=== PATIENT | male | born 1935 | race Caucasian/White ===

== ENCOUNTER → 2017-12-29 09:25 | Outpatient (CLI) | payer MEDICARE, SELFPAY ==
--- NOTE | 2017-12-29 09:29 | CDU_ITS ---
Reason For Study: Carotid artery stenosis Rt. Velocities/BP Lt. Velocities/BP Prox CCA 112/14.1 cm/sec. Prox CCA 80.3/10.6 cm/sec. Mid CCA 88/11.8 cm/sec. Mid CCA 69.8/8.21 cm/sec. Dist CCA 69.1/7.07 cm/sec. Dist CCA 57.5/7.04 cm/sec. Prox ICA 50.7/11.8 cm/sec. Prox ICA 52.2/11.1 cm/sec. Mid ICA 81.5/15.2 cm/sec. Mid ICA 125/25.6 cm/sec. Dist ICA 90.9/14.1 cm/sec. Dist ICA 115/17.2 cm/sec. Rt. ICA/CCA = 1.03. Lt. ICA/CCA = 1.56. Prox ECA 101 cm/sec. Prox ECA 97.4 cm/sec. Rt. Vert. 56.3/10.6 cm/sec. Lt. Vert. 63.3/13.5 cm/sec. Right Extracranial There is heterogeneous, irregular atherosclerotic plaque noted in the right common carotid artery. There is heterogeneous, irregular atherosclerotic plaque noted in the right internal carotid artery. There is heterogeneous, irregular atherosclerotic plaque noted in the right external carotid artery. Antegrade flow is noted in the right vertebral artery. Left Extracranial There is heterogeneous, smooth atherosclerotic plaque noted in the left common carotid artery. There is intimal thickening but no significant atherosclerotic plaque noted in the left internal carotid artery. There is intimal thickening but no significant atherosclerotic plaque noted in the left external carotid artery. Antegrade flow is noted in the left vertebral artery. Procedure Carotid Duplex 27640. Exam performed in department. Interpretation Summary Mild (<50%) stenosis right extracranial internal carotid. Mild (<50%) stenosis left extracranial internal carotid. Flow within the vertebral arteries is antegrade bilaterally. Ordering Physician: Eric Moyer Referring Physician: Carson Burton M.D. Performed By: Gila ADELA, Ashli BURR and Student
== END ==
PROVIDERS: Family Provider Family Medicine; PCP Family Medicine; Referring Provider Surgery Vascular Surgery; Visit Provider Surgery Vascular Surgery
DX: I65.23 Occlusion and stenosis of bilateral carotid arteries (principal); E11.9 Type 2 diabetes mellitus without complications; I10 Essential (primary) hypertension; E78.00 Pure hypercholesterolemia, unspecified
CPT/HCPCS: 93880

== ENCOUNTER → 2018-02-04 07:59 | Outpatient (CLI) | payer MEDICARE, SELFPAY ==
[2018-02-04 10:36] LABS: Anion Gap 10 (5-15); BUN 20 mg/dL (7-18); BUN/Creat Ratio 18.3 RATIO (10-20); Chloride 104 mmol/L (98-107); Cholesterol 164 mg/dL (200); Creatinine, Serum 1.09 mg/dL (0.70-1.30); EST Glomerular Filtration Rate 69 mL/min (>60); Est Glom Filt Rate - Afr Amer 83 mL/min (>60); Glucose 150 mg/dL (74-106); High Density Lipoprotein 37 mg/dL; Potassium 4.5 mmol/L (3.5-5.1); Sodium Level 142 mmol/L (136-145); Triglycerides 207 mg/dL; Very Low Density Lipoprotein 41 mg/dL (5-40)
[2018-02-04 10:37] LABS: Hemoglobin A1c 7.3 % (4.2-6.3)
--- OUTSIDE RECORDS SUMMARY | 2018-03-22 19:34 | XMS RPT_ITS ---
:1935 Author Organization OHIP Care Team Providers Name Role Phone Carson Burton Attending Unavailable Carson Burton Primary Care Unavailable Eric Moyer Attending Unavailable Eric Moyer Referring Unavailable Carson Burton Primary Care Unavailable PROBLEMS PROBLEMS No Problem Records FoundPROCEDURES PROCEDURES No Procedure Records FoundRESULTS RESULTS BASIC METABOLIC Collected: 02/04/2018 Status: F Source: TITO PROFILE (BMP) 8:00 AM [facility] REPOSITORY Order Comment: Order Date: 08/17/17 Order Info: [id number] - BMP Order Info: [id number] - LIPID TYPE CODE TESTS RESULT OUT OF RANGE REFERENCE UNITS LAB L501.0100 74-106 mg/dL High GLU 150 Result Comment: Fasting Glucose result greater than or equal to 126 mg/dL suggests DIABETES MELLITUS per A.D.A. criteria. Please note revised GLUCOSE reference range effective 2017. LAB L501.1000 7-18 mg/dL High BUN 20 LAB L501.1100 0.70-1.30 mg/dL Normal CREAT,SERUM 1.09 Result Comment: The validity of the calculated GFR AND GFRAA in patients over 70 years has not been determined. Clinical correlation is essential. LAB L501.1110 >60 mL/min Normal EST GFR 69 Result Comment: Non- GFR Calc LAB L501.1115 >60 mL/min Normal EST GFR - AA 83 Result Comment: GFR Calc LAB L501.1300 10-20 RATIO Normal BUN/CRE 18.3 LAB L501.2200 8.5-10.1 mg/dL CA Normal 9.0 LAB L501.5300 136-145 mmol/L NA Normal 142 LAB L501.5600 3.5-5.1 mmol/L K Normal 4.5 LAB L501.5900 98-107 mmol/L CL Normal 104 LAB L501.6100 21.0-32.0 mmol/L Normal CO2 28.0 LAB L501.6200 5-15 Normal GAP 10 Performed By: #### L500.2500, L500.4100, L501.9985 #### [facility] [address] [facility]. [place], [place], [id number] LIPID PROFILE Collected: 02/04/2018 Status: F Source: VERGENNES 8:00 AM [facility] REPOSITORY Order Comment: Order Date: 08/17/17 Order Info: [id number] - [facility] Order Info: [id number] - LIPID TYPE CODE TESTS RESULT OUT OF RANGE REFERENCE UNITS LAB L501.4900 200 mg/dL Normal CHOL 164 Result Comment: <200 mg/dL Desirable 200-240 mg/dL Borderline >240 mg/dL High Risk LAB L501.5000 mg/dL High TRIG 207 Result Comment: The drugs N-Acetylcysteine and Metamizole may falsely depress this assay. Serum Triglycerides Reference Interval Normal <150 mg/dL Borderline high 150 - 199 mg/dL High 200 - 499 mg/dL Very High > or = 500 mg/dL LAB L501.6400 mg/dL Low HDL 37 Result Comment: The drugs N-Acetylcysteine and Metamizole may falsely depress this assay. Reference Range HDL <40 mg/dL Low HDL Cholesterol HDL >or= 60 mg/dL High HDL Cholesterol LAB L501.6500 0-130 mg/dL Normal LDL 86 LAB L501.6600 5-40 mg/dL High VLDL 41 Performed By: #### L500.2500, L500.4100, L501.9985 #### [facility] [address] [place], [place], [id number] HEMOGLOBIN A1C Collected: 02/04/2018 Status: F Source: VERGENNES 8:00 AM [facility] REPOSITORY Order Comment: Order Date: 08/17/17 Order Info: [id number] - A1C TYPE CODE TESTS RESULT OUT OF RANGE REFERENCE UNITS LAB L501.9985 4.2-6.3 % High HGB A1C 7.3 Performed By: #### L500.2500, L500.4100, L501.9985 #### [facility] [address] [place], [address] CAROTID DUPLEX Observed: 12/29/2017 Status: F Source: VERGENNES ULTRASOUND 10:49 AM [facility] REPOSITORY [facility] Cardi[facility] Services [address] [place] [address] Carotid Duplex Ultrasound 12/29/17 0932 MR#: [id number] Acct: [id number] Name: JIM CORADO Rep #: [id number] : 1935 82 From: Eric Moyer MD Attending Dr: Eric Moyer MD Status: REG CLI Ordering Dr: Eric Moyer MD Date: 12/29/17 Location: CVS Sex: M C Admitted: Reason For Study: Carotid artery stenosis Rt. Velocities/BP Lt. Velocities/BP Prox CCA 112/14.1 cm/sec. Prox CCA 80.3/10.6 cm/sec. Mid CCA 88/11.8 cm/sec. Mid CCA 69.8/8.21 cm/sec. Dist CCA 69.1/7.07 cm/sec. Dist CCA 57.5/7.04 cm/sec. Prox ICA 50.7/11.8 cm/sec. Prox ICA 52.2/11.1 cm/sec. Mid ICA 81.5/15.2 cm/sec. Mid ICA 125/25.6 cm/sec. Dist ICA 90.9/14.1 cm/sec. Dist ICA 115/17.2 cm/sec. Rt. ICA/CCA = 1.03. Lt. ICA/CCA = 1.56. Prox ECA 101 cm/sec. Prox ECA 97.4 cm/sec. Rt. Vert. 56.3/10.6 cm/sec. Lt. Vert. 63.3/13.5 cm/sec. Right Extracranial There is heterogeneous, irregular atherosclerotic plaque noted in the right common carotid artery. There is heterogeneous, irregular atherosclerotic plaque noted in the right internal carotid artery. There is heterogeneous, irregular atherosclerotic plaque noted in the right external carotid artery. Antegrade flow is noted in the right vertebral artery. Left Extracranial There is heterogeneous, smooth atherosclerotic plaque noted in the left common carotid artery. There is intimal thickening but no significant atherosclerotic plaque noted in the left internal carotid artery. There is intimal thickening but no significant atherosclerotic plaque noted in the left external carotid artery. Antegrade flow is noted in the left vertebral artery. Procedure Carotid Duplex 30309. Exam performed in department. Interpretation Summary Mild (<50%) stenosis right extracranial internal carotid. Mild (<50%) stenosis left extracranial internal carotid. Flow within the vertebral arteries is antegrade bilaterally. Ordering Physician: Eric Moyer Referring Physician: Carson Burton M.D. Performed By: Gila CHAPMAN RVT, Carrie and Student 12/29/178 Date Eric Moyer MD CC: Eric Moyer MD; Carson Burton MD Date Dictated: 12/29/17 0932 Date Transcribed: 12/29/171047 Poultry Killer: Signed ALLERGIES ALLERGIES No Allergies Records FoundENCOUNTERS ENCOUNTERS ADMIT/DISCHARGE ACCOUNT ADMITTING ENCOUNTER LOCATION SOURCE NUMBER [facility] 02/04/2018 [id number] [facility] 2 [facility] ing:MFPLAB Repository 12/29/2017 [id number] [facility] 0 [facility] ing:[facility] Repository PAYERS PAYERS ENCOUNTER GUARANTOR PAYER SUBSCRIBER SOURCE 02/04/2018 JIM Hagan Primary JIM Monroe [id number] Insurance:SAMSON RAFFERTYDOB: [facility] [id number] Number: [place]ository [place] [address]Chd: [phone] [id number] [phone] () Date:[id number] [address] [place] [id number]: 02/04/2018 Secondary NOT GIVENUNK [place] Insurance:SELF PAY [facility] Number: Effective Repository Date:2018-02-04 12/29/2017 JIM Hagan Primary JIM Monroe [id number] Insurance:SAMSON RAFFERTYDOB: [facility] [id number] Number: Repository [place] [address]Oow: [phone] [id number] [phone] () Date:[id number] [address] [phone]: 12/29/2017 Secondary NOT GIVENUNK [place] Insurance:SELF PAY [facility] Number: Effective Repository Date:2017-12-16
== END ==
PROVIDERS: Family Provider Family Medicine; PCP Family Medicine; Visit Provider Family Medicine
DX: I10 Essential (primary) hypertension (principal); E11.9 Type 2 diabetes mellitus without complications; E78.5 Hyperlipidemia, unspecified
CPT/HCPCS: 36415; 80048; 80061; 83036

== ENCOUNTER 2019-01-11 10:23 | Observation (INO) | payer MEDICARE, SELFPAY ==
[2019-01-11] VITALS (12 sets, daily range): BP systolic 149–190; BP diastolic 70–90; PULSE 77–98; RESP 12–19; TEMP 36.7–36.8; O2SAT 95–98; BMI 35.2; BMI 34.7
--- NOTE | 2019-01-11 10:42 | EKG12_ITS ---
Test Reason : REPEAT Blood Pressure : / mmHG Vent. Rate : 077 BPM Atrial Rate : 077 BPM P-R Int : 160 ms QRS Dur : 086 ms QT Int : 424 ms P-R-T Axes : 045 037 135 degrees QTc Int : 479 ms Normal sinus rhythm ST & T wave abnormality, consider anterolateral ischemia Prolonged QT Abnormal ECG Confirmed by NATALEE MILIAN, JULISSA ([id number]), editor house organ JIMMY LOAIZA ([id number]) on 01/13/2019 12:31:24 PM Referred By: Darya Dobbins Confirmed By:LASHANDA ALBRIGHT MD
--- NOTE | 2019-01-11 10:42 | RAD_ITS ---
STUDY: X-RAY CHEST REASON FOR EXAM: Male, 83 years old. Chest pain. TECHNIQUE: Single AP portable view of the chest. COMPARISON: None. FINDINGS: There is elevation of the right hemidiaphragm. Blunting of the right cosmetic angle. There is moderate cardiac enlargement. Normal mediastinum and fabi. Normal visualized pulmonary arteries. There is atherosclerotic calcification of the aortic arch with tortuosity. There are diffuse degenerative changes of the visualized thoracic spine. Normal visualized ribs, clavicles, and shoulders. There is no demonstrated abnormality of the visualized soft tissue structures of the upper abdomen. RAD/Chest 1 View (Portable) IMPRESSION: Moderate cardiomegaly. No acute abnormality is seen. Electronically Signed: Jese Pitt, at 11:03 EST , Service support ,
--- NOTE | 2019-01-11 10:46 | ED.VIS.GEN ---
History of Present Illness Chief Complaint: Chest Pain Informant: Patient, Significant Other Onset: Days - Set January 09 Context: Onset with activity Timing: Intermittent Quality: Soreness Location: Anterior chest Current Severity: Mild Maximum Severity: Moderate Worsened by: Activity Relieved by: Nothing Associated Symptoms: Dyspnea Narrative: Patient is an elderly male who is a poor informant. He needs to be redirected multiple times since he did not answer question. interjected with him she disagreed with his responses. Patient had intermittent anterior chest discomfort that is precipitated by activity. He has had several episodes since Wednesday. He does report dyspnea. He denies radiation, diaphoresis or nausea. He has multiple risk factors. He denies leg swelling. His states he has had swelling for sometimes with imprint of the sock noted at night. He denies orthopnea or PND. concurs. He denies fever or chills. He denies hematemesis, melena hematochezia. He denies food intolerance. There is no history of PE or DVT. Patient takes a low-dose aspirin daily. He has no known coronary artery disease. Prior similar symptoms: No Recent Illness/Hospitalization: No - Past Medical History (1) History of hypertension Status: Acute (2) History of hypercholesterolemia Status: Acute (3) History of diabetes mellitus, type II Status: Acute Past Medical History - Allergies and Home Meds Allergies/Adverse Reactions: Allergies No Known Allergies Allergy (Verified 01/11/19 10:23) Primary Care Physician: Carson Stone MD [Primary Care Provider] - Prior records reviewed: Yes Surgical History: noncontributory Lives: Spouse/ Significant Other Smoking Status: Former smoker Alcohol: None Drugs: None Review of Systems General: Denies: Chills, Fever, Malaise, Subjective, Sweats Eyes: Denies: Visual changes - bilaterally, Blurred Vision - bilaterally, Diplopia ENT: Denies: Rhinorrhea, Sore throat Cardiovascular: Reports: Chest pain. Denies: Palpitations, Heart racing, -, - Respiratory: Reports: Dyspnea, Dyspnea on exertion. Denies: Cough, Sputum, Orthopnea, Paroxysmal nocturnal dyspnea, -, - Gastrointestinal: Denies: Abdominal pain, Nausea, Vomiting, Diarrhea, Melena, Hematochezia Genitourinary: Denies: Dysuria, Hematuria, Frequency Musculoskeletal: Reports: Swelling. Denies: Myalgias, Arthralgias, Neck pain, Back pain, Extremity Pain Skin: Denies: Rash, Wounds Neurological: Denies: Headache, Weakness, Numbness Hematologic: Denies: Easy bruising, Easy bleeding Physical Exam Vital Signs/Narrative: Vital Signs Temp Pulse Resp BP Pulse Ox 01/11/19 10:24 98.1 F 90 17 162/74 H 96 Inital Vital Signs reviewed: Yes General: Well nourished, Well developed, No Acute Distress Head: Normocephalic, Atraumatic Eyes: Perrl, EOMI. Negative for: Pale conjunctiva, Scleral icterus ENT: Moist mucous membranes, No rhinorrhea Neck: Supple, Nontender, No lymphadenopathy, No JVD Cardiovascular: Regular rate, Regular rhythm, No murmurs, Normal S1, Normal S2 Respiratory: No distress, CTA bilaterally, Chest nontender Abdomen: Soft, Nontender, Nondistended, Normal bowel sounds Back: Nontender, Normal Inspection Extremities: Nontender, Edema - Pitting edema bilaterally. There is no discoloration of lower extremities or asymmetry. There is no palpable cords, leg vein distention or tenderness along the distribution of deep venous system. Skin: Normal color, No rash, No Trauma. Negative for: Cyanosis, Diaphoresis, Jaundice Neurological: Alert, Oriented x3, Cranial nerves II-XII grossly intact, Normal Strength, Normal Sensation Psychological: Normal affect, Normal Mood Diagnostic/Tx/Re-eval Chest X-Ray - ED: 1 View, Read by ED Physician, Normal, Mediastinum, Bony Structures, No Acute Disease, Chronic Changes, Cardiomegaly - There is mild to moderate cardiomegaly. The cardiac silhouette is normal. Impressions Chest X-Ray 01/11/19 10:42 IMPRESSION: Moderate cardiomegaly. No acute abnormality is seen. Electronically Signed: Jese Sweetie, at 11:03 EST , Service support , 01/11/19 10:42 Chest 1 View (Portable) [RAD] Stat Laboratory Results 01/11/19 01/11/19 11:28 11:28 WBC 7.7 RBC 4.56 L Hgb 14.6 Hct 43.3 MCV 95.0 H MCH 32.0 MCHC 33.7 RDW Std Deviation 43.7 RDW Coeff of Genesis 12.5 Plt Count 215 MPV 10.8 Immature Gran % (Auto) 0.300 Neut % (Auto) 55.1 Lymph % (Auto) 32.2 [place] % (Auto) 10.0 Eos % (Auto) 1.6 Baso % (Auto) 0.8 Absolute Neuts (auto) 4.3 Absolute Lymphs (auto) 2.48 Nucleated RBC % 0 Sodium 139 Potassium 4.2 Chloride 103 Carbon Dioxide 28.0 Anion Gap 8 BUN 16 Creatinine 1.12 Estim Creat Clear Calc 55.49 Est GFR (MDRD) Af Amer 80 Est GFR (MDRD) Non-Af 66 BUN/Creatinine Ratio 14.3 Glucose 176 H Calcium 9.1 Troponin I < 0.015 Tone is normal which would indicate patient has not had an PR. Since he has EKG changes which are concerning with a good story cardiology was paged as well as hospitalist for admission. - EKG Initial EKG Interpretation: Sinus Rhythm - Sinus rhythm with a ventricular rate 89. CT interval is 162 ms. QRS duration 90 ms. QT duration 402 ms. [place] is normal. There is evidence of anterolateral ischemic changes. Patient is presently having pain. This is different compared to EKG from 25 years ago which is the only old EKG for comparison Prior: Changed - Medical Decision Making Resents with classic exertional angina. Patient's EKG compared to 25 years ago reveals a ischemic changes anterior lateral leads. Patient was treated with aspirin, Lovenox and appropriate work-up was initiated. Will speak with wafer machine operator and hospitalist once laboratory results are available for review. He also received nitroglycerin sublingual. ED Disposition - Plan for ED Patient: Disposition: Acute Care [facility] Diagnosis: Exertional chest pain, History of diabetes mellitus, type II, History of hypercholesterolemia, History of hypertension Referrals: Carson Stone MD [Primary Care Provider] -
--- NOTE | 2019-01-11 10:49 | NURSING ---
NO OLD EKGS
[2019-01-11] MEDS: Aspirin 81 MG TAB.CHEW 324 MG PO (11:28)
[2019-01-11] MEDS: Enoxaparin 100 MG/ML Syringe 120 MG SC (11:29)
[2019-01-11 11:51] LABS: Absolute Lymphocyte Count 2.48 X10^3/uL (0.83-4.51); Absolute Neutrophil Count 4.3 X10^3/uL (2.0-7.7); Basophil# 0.06 X10^3/uL; Basophil% 0.8 % (0-1); Eosinophil# 0.12 X10^3/uL; Eosinophils% 1.6 % (0-5); Hematocrit 43.3 % (40-54); Hemoglobin 14.6 g/dL (13.0-16.5); Lymphocyte # 2.48 X10^3/ul (4.0); Lymphocyte % 32.2 % (19-41); Mean Corp Hgb Conc 33.7 g/dL (32-36); Mean Platelet Vol. 10.8 fl (6.2-12.0); Monocyte# 0.77 X10^3/uL; NRBC Flagged by Analyzer 0 % (0-5); Neutrophil # 4.26 X10^3/uL (2.7-7.7); Neutrophil % 55.1 % (47-70); Platelet Count 215 K/mm3 (150-450); RBC Distribution Width CV 12.5 % (11.6-14.6); RBC Distribution Width SD 43.7 fl (35.1-43.9); Red Blood Count 4.56 M/mm3 (4.6-6.2); White Blood Count 7.7 K/mm3 (4.4-11.0)
[2019-01-11 12:07] LABS: Anion Gap 8 (5-15); BUN 16 mg/dL (7-18); BUN/Creat Ratio 14.3 RATIO (10-20); Calcium,Total 9.1 mg/dL (8.5-10.1); Chloride 103 mmol/L (98-107); Creatinine, Serum 1.12 mg/dL (0.70-1.30); EST Glomerular Filtration Rate 66 mL/min (>60); Est Glom Filt Rate - Afr Amer 80 mL/min (>60); Estimated Creatinine Clearance 55.49 ml/min; Glucose 176 mg/dL (74-106); Potassium 4.2 mmol/L (3.5-5.1); Sodium Level 139 mmol/L (136-145)
--- NOTE | 2019-01-11 12:17 | HP.PCM_ITS ---
History of Present Illness Date of Admission: 01/11/19 Chief Complaint: chest pain The patient is a 83 year old M with a PMH as outlined chrissy. He was admitted through the ED on 01/11/19 with a complaint of chest pain which started a day prior to admission. Chest pain was retrosternal, pressure like, exacerbated by activity and relieved by rest. He had associated shortness of breath which was also exacerbated by activity and relieved by rest. He denied any headache, palpitations, blurred vision, lightheadedness or dizziness. Review of systems was otherwise negative. Initial troponin was negative and CBC was unremarkable. BMP was also unremarkable. Initial EKG did showed T wave inversions in the an terior lateral leads. He has been admitted to manage for chest pain to rule out ACS. [] Past Medical History Allergies No Known Allergies Allergy (Verified 01/11/19 10:23) Home Medications: Ambulatory Orders Medication Instructions Recorded Aspirin 81 mg PO QHS 01/11/19 Atorvastatin Calcium 20 mg PO QHS 01/11/19 Metformin HCl 500 mg PO BID 01/11/19 [place]-3 Fatty Acids/Fish Oil [Fish 1 ea PO DAILY 01/11/19 Oil 1,000 mg Capsule] Quinapril HCl 10 mg PO DAILY 01/11/19 Surgical History: noncontributory Lives: Spouse/ Significant Other Smoking Status: Former smoker Alcohol: None Drugs: None - *Family History Sibling History Items: Heart Disease - says they had valves replaced. Maternal History Items: No pertinent history Review of Systems Constitutional: Denies: Chills, Fever, Malaise, Weakness, Weight Change, Fatigue Eyes: Denies: Blurred vision HEENT: Denies: Head Aches, Sinus Congestion, Sinus Drainage Cardiovascular: Reports: Chest Pain. Denies: Chest Pressure, Chest Tightness, Edema, Heaviness, Orthopnea, Palpitations, Paroxysmal Noc. Dyspnea, Syncope Respiratory: Denies: Cough, Shortness of Breath, Shortness of breath at rest, Shortness of breath upon exertion, Sputum production Gastrointestinal: Denies: Abdominal Pain, Nausea, Vomiting Genitourinary: Denies: Dysuria Musculoskeletal: Denies: Joint Pain, Joint Tenderness Skin: Denies: Rash, Wounds Neurological: Denies: Numbness, Tingling, Focal weakness Psychiatric: Denies: Anxiety, Depression, Homicidal Ideations, Suicidal Ideations Hematologic/ Lymphatic: Denies: Easy Bruising, Easy Bleeding VTE Information - Inpt Only VTE Present on Admission: No VTE Pharm Prophylaxis ordered?: Yes Patient Problems: Active and Suspected Problems History of hypertension (Acute) History of hypercholesterolemia (Acute) History of diabetes mellitus, type II (Acute) Exertional chest pain (Acute) - Physical Exam Vitals/I&O's: Vital Signs Temp Pulse Resp BP Pulse Ox 98.1 F 81 19 H 161/85 H 97 01/11/19 10:24 01/11/19 11:22 01/11/19 11:22 01/11/19 11:22 01/11/19 11:22 Oxygen Flow Rate (L/min) 2 Oxygen Delivery Method Room Air Weight: 267 lb 3.204 oz Body Mass Index (BMI) 35.2 General: Alert, Oriented x3, Cooperative, No apparent distress HEENT: Atraumatic, PERRLA, EOMI, Normocephalic Oral: Moist Mucosa Neck: Supple, No JVD, Negative Carotid Bruits Lungs: Clear to auscultation, Normal air movement, No rhonchi, No wheeze, No rales Cardiovascular: Regular rate, Regular Rhythm, Normal S1, Normal S2, No murmurs Abdomen: Bowel Sounds Present, Soft, Non Tender, Non-Distended, No Hepato- splenomegaly Extremities: No clubbing, No cyanosis, No edema, Capillary Refill Less than 3 Seconds Skin: No rashes, No breakdown Musculoskeletal: No Tenderness to Palpation of Joints or Extremities Lymphatic: No Cervical, Supraclavicular, or Inguinal Adenopathy Neurological: Cranial nerves II-XII grossly intact, Neuro grossly intact, Motor Exam 5/5 strength throughout Psych/Mental Status: Normal Affect, Appropriate, Alert and oriented to time, place, person, mood and affect Laboratory Results 01/11/19 11:28: WBC 7.7, RBC 4.56 L, Hgb 14.6, Hct 43.3, MCV 95.0 H, MCH 32.0, MCHC 33.7, RDW Std Deviation 43.7, RDW Coeff of Genesis 12.5, Plt Count 215, MPV 10.8, Immature Gran % (Auto) 0.300, Neut % (Auto) 55.1, Lymph % (Auto) 32.2, [place] % (Auto) 10.0, Eos % (Auto) 1.6, Baso % (Auto) 0.8, Absolute Neuts (auto) 4.3, Absolute Lymphs (auto) 2.48, Nucleated RBC % 0 01/11/19 11:28: Sodium 139, Potassium 4.2, Chloride 103, Carbon Dioxide 28.0, Anion Gap 8, BUN 16, Creatinine 1.12, Estim Creat Clear Calc 55.49, Est GFR (MDRD) Af Amer 80, Est GFR (MDRD) Non-Af 66, BUN/Creatinine Ratio 14.3, Glucose 176 H, Calcium 9.1, Troponin I < 0.015 Diagnostic Data Chest X-Ray 01/11/19 10:42 IMPRESSION: Moderate cardiomegaly. No acute abnormality is seen. Electronically Signed: Jese Pitt, at 11:03 EST , Service support , Current Medications Nitroglycerin (Nitrostat) 0.4 mg SUBLINGUAL Q5M PRN PRN Reason: Chest pain Assessment/Plan All Active Problems History of hypertension (Acute) History of hypercholesterolemia (Acute) History of diabetes mellitus, type II (Acute) Exertional chest pain (Acute) 83-year-old admitted with complaint of chest pain 1. Chest pain to r/o ACS * admit to pCU with telemetry * initial troponin was negative, and EKG showed t wave inversions in triny lateral leads * will cycle troponins * check lipid panel and A1C * SL nitroglycerin prn; PO aspirin 81mg daily * consult cardiology * 2. Hyperlipidemia * Lipid panel showed triglycerides of 223 and total cholesterol of 188 with LDL of 104 and HDL of 39. On statin. Will continue. 3. Hypertension * Blood pressure was 163/70 at time of review. On lisinopril. Will resume. 4. Type 2 diabetes mellitus: A1c 7.6. Hold metformin. Insulin sliding scale. Accu-Cheks before meals at bedtime. DVT Prophylaxis: Lovenox Code Status: Full code * Patient counseled extensively about different types of CODE STATUS including full code, DNR CCA and DNR CCA. Patient elects to be full code. Total oyxd-gb-qboy time 16 minutes. * Code Visit OBSV E&M: 61350 Initial observation care L2 Procedures: 87833 Advncd Care Plan 30 Min
--- NOTE | 2019-01-11 12:21 | EKG12_ITS ---
Test Reason : CP Blood Pressure : / mmHG Vent. Rate : 089 BPM Atrial Rate : 089 BPM P-R Int : 162 ms QRS Dur : 090 ms QT Int : 402 ms P-R-T Axes : 062 048 131 degrees QTc Int : 489 ms Normal sinus rhythm ST & T wave abnormality, consider anterolateral ischemia Prolonged QT Abnormal ECG Confirmed by NATALEE MILIAN, JULISSA ([id number]), movie editor JIMMY LOAIZA ([id number]) on 01/13/2019 12:31:40 PM Referred By: Darya Dobbins Confirmed By:LASHANDA ALBRIGHT MD
[2019-01-11] MEDS: TICAGRELOR 90 MG TABLET 180 MG PO (12:42)
[2019-01-11 13:40] LABS: Cholesterol 188 mg/dL (200); High Density Lipoprotein 39 mg/dL; Triglycerides 223 mg/dL; Very Low Density Lipoprotein 45 mg/dL (5-40)
[2019-01-11 13:47] LABS: Hemoglobin A1c 7.6 % (4.2-6.3)
--- NOTE | 2019-01-11 14:24 | ECHOCS_ITS ---
Reason For Study: CHEST PAIN Procedure This was a 2D Doppler, Color Flow transthoracic echocardiogram. The study was technically difficult. Due to body habitus. Contrast injection was performed. Exam performed portable in ICU/CCU. Left Ventricle Moderate concentric left ventricular hypertrophy. The estimated ejection fraction is 75 %. Stage 1 diastolic dysfunction. No regional wall motion abnormalities noted. Right Ventricle Normal size and thickness. Normal systolic function. Atria The left atrium is severely enlarged. Normal right atrium. Normal atrial septum. Mitral Valve Mild diffuse mitral valve thickening. Severe mitral annular calcification extending into the posterior leaflet. Trivial mitral valve insufficiency. Tricuspid Valve Normal tricuspid valve. Mild (1+) tricuspid valve insufficiency. Right ventricular systolic pressure estimated to be 39 mmHg. Mild pulmonary hypertension. Aortic Valve Normal aortic valve. Trisinus/trileaflet aortic valve. Pulmonic Valve Normal pulmonic valve. Great Vessels Normal aortic root. Normal arch. Normal inferior vena cava. Inferior vena cava collapse with sniff. Pericardium/Pleural No pericardial effusion. Medication Diluted definity 3.0ml given slow IV push to enhance endocardial definition. MMode/2D Measurements & Calculations LVIDd: 5.0 cm IVSd: 1.5 cm Ao root diam: 3.7 cm LVIDs: 3.0 cm LVPWd: 1.3 cm RVDd: 3.6 cm FS: 38.9 % LAV(MOD-bp): 126.9 ml LA A4 area: 31.9 cm2 LA dimension(2D): 4.7 cm LAV(MOD-bp) Indexed: 52.6 ml/m2 LAV(MOD-sp2): 120.3 ml LAV(MOD-sp4): 113.7 ml RA A4 area: 14.8 cm2 Time Measurements MV dec time: 0.19 sec Doppler Measurements & Calculations MV E max lambert: 102.8 cm/sec Lat Peak E' Lambert: 5.3 cm/sec Med Peak E' Lambert: 5.0 cm/sec MV A max lambert: 136.0 cm/sec E/E' lat: 19.4 E/E' med: 20.4 MV E/A: 0.76 Ao V2 max: 137.4 cm/sec LV V1 max: 108.1 cm/sec PA V2 max: 97.8 cm/sec Ao max P.5 mmHg LV V1 max P.7 mmHg TR max lambert: 291.0 cm/sec TR max P.9 mmHg Interpretation Summary Moderate concentric left ventricular hypertrophy. The estimated ejection fraction is 75 %. Stage 1 diastolic dysfunction. The left atrium is severely enlarged. Trivial mitral valve insufficiency. Mild (1+) tricuspid valve insufficiency. Right ventricular systolic pressure estimated to be 39 mmHg. Mild pulmonary hypertension. Compared to echo report dated 04/09/2016, no appreciable changes noted. The study was technically difficult. Contrast injection was performed. Ordering Physician: Alex Fernández Referring Physician: Carson Stone Performed By: Stefani Mir, ADELA, RVT
--- NOTE | 2019-01-11 15:31 | CON.PCM_ITS ---
Problem List (1) Abnormal EKG Status: Acute (2) History of hypertension Status: Acute (3) History of hypercholesterolemia Status: Acute (4) History of diabetes mellitus, type II Status: Acute (5) Exertional chest pain Status: Acute Reason for Consult Date of Consultation: 01/11/19 Reason for Consultation: Unstable angina, chest pain, shortness of breath, dyspnea on exertion, abnormal EKG, hypertension, peripheral vascular disease, hyperlipidemia History of Present Illness: The patient is a 83 year old M, no previous known coronary disease, last catheterization was in 1995 at a facility in [place] and was told his arteries were normal, with hypertension, diabetes, hypercholesterolemia, peripheral vascular disease status post left carotid CEA by Dr. Moyer in 2017. Prior to that I had seen him in consultation and ordered a stress test which was negati ve. He is a former smoker who quit around 45 years ago. He has never been evaluated for COPD. He denies previous CVA or TIA. Patient has been in normal health up until the last several months when he has had progressively worsening fatigue, shortness of breath and dyspnea on exertion. Over the last 2 weeks this has progressed to exertional chest pressure and pain which was described as a heaviness, nonradiating, with associated shortness of breath. When it occurred again today his family urged him to come to the emergency room. In the ER his EKG showed normal sinus rhythm with anterior T wave inversion. The patient was given a single sublingual nitroglycerin and his chest pain completely resolved and has not returned. The patient was loaded with baby aspirin, Brilinta, and admitted to the PCU. He is currently resting comfortably, family at the bedside. He has had no recurrence of his chest pain. Troponin is negative. Second troponin is pending. [] Past Medical History Allergies/Adverse Reactions: Allergies No Known Allergies Allergy (Verified 01/11/19 10:23) Home Medications: Ambulatory Orders Medication Instructions Recorded Aspirin 81 mg PO QHS 01/11/19 Atorvastatin Calcium 20 mg PO QHS 01/11/19 Metformin HCl 500 mg PO BID 01/11/19 [place]-3 Fatty Acids/Fish Oil [Fish 1 ea PO DAILY 01/11/19 Oil 1,000 mg Capsule] Quinapril HCl 10 mg PO DAILY 01/11/19 Surgical History: noncontributory - *Family History Sibling History Items: Heart Disease - says they had valves replaced. Maternal History Items: No pertinent history Lives: Spouse/ Significant Other Smoking Status: Former smoker Alcohol: None Drugs: None Review of Systems - Review of Systems General: Denies: Fever, Night Sweats, Fatigue Cardiovascular: Reports: Chest Discomfort, Chest Discomfort with Exertion, Chest Pressure, Chest Tightness, Shortness of Breath, Shortness of Breath with Exertion. Denies: Orthopnea, PND, Peripheral Edema, Palpitations, Lightheadedness, Dizziness, Near Syncope, Syncope Respiratory: Denies: Cough, Sputum Production, Hemoptysis Gastrointestinal: Denies: Hematemesis, Hematochezia, Melena Genitourinary: Denies: Dysuria, Hematuria Skin: Denies: Rash Subjectve: Patient resting comfortably, no acute distress. Objective: Vital Signs Temp Pulse Resp BP Pulse Ox 98.3 F 77 16 163/70 H 97 01/11/19 13:07 01/11/19 13:33 01/11/19 13:33 01/11/19 13:33 01/11/19 13:33 Oxygen Flow Rate (L/min) 2 Oxygen Delivery Method Room Air Weight: 263 lb 0.183 oz Body Mass Index (BMI) 34.7 General: Awake, Alert, Oriented x 3 HEENT: PERRL, EOMI, Sclera Non Icteric Neck: Supple, Good ROM, No Lymph Node Enlargement Lungs: Clear to auscultation Cardiovascular: Regular Rhythm, Normal S1, Normal S2, No Murmurs, No Rubs, No Gallops Vascular: No Carotid Bruits, Normal Femoral Pulses, Normal Radial Pulses, Normal Dorsalis Pedal Pulse, Normal Posterior Tibial Pulses Abdomen: Bowel Sounds Present, Soft, Non Tender, No HSM, No Organomegaly Extremities: No Cyanosis, No Clubbing, No edema Neurological: No Focal Motor or Sensory Deficit 01/11/19 11:28: WBC 7.7, RBC 4.56 L, Hgb 14.6, Hct 43.3, MCV 95.0 H, MCH 32.0, MCHC 33.7, Plt Count 215, MPV 10.8, Immature Gran % (Auto) 0.300, Neut % (Auto) 55.1, Lymph % (Auto) 32.2, [place] % (Auto) 10.0, Eos % (Auto) 1.6, Baso % (Auto) 0.8, Absolute Neuts (auto) 4.3, Nucleated RBC % 0 01/11/19 11:28: Sodium 139, Potassium 4.2, Chloride 103, Carbon Dioxide 28.0, Anion Gap 8, BUN 16, Creatinine 1.12, Est GFR (MDRD) Af Amer 80, Est GFR (MDRD) Non-Af 66, BUN/Creatinine Ratio 14.3, Glucose 176 H, Calcium 9.1, Troponin I < 0.015 01/11/19 11:28: Triglycerides 223 H, Cholesterol 188, LDL Cholesterol 104, VLDL Cholesterol 45 H, HDL Cholesterol 39 L 01/11/19 11:28: Hemoglobin A1c 7.6 H Rhythm: Telemetry negative. EKG: As above ECHO: Pending Stress Test: Cardiac Cath: Pending PCI: CT Surgery: Holter monitor: EPS: PPM: CXR: Chest CT Scan: Assessment/Plan 1. Unstable angina: Patient presents with new onset anginal symptoms over the last 2 weeks with associated dyspnea on exertion, shortness of breath, and fatigue over the last 6 months. Patient has several risk factors for coronary occlusive disease including his age, peripheral vascular disease, diabetes, former smoker, hypertension hypercholesterolemia. His EKG on presentation showed normal sinus rhythm with anterior T wave inversions. His chest pain was relieved with a single sublingual nitroglycerin. I recommend the patient be placed on Nitropaste 1 inch every 6 hours, he was already loaded with aspirin, as well as Brilinta, as well as Lovenox per protocol. In addition I recommend that he be started on Lopressor 25 mg p.o. twice daily, and change his lisinopril to Zestoretic 20/12.5 mg a day given his lower extremity edema and uncontrolled hypertension. Given the patient's signs and symptoms and abnormal EKG, I recommend that he proceed directly to cardiac catheterization as doing a stress test may be unwise if not dangerous. The risk/benefits of the cardiac catheterization procedure were thoroughly explained to the patient, his , and his daughter, including specific attention to lack of on-site surgical back-up, and the patient is agreed to proceed. We will proceed with cardiac catheterization on 01/12/2019. In addition I recommend he undergo a 2D echo with Doppler to evaluate his LV function, pulmonary pressures, and pericardium. 2. Hyperlipidemia: The patient's LDL is 104 and HDL is 39. Recommend increasing his Lipitor to 40 mg p.o. nightly and repeating lipid profile in 6 weeks time. 3. Peripheral vascular disease: Patient may benefit from long-term dual antibiotic therapy depending upon the outcome of his catheterization. He is status post left CEA in 2017. 4. Thank you very much for the opportunity to participate in the cardiac care of your patient. Consultation time took place between 3:00 and 3:40 PM. Code Visit Inpatient E&M: [id number] Init Hosp L2
[2019-01-11] MEDS: Nitroglycerin Oint 1 INCH PACKET TRANSDERM. ×2 (17:00→23:45)
[2019-01-11] MEDS: Insulin Lispro 100 UNIT/ML INSULN.PEN SC (17:01)
[2019-01-11 17:06] LABS: Bedside Glucose 197 mg/dL (70-110)
[2019-01-11] MEDS: Atorvastatin Calcium 40 MG Tablet PO (22:03)
[2019-01-11] MEDS: Metoprolol Tartrate 25 MG Tablet PO (22:03)
[2019-01-11 22:45] LABS: Bedside Glucose 147 mg/dL (70-110)
[2019-01-12] VITALS (26 sets, daily range): BP systolic 107–191; BP diastolic 51–98; PULSE 55–80; RESP 13–20; TEMP 36.1–36.7; O2SAT 93–99
--- NOTE | 2019-01-12 02:45 | EKG12_ITS ---
Test Reason : CP Blood Pressure : / mmHG Vent. Rate : 067 BPM Atrial Rate : 067 BPM P-R Int : 164 ms QRS Dur : 092 ms QT Int : 472 ms P-R-T Axes : 067 045 122 degrees QTc Int : 498 ms Normal sinus rhythm ST & T wave abnormality, consider anterolateral ischemia Prolonged QT Abnormal ECG When compared with ECG of 11-JAN-2019 13:11, MANUAL COMPARISON REQUIRED, DATA IS UNCONFIRMED Confirmed by MALGORZATA MILIAN, NENO ([id number]), pictures editor JIMMY LOAIZA ([id number]) on 01/16/2019 10:02:13 AM Referred By: Darya Dobbins Confirmed By:NENO MCGARRY MD
[2019-01-12] MEDS: Morphine 2 MG/ML Syringe IV (03:11)
[2019-01-12] MEDS: 0.9% Saline Lock 10 ML Syringe IV ×2 (03:12→06:25)
[2019-01-12 03:30] LABS: Absolute Lymphocyte Count 2.64 X10^3/uL (0.83-4.51); Absolute Neutrophil Count 5.3 X10^3/uL (2.0-7.7); Basophil# 0.07 X10^3/uL; Basophil% 0.8 % (0-1); Eosinophil# 0.16 X10^3/uL; Eosinophils% 1.7 % (0-5); Hematocrit 42.6 % (40-54); Hemoglobin 14.5 g/dL (13.0-16.5); Lymphocyte # 2.64 X10^3/ul (4.0); Lymphocyte % 28.4 % (19-41); Mean Platelet Vol. 10.4 fl (6.2-12.0); Monocyte# 1.06 X10^3/uL; Monocyte% 11.4 % (0-10); NRBC Flagged by Analyzer 0 % (0-5); Neutrophil # 5.32 X10^3/uL (2.7-7.7); Neutrophil % 57.2 % (47-70); Platelet Count 211 K/mm3 (150-450); RBC Distribution Width CV 12.4 % (11.6-14.6); RBC Distribution Width SD 42.6 fl (35.1-43.9); Red Blood Count 4.53 M/mm3 (4.6-6.2); White Blood Count 9.3 K/mm3 (4.4-11.0)
[2019-01-12 03:52] LABS: Anion Gap 8 (5-15); BUN 15 mg/dL (7-18); BUN/Creat Ratio 13.3 RATIO (10-20); Chloride 102 mmol/L (98-107); Creatinine, Serum 1.13 mg/dL (0.70-1.30); EST Glomerular Filtration Rate 66 mL/min (>60); Est Glom Filt Rate - Afr Amer 80 mL/min (>60); Glucose 174 mg/dL (74-106); Potassium 4.4 mmol/L (3.5-5.1); Sodium Level 137 mmol/L (136-145)
[2019-01-12] MEDS: HYDROcodone Bitartrate/Apap 5/325 Tablet PO (04:45)
[2019-01-12] MEDS: DiphenhydrAMINE 25 MG Capsule 50 MG PO (06:18)
[2019-01-12] MEDS: 0.9% Normal Saline 1,000 ML 15 ML IV (06:18)
[2019-01-12] MEDS: Nitroglycerin Oint 1 INCH PACKET TRANSDERM. (06:19)
[2019-01-12] MEDS: Metoprolol Tartrate 25 MG Tablet PO ×2 (06:19→21:00)
[2019-01-12] MEDS: Lisinopril 20 MG Tablet PO (06:20)
[2019-01-12] MEDS: Aspirin 81 MG TAB.CHEW PO (06:24)
[2019-01-12 06:40] LABS: Bedside Glucose 190 mg/dL (70-110)
--- NOTE | 2019-01-12 08:20 | NURSING ---
Called report to Skinny MUÑOZ in ICU
[2019-01-12 08:50] LABS: ACT Activated Clotting Time 180 sec (74-137)
--- NOTE | 2019-01-12 08:57 | CL.I_ITS ---
Patient Name: JIM CORADO Study Date: 01/12/2019 Performing: Alex Fernández MD Ht: 73 inches 185 cm : 1935 Wt: 262.7 lbs 119 kg Age: 83 Gender: male BSA: 2.41 PROCEDURE(S) PERFORMED JV18-EJB/COR/LV UZ18-KBC W OR WO PTCA, SINGLE CORONARY ARTERY CLINICAL PROFILE AND CO-MORBIDITIES Indications: ACS > 24 hrs, New Onset Angina <= 2 months, Suspected CAD Heart Failure: None Stress/Imaging Stress/Image Study Performed: No Angina Classification Anginal Classification w/in 2 Weeks: CCS III CAD Presentations: Unstable angina. Other: Abnormal ECG with dynamic anterior lateral ST depressi on and T wave inversion c/w ischmemia. Stress test felt to be too dangerous prior to cath. Comorbidities/Risk Factors: Hypertension Dyslipidemia CONCLUSIONS Non obstructive coronary arteries Single vessel CAD of the proximal, mid and distal LAD Normal LV size, wall motion,and systolic function Perserved Left Ventricular systolic function with normal EDP Successful PTCA/HUDSON mid/distal LAD with a 2.25 x 38 Promus Synergy, post dilated in the proximal 1/3 with a 2.5 x 12 NC balloon, 85%-->0%, no dissection. Successful PTCA/HUDSON proximal/mid LAD using a 2.5 x 38 Promus Synergy, post dilated with a 2.5, 3.0 an d 3.5 x 8 NC balloon at various locations due to ectactic nature of vessel to insure proper stent harjinder osition, 85%-->0%, no dissection. RECOMMENDATIONS Referred for immediate PCI Highly recommend quitting all tobacco products Follow up with primary ship's master Risk factor modification ASA Indefinitley Brilinta or Plavix for at least 12 months Routine post interventional care Refer for Outpatient Cardiac Rehab Manual sheath removal per protocol Follow up with Dr. Fernández Successful Mynx Control closure of RFA. DESCRIPTION OF PROCEDURE The patient arrived to the procedure lab. The risks and benefits of the procedure as well as a full d escription of our services here and lack of surgical backup were fully explained to the patient and/o r their significant other prior to the catheterization. The Timeout was completed, verifying the shawn ect patient and procedure. The patient's procedural site was prepped and draped in the usual fashion. Local anesthetic was given subcutaneously to right groin region with Lidocaine 2%. Using a modified Seldinger technique, arterial access was obtained via the right femoral artery, a 4Fr sheath was inse rted. Left Coronary Artery selective angiography was performed in multiple views using a 4 Fr. JL5 c atheter. Right Coronary Artery selective angiography was then performed in multiple views using a 4 F r. 3DRC catheter. Left Ventriculography was performed in RSUSELL projection using a 4 Fr. Pigtail cathete rThe images were reviewed and options discussed. A decision was then made to proceed with an Intervention, IVUS or other adjunct procedure. Arterial sheath was exchanged for a 6 Fr x 55cm Sheath. EBU 3.75 Guide catheter was inserted and engaged into the LCA. BMW Guide wire was advanced to the LAD. 2 x 12 EMERGE Balloon catheter was adva nced across lesion in the LAD, distal. Angiogram performed pre balloon dilatation. PTCA balloon infla yaniv at 8 atms for 10 secs. PTCA balloon inflated at 10 atms for 10 secs. Balloon catheter was advance d across lesion in the LAD, mid. PTCA balloon inflated at 10 atms for 10 secs. Balloon catheter was a dvanced across lesion in the LAD, proximal. PTCA balloon inflated at 10 atms for 12 secs. PTCA balloo n inflated at 12 atms for 14 secs. 2.25 X 38 SYNERGY Drug Eluting stent was advanced across the lesio n in the LAD, distal and LAD mid. Drug Eluting stent was advanced across the lesion in the LAD, proxi mal. Angiogram performed post stent deployment. 3 x 12 NC EMERGE Balloon catheter was inserted post s tent. Angiogram performed post balloon dilatation. 3.5 x 8 NC Emerge Balloon catheter was inserted post stent. Angiogram performed post balloon dilatation. Contrast was injected through the s debra and the Right Iliac and Femoral artery were assessed for possible closure device. The arterial sheath was pulled and a Mynx closure device was deployed for hemostasis CORONARY ANGIOGRAPHY DOMINANCE: Right Dominant LEFT HEART ASSESSMENT Left Ventricular Ejection Fraction: by LV Gram 75 % Normal Left Ventricular systolic function Normal Left Ventricular End Diastolic Pressure LVEDP: 8 mmHg Normal LV wall motion LEFT MAIN: Non-obstructive LEFT ANTERIOR DESCENDING ARTERY: PROX LAD: 85 % Stenosis, Mild calcification MID LAD: 75 % Stenosis DISTAL LAD: 85 % Stenosis CIRCUMFLEX ARTERY: MID CIRC: Moderate luminal irregularities up to 50% RIGHT CORONARY ARTERY: MID RCA: 50 % Stenosis INTERVENTION INFORMATION LESION SITE: LAD (Distal) Lesion Complexity: High/C, lesion at bifurcation: No, thrombus present: No, lesion length: 38 mm, cul prit lesion: No Pre Stenosis: 85 % Pre intervention KENDELL flow: 3 PROCEDURE: Drug Eluting Stent with pre and post dilatation Post Stenosis: 0 % Post intervention KENDELL flow: 3 Lesion Devices: [place] .014 BMW [place] Straight 190cm Tho Sci EMERGE MR 2.00x12 BALLOON Medtronic 6 Fr EBU3.75 100cm Guide Catheter Tho Sci Synergy MR HUDSON 2.25x38 Tho Sci NC EMERGE MR 3.00x12 BALLOON LESION SITE: LAD (Proximal) Lesion Complexity: High/C, lesion at bifurcation: No, thrombus present: No, lesion length: 38 mm, cul prit lesion: Yes Pre Stenosis: 85 % Pre intervention KENDELL flow: 3 PROCEDURE: Drug Eluting Stent with pre and post dilatation Post Stenosis: 0 % Post intervention KENDELL flow: 3 Lesion Devices: [place] .014 BMW [place] Straight 190cm Medtronic 6 Fr EBU3.75 100cm Guide Catheter Tho Sci Synergy MR HUDSON 2.25x38 Tho Sci NC EMERGE MR 3.00x12 BALLOON Lesion Devices: Pharmacy 500ml Heparin Flush Medtronic 6 Fr EBU3.75 100cm Guide Catheter Tho Sci Synergy MR HUDSON 2.50x38 Tho Sci NC EMERGE MR 3.00x12 BALLOON Tho Sci NC EMERGE MR 3.50x08 BALLOON COMPLICATIONS No Complications PROCEDURE MEDICATIONS Oxygen: 2 L/min via nasal cannula Brilinta 90 mg PO @ 01/12/2019 08:31:19 Heparin 6000 unit(s) IV 01/12/2019 07:53:51 Nitro 200 mcg IC 01/12/2019 07:55:56 Nitro 200 mcg IC 01/12/2019 07:55:56 IV Bolus: .9 NaCl 700 ml total 01/12/2019 08:44:00 IV Fluids: .9 NaCl increased to WO ml/hr 01/12/2019 07:51:33 SUMMARY OF HEMODYNAMIC DATA Time AIR REST ECG 07:19:59 AO 146/59 (88) SA 07:42:35 LV 165/-8, 30 07:49:41 LV 162/-5, 32 07:49:46 LVp 162/-8, 30 07:49:52 AOp 159/58 (97) 07:49:57 Signed By Alex Fernández MD On 01/12/2019 8:56:14 AM Alex Fernández MD
--- NOTE | 2019-01-12 08:58 | EKG12_ITS ---
Test Reason : CP ADMISSION Blood Pressure : / mmHG Vent. Rate : 074 BPM Atrial Rate : 074 BPM P-R Int : 170 ms QRS Dur : 092 ms QT Int : 430 ms P-R-T Axes : 064 047 135 degrees QTc Int : 477 ms Normal sinus rhythm ST & T wave abnormality, consider anterolateral ischemia Prolonged QT Abnormal ECG No previous ECGs available Confirmed by MALGORZATA MILIAN, NENO ([id number]), art editor JIMMY LOAIZA ([id number]) on 01/16/2019 10:03:16 AM Referred By: Darya Dobbins Confirmed By:NENO MCGARRY MD
[2019-01-12] MEDS: 0.9% Normal Saline 1,000 ML 150 ML IV (09:10)
--- NOTE | 2019-01-12 10:00 | EKG12_ITS ---
Test Reason : AM EKG Blood Pressure : / mmHG Vent. Rate : 068 BPM Atrial Rate : 068 BPM P-R Int : 174 ms QRS Dur : 096 ms QT Int : 468 ms P-R-T Axes : 066 052 126 degrees QTc Int : 497 ms Sinus rhythm with Premature atrial complexes ST & T wave abnormality, consider anterolateral ischemia Prolonged QT Abnormal ECG Confirmed by MALGORZATA MILIAN, NENO ([id number]), school photograph editor SANDRA AMOS ([id number]) on 01/23/2019 12:04:12 PM Referred By: Darya Dobbins Confirmed By:NENO MCGARRY MD
--- NOTE | 2019-01-12 10:43 | PN_ITS ---
Patient Problems: Active and Suspected Problems History of hypertension (Acute) History of hypercholesterolemia (Acute) History of diabetes mellitus, type II (Acute) Exertional chest pain (Acute) Abnormal EKG (Acute) Subjective: Patient seen and examined. He has no complaints and feels well. Review of systems otherwise negative. He status post cardiac cath with successful stenting of the proximal, mid and distal LAD. Labs and vitals reviewed. Vitals/I&O's: Vital Signs Temp Pulse Resp BP Pulse Ox 97.0 F L 56 L 16 134/60 H 97 01/12/19 09:00 01/12/19 10:30 01/12/19 10:30 01/12/19 10:30 01/12/19 10:30 Oxygen Flow Rate (L/min) 2 Oxygen Delivery Method Room Air Weight: 263 lb 0.183 oz Body Mass Index (BMI) 34.7 Intake and Output for Last 24 Hours 01/10/19 01/11/19 01/12/19 23:59 23:59 23:59 Intake Total 240 / 240 0 / 0 Balance 240 / 240 0 / 0 General: Alert, Oriented x3, Cooperative, No apparent distress HEENT: Atraumatic, PERRLA, EOMI, Normocephalic Oral: Moist Mucosa Neck: Supple, No JVD, Negative Carotid Bruits Lungs: Clear to auscultation, Normal air movement, No rhonchi, No wheeze, No ral es Cardiovascular: mild bradycardia, Regular Rhythm, Normal S1, Normal S2, No murmurs Abdomen: Bowel Sounds Present, Soft, Non Tender, Non-Distended, No Hepato- splenomegaly Extremities: No clubbing, No cyanosis, No edema, Capillary Refill Less than 3 Seconds Skin: No rashes, No breakdown Musculoskeletal: No Tenderness to Palpation of Joints or Extremities Lymphatic: No Cervical, Supraclavicular, or Inguinal Adenopathy Neurological: Cranial nerves II-XII grossly intact, Neuro grossly intact, Motor Exam 5/5 strength throughout Psych/Mental Status: Normal Affect, Appropriate, Alert and oriented to time, place, person, mood and affect Laboratory Results 01/11/19 11:28: WBC 7.7, RBC 4.56 L, Hgb 14.6, Hct 43.3, MCV 95.0 H, MCH 32.0, MCHC 33.7, RDW Std Deviation 43.7, RDW Coeff of Genesis 12.5, Plt Count 215, MPV 10.8, Immature Gran % (Auto) 0.300, Neut % (Auto) 55.1, Lymph % (Auto) 32.2, Jackson % (Auto) 10.0, Eos % (Auto) 1.6, Baso % (Auto) 0.8, Absolute Neuts (auto) 4.3, Absolute Lymphs (auto) 2.48, Nucleated RBC % 0 01/11/19 11:28: Sodium 139, Potassium 4.2, Chloride 103, Carbon Dioxide 28.0, Anion Gap 8, BUN 16, Creatinine 1.12, Estim Creat Clear Calc 55.49, Est GFR (MDRD) Af Amer 80, Est GFR (MDRD) Non-Af 66, BUN/Creatinine Ratio 14.3, Glucose 176 H, Calcium 9.1, Troponin I < 0.015 01/11/19 11:28: Triglycerides 223 H, Cholesterol 188, LDL Cholesterol 104, VLDL Cholesterol 45 H, HDL Cholesterol 39 L 01/11/19 11:28: Hemoglobin A1c 7.6 H 01/11/19 15:16: Troponin I < 0.015 01/11/19 16:53: POC Glucose 197 H 01/11/19 17:08: Troponin I < 0.015 01/11/19 22:01: POC Glucose 147 H 01/12/19 03:22: WBC 9.3, RBC 4.53 L, Hgb 14.5, Hct 42.6, MCV 94.0, MCH 32.0, MCHC 34.0, RDW Std Deviation 42.6, RDW Coeff of Genesis 12.4, Plt Count 211, MPV 10.4, Immature Gran % (Auto) 0.500, Neut % (Auto) 57.2, Lymph % (Auto) 28.4, Jackson % (Auto) 11.4 H, Eos % (Auto) 1.7, Baso % (Auto) 0.8, Absolute Neuts (auto) 5.3, Absolute Lymphs (auto) 2.64, Nucleated RBC % 0 01/12/19 03:22: Sodium 137, Potassium 4.4, Chloride 102, Carbon Dioxide 27.0, Anion Gap 8, BUN 15, Creatinine 1.13, Estim Creat Clear Calc 55.00, Est GFR (MDRD) Af Amer 80, Est GFR (MDRD) Non-Af 66, BUN/Creatinine Ratio 13.3, Glucose 174 H, Calcium 9.0 01/12/19 03:22: Troponin I < 0.015 01/12/19 06:16: POC Glucose 190 H 01/12/19 08:25: Activated Clotting Time 180 H Diagnostic Data Chest X-Ray 01/11/19 10:42 IMPRESSION: Moderate cardiomegaly. No acute abnormality is seen. Electronically Signed: Jese Sweetie, at 11:03 EST , Service support , Current Medications Acetaminophen (Tylenol) 650 mg PO Q6H PRN PRN PRN Reason: Pain Score 1-3/10 Hydrocodone Bitart/Acetaminophen ([place] 5mg-325mg) 1 - 2 tablet PO Q4H PRN PRN PRN Reason: Pain Score 4-10/10 Last Admin: 01/12/19 04:45 Dose: 1 tablet Documented by: Albuterol Sulfate (Ventolin Aerosols) 2.5 mg INHALATION Q2H PRN PRN PRN Reason: dyspnea, wheezing Aspirin (Ecotrin) 81 mg PO DAILY@0800 DONYA Atorvastatin Calcium (Lipitor) 40 mg PO QHS [facility] Last Admin: 01/11/19 22:03 Dose: 40 mg Documented by: Atropine Sulfate () 0.5 mg IV UD PRN PRN Reason: HR <50 bpm Dextrose (D50w Syringe) 0 gm IV X1 PRN; Protocol PRN Reason: Hypoglycemia Glucagon () 1 mg IM .X1 PRN PRN Reason: Hypoglycemia Heparin Sodium (Beef Lung) (Heparin 500 Unit/5 Ml (100/Ml)) 500 unit IV UD PRN PRN Reason: HEPARIN FLUSH Hydralazine HCl (Apresoline Iv) 10 mg IV Q4H PRN PRN PRN Reason: SBP > 160 Hydrochlorothiazide () 12.5 mg PO DAILY DONYA Sodium Chloride () 1,000 mls @ 0 mls/hr IV .Q0M [facility] Last Infusion: 01/12/19 06:18 Dose: 0 mls/hr Documented by: Sodium Chloride () 1,000 mls @ 150 mls/hr IV .Q6H40M [facility] Stop: 01/12/19 15:37 Insulin Human Lispro (Humalog Kwikpen (Bkc)) 0 unit SC ACHS [facility]; Protocol Last Admin: 01/11/19 22:02 Dose: Not Given Documented by: Labetalol HCl (Trandate) 5 mg IV X1 PRN PRN Reason: SBP > 160 when pulling sheath Lisinopril (Zestril) 20 mg PO DAILY [facility] Last Admin: 01/12/19 06:20 Dose: 20 mg Documented by: Lorazepam (Ativan) 1 mg PO Q6H PRN PRN PRN Reason: BACK SPASMS/ANXIETY Metoprolol Tartrate (Lopressor (Beta Candi)) 25 mg PO BID [facility] Last Admin: 01/12/19 06:19 Dose: 25 mg Documented by: Morphine Sulfate () 1 - 2 mg IV Q4H PRN PRN PRN Reason: Pain Score 1-10/10 Last Admin: 01/12/19 03:11 Dose: 2 mg Documented by: Sodium Chloride () 10 - 40 ml IV UD PRN PRN Reason: SALINE FLUSH Last Admin: 01/12/19 06:25 Dose: 10 ml Documented by: Sodium Chloride () 500 ml IV BOLUS PRN PRN Reason: VASO-VAGAL PROTOCOL Ticagrelor (Brilinta) 90 mg PO BID [facility] STROKE Vital Signs/Narrative: Vital Signs Temp Pulse Resp BP Pulse Ox 01/12/19 10:30 56 L 16 134/60 H 97 01/12/19 10:00 60 18 144/69 H 99 01/12/19 09:45 60 18 139/75 H 97 01/12/19 09:29 57 L 16 126/61 H 95 01/12/19 09:15 57 L 15 146/61 H 96 01/12/19 09:00 97.0 F L 60 14 132/75 H 96 01/12/19 07:02 67 Medical Necessity - Tobacco Use Smoking Status: Former smoker Assessment/Plan All Active Problems History of hypertension (Acute) History of hypercholesterolemia (Acute) History of diabetes mellitus, type II (Acute) Exertional chest pain (Acute) Abnormal EKG (Acute) 83-year-old admitted with complaint of chest pain 1. Unstable angina * s/p cardiac cath with placement of HUDSON in proximal, mid and distal LAD * on aspirin, statin and brilinta * cardiology on board * will benefit from outpatient cardiac rehab * 2. Hyperlipidemia * Lipid panel showed triglycerides of 223 and total cholesterol of 188 with LDL of 104 and HDL of 39. on high intensity statin 3. Hypertension * fairly controlled. On lisinopril. 4. Type 2 diabetes mellitus: * A1c 7.6. metformin on hold. * To resume in 48 hours time due to administration contrast dye. * Insulin sliding scale. * Accu-Cheks before meals at bedtime. DVT Prophylaxis: Lovenox Code Status: Full code Disposition: for dc home tomorrow Code Visit OBSV E&M: 32092 Subsequent observation care L2
[2019-01-12 12:05] LABS: Bedside Glucose 143 mg/dL (70-110)
--- NOTE | 2019-01-12 13:22 | CASEMGMT ---
TONI SANTILLAN Note: Intro role of CM to patient and [facility]CH[employer] form explained re: Observation status for treatment of chest pain/PCI. Explained hospitalization will be paid per? [facility] insurance policy for Outpatient billing?and condition will continue to be evaluated for Inpt necessity. Also let pt know that [facility] sends paper in the billing packet with their phone number if questions arise. Discussed Pharmacy section of [facility]CH[employer] form and self administered medication guideline.? Pt verbalizes understanding and does not have further questions. Form signed and placed in chart, copy to pt. IVANIA MUÑOZ BSN CM
[2019-01-12] MEDS: hydroCHLOROthiazide 12.5mg 12.5 MG PO (15:41)
[2019-01-12 18:05] LABS: Bedside Glucose 145 mg/dL (70-110)
[2019-01-12] MEDS: Insulin Lispro 100 UNIT/ML INSULN.PEN SC (21:00)
[2019-01-12] MEDS: TICAGRELOR 90 MG TABLET PO (21:00)
[2019-01-12] MEDS: Atorvastatin Calcium 40 MG Tablet PO (21:01)
[2019-01-12 21:11] LABS: Bedside Glucose 195 mg/dL (70-110)
[2019-01-13] VITALS (14 sets, daily range): BP systolic 101–156; BP diastolic 51–67; PULSE 55–85; RESP 14–20; TEMP 36.2–36.9; O2SAT 90–97; BMI 34.8
[2019-01-13 04:14] LABS: Hematocrit 44.7 % (40-54); Hemoglobin 15.2 g/dL (13.0-16.5); Mean Corpuscular Hgb 32.1 pg (27.0-32.0); Mean Corpuscular Volume 94.3 fL (80-94); Mean Platelet Vol. 10.6 fl (6.2-12.0); Platelet Count 221 K/mm3 (150-450); RBC Distribution Width CV 12.5 % (11.6-14.6); RBC Distribution Width SD 43.4 fl (35.1-43.9); Red Blood Count 4.74 M/mm3 (4.6-6.2); White Blood Count 11.4 K/mm3 (4.4-11.0)
[2019-01-13 04:35] LABS: AST(SGOT) 25 U/L (15-37); Alanine Aminotransfer ALT/SGPT 29 U/L (16-61); Albumin, Serum 3.8 g/dL (3.2-5.0); Alkaline Phosphatase 67 U/L (45-117); Anion Gap 9 (5-15); BUN 17 mg/dL (7-18); BUN/Creat Ratio 13.8 RATIO (10-20); Chloride 101 mmol/L (98-107); Creatinine, Serum 1.23 mg/dL (0.70-1.30); EST Glomerular Filtration Rate 60 mL/min (>60); Est Glom Filt Rate - Afr Amer 72 mL/min (>60); Estimated Creatinine Clearance 50.52 ml/min; Globulin 3.7 g/dL (2.2-4.2); Glucose 171 mg/dL (74-106); Potassium 3.7 mmol/L (3.5-5.1); Protein, Total 7.5 g/dL (6.4-8.2); Sodium Level 137 mmol/L (136-145)
[2019-01-13] MEDS: Insulin Lispro 100 UNIT/ML INSULN.PEN SC (08:02)
[2019-01-13] MEDS: Aspirin E.C. 81 MG Tablet PO (08:03)
[2019-01-13 08:11] LABS: Bedside Glucose 171 mg/dL (70-110)
--- NOTE | 2019-01-13 08:12 | PN.CARD_ITS ---
Subjectve: Patient feels much better this morning, no 24-hour events. Telemetry negative. EKG shows normal sinus rhythm with resolving anterior T wave inversion. Right groin is clean/dry/intact. Hemoglobin and creatinine within nominal limits. Objective: Vital Signs Temp Pulse Resp BP Pulse Ox 97.2 F L 71 15 142/56 H 96 01/13/19 08:00 01/13/19 08:00 01/13/19 08:00 01/13/19 08:00 01/13/19 08:00 Oxygen Flow Rate (L/min) 2 Oxygen Delivery Method Room Air Weight: 263 lb 0.183 oz Body Mass Index (BMI) 34.7 Intake and Output for Last 24 Hours 01/11/19 01/12/19 01/13/19 23:59 23:59 23:59 Intake Total 240 / 240 1400 / 1500 100 / 100 Output Total 900 / 1450 550 / 550 Balance 240 / 240 500 / 50 -450 / -450 General: Awake, Alert, Oriented x 3 HEENT: PERRL, EOMI, Sclera Non Icteric Neck: Supple, Good ROM, No Lymph Node Enlargement Lungs: Clear to auscultation Cardiovascular: Regular Rhythm, Normal S1, Normal S2, No Murmurs, No Rubs, No Gallops Vascular: No Carotid Bruits, Normal Femoral Pulses, Normal Radial Pulses, Normal Dorsalis Pedal Pulse, Normal Posterior Tibial Pulses Abdomen: Bowel Sounds Present, Soft, Non Tender, No HSM, No Organomegaly Extremities: No Cyanosis, No Clubbing, No edema Neurological: No Focal Motor or Sensory Deficit 01/13/19 03:50: WBC 11.4 H, RBC 4.74, Hgb 15.2, Hct 44.7, MCV 94.3 H, MCH 32.1 H , MCHC 34.0, Plt Count 221, MPV 10.6 01/13/19 03:50: Sodium 137, Potassium 3.7, Chloride 101, Carbon Dioxide 27.0, Anion Gap 9, BUN 17, Creatinine 1.23, Est GFR (MDRD) Af Amer 72, Est GFR (MDRD) Non-Af 60, BUN/Creatinine Ratio 13.8, Glucose 171 H, Calcium 9.0, Total Bilirubin 1.10 H Rhythm: EKG: ECHO: Pending Stress Test: Cardiac Cath: Significant LAD stenosis, status post angioplasty and drug-eluting stenting x2 to the LAD, nonobstructive disease of his left circumflex, and a possibly significant mid right coronary artery stenosis. PCI: CT Surgery: Holter monitor: EPS: PPM: CXR: Chest CT Scan: Medical Necessity - Tobacco Use Smoking Status: Former smoker Assessment/Plan 1. Unstable angina: Patient presents with new onset anginal symptoms over the last 2 weeks with associated dyspnea on exertion, shortness of breath, and fat igue over the last 6 months. Patient has several risk factors for coronary occlusive disease including his age, peripheral vascular disease, diabetes, former smoker, hypertension hypercholesterolemia. His EKG on presentation showed normal sinus rhythm with anterior T wave inversions. His chest pain was relieved with a single sublingual nitroglycerin. Patient underwent cardiac catheterization on 01/12/2019 which showed significant diffuse disease throughout the entirety of his LAD, nonobstructive disease of his left circumflex, and a possibly significant mid right coronary artery stenosis. The patient had drug-eluting stenting x2 to the LAD, and medical management of his remaining coronaries. I recommended that he undergo a treadmill echocardiogram in 2 weeks time to evaluate for inferior ischemia and if this is abnormal, he may require intervention of his mid right coronary artery stenosis. The meantime he will continue baby aspirin, Brilinta, hydrochlorothiazide, lisinopril and metoprolol. 2D echo Doppler demonstrates moderate LVH, hyperdynamic LV function with an EF of 75%, severe left atrial enlargement, and mild pulmonary hypertension with an RVSP of 39 mmHg. 2. Hyperlipidemia: The patient's LDL is 104 and HDL is 39. Recommend increasing his Lipitor to 40 mg p.o. nightly and repeating lipid profile in 6 weeks time. 3. Peripheral vascular disease: Patient may benefit from long-term dual anti platelet therapy given his history of carotid disease. He is status post left CEA in 2017. 4. Thank you very much for the opportunity to participate in the cardiac care of your patient. He may be discharged home today and follow-up with Dr. Fernández going forward. Code Visit Inpatient E&M: 51948 Subs Hosp L2
--- NOTE | 2019-01-13 08:43 | CRPHASE1_ITS ---
Patient Communication PHII Cardiac Rehab Discussed with Patient:: Yes Guide to Cardiac Rehab Given to Patient:: Yes Cardiac Rehab Facility Choice List Given to Patient:: Yes - [facility] Choice Program [facility] CR PHII:: Communication Given to CR Invertebrate Paleontologist:: Alex Fernández PCP:: Carson Stone Sessions:: 36 sessions - 3 days/wk, 12 weeks Risk Factors/Lifestyle Smoking Status: Former smoker Hx Hypertension: Yes Hx Diabetes Mellitus Type 2: Yes - ON METFORMIN Hx Metabolic Disorders: Yes Hx Dyslipidemia: Yes Hx Obesity: Yes Height: 1.85 m Weight:: 119.3 kg BMI: 34.8 ETOH: No Caffeine: Yes Substance Abuse: No Risk Factor for Sedentary Lifestyle: Lowest Risk Past Cardiac Illness: Previous PCI w/Stent Laboratory Values: Cardiac Rehab Phase I Labs Hemoglobin A1c 7.6 % (4.2-6.3) H 01/11/19 11:28 Triglycerides 223 mg/dL (-199) H 01/11/19 11:28 Cholesterol 188 mg/dL (200) 01/11/19 11:28 LDL Cholesterol 104 mg/dL (0-130) 01/11/19 11:28 HDL Cholesterol 39 mg/dL (40-) L 01/11/19 11:28 Phase I Education Given On:: [place], Nutrition, Antiplatelet medication, CHF, Smoking cessation, Diabetes - Type II Issues Affecting Care:: None Knowledge of Condition:: Yes Learning Preferences: Verbal Hospital Course Pain Description: Crushing Cardiac Cath Date:: 01/12/19 Medical/Surgical History [place]:: No Angina:: Yes Pulmonary:: Yes Diabetes Type II:: Yes Hypertension:: Yes Dyslipidemia:: Yes PTCA:: Yes Discharge/Home/Social Eval Discharge Disposition: Home Cardiac Rehabilitation Info Cardiac Rehabilitation Program Information: Cardiac Rehabilitation is important for patients like you who are recovering from a heart problem. Cardiac rehabilitation programs are recognized as integral to the continued care of the patient with coronary heart disease. The cardiac rehabilitation program is designed to optimize a patient's physical, psychological, and social functioning. Health client care specialist work in cardiac rehabilitation programs and assist you with getting the treatments you need to get stronger and healthier - like exercise, healthy eating habits, and medications. Cardiac rehabilitation has been show to help people with heart problems live longer and have better life enjoyment than people who do not go to cardiac rehabilitation. Please contact the Cardiac Rehabilitation Program at [facility] at in two weeks if you have not heard from them.
--- NOTE | 2019-01-13 08:47 | CRPH1.INSTRU ---
General Education CAD and cardiac anatomy and function:: Patient communicates acknowledgment Explanation of diagnoses and procedures:: Patient communicates acknowledgment Sign/Symptoms of AL:: Not instructed Antiplatelet therapy: Not instructed Proper use of NTG-SL: Not instructed Emergency procedures and activation of EMS: Not instructed Compliance of all prescribed medications: Not instructed Smoking Patient Nicotine/Smoking Risk Factors Are:: Non-smoker Nicotine/Smoking Response Code:: Patient communicates acknowledgment Dyslipidemia Patient Dyslipidemia Risk Factors Are:: Total Cholesterol - 188, Triglycerides - 233, HDL - 39, LDL - 104 Dyslipidemia Response Code:: Patient communicates acknowledgment Overweight/Obesity Patient Overweight/Obesity Risk Factors Are:: Obesity - > or = 30 Overweight/Obesity:: Patient communicates acknowledgment Hypertension Recommendations Include:: Maintain BP <130/85, BP <130/80 if diabetic, DASH dietary guidelines, Decrease/maintain normal body weight Heart Disease Patient Heart Disease Risk Factors Are:: Previous cardiac event Heart Disease Response Code:: Patient communicates acknowledgment Diabetes Recommendations Include:: Maintain fasting blood sugars 70-110 md/dL, Maintain HgbA1c of 6% or less, Monitor blood sugar as prescribed, Diabetic dietary guidelines, Decrease/maintain body weight Diabetes:: Patient communicates acknowledgment Metabolic Syndrome Patient Metabolic Syndrome Risk Factors Are [3 of 5]:: Fasting blood sugar > 100 mg/dL, Waist circumference > 35 [female] or 40 [male], High triglyceride >150, Hypertension, Low HDL <40 [male] or < 50 [female] Metabolic Syndrome Response Code:: Patient communicates acknowledgment Sedentary Sedentary Response Code:: Patient communicates acknowledgment Stress Stress Response Code:: Patient communicates acknowledgment
--- NOTE | 2019-01-13 08:58 | EKG12_ITS ---
Test Reason : POST PCI Blood Pressure : / mmHG Vent. Rate : 063 BPM Atrial Rate : 063 BPM P-R Int : 172 ms QRS Dur : 094 ms QT Int : 482 ms P-R-T Axes : 071 060 114 degrees QTc Int : 493 ms Normal sinus rhythm ST & T wave abnormality, consider anterolateral ischemia Prolonged QT Confirmed by MALGORZATA MILIAN, NENO ([id number]), industrial editor SANDRA AMOS ([id number]) on 01/23/2019 12:58:33 PM Referred By: Darya Dobbins Confirmed By:NENO MCGARRY MD
--- NOTE | 2019-01-13 09:17 | PCM.DC ---
- Discharge Diagnoses Current Active Problems: Current Active and Chronic Problems (Last Updated 01/12/19 @ 14:14 by Yuni Womack) Atherosclerosis of coronary artery of [place] heart without angina pectoris (Chronic) Successful PTCA/HUDSON mid/distal LAD with a 2.25 x 38 Promus Synergy, post dilated in the proximal 1/3 with a 2.5 x 12 NC balloon, 85%-->0%, no dissection. Successful PTCA/HUDSON proximal/mid LAD using a 2.5 x 38 Promus Synergy, post dilated with a 2.5, 3.0 and 3.5 x 8 NC balloon at various locations due to ectactic nature of vessel to insure proper stent apposition, 85%-->0%, no dissection. Stented coronary artery (Chronic 01/12/19) Successful PTCA/HUDSON mid/distal LAD with a 2.25 x 38 Promus Synergy, post dilated in the proximal 1/3 with a 2.5 x 12 NC balloon, 85%-->0%, no dissection. Successful PTCA/HUDSON proximal/mid LAD using a 2.5 x 38 Promus Synergy, post dilated with a 2.5, 3.0 and 3.5 x 8 NC balloon at various locations due to ectactic nature of vessel to insure proper stent apposition, 85%-->0%, no dissection. 01/12/2019 History of hypertension (Acute) History of hypercholesterolemia (Acute) History of diabetes mellitus, type II (Acute) Exertional chest pain (Acute) Abnormal EKG (Acute) You will use the following diet at home:: Cardiac Your food should be the consistency of: Regular Discharge Activity: Return to Normal Activity Weight Bearing Status: Weight bearing as tolerated Call your doctor if you observe: Shortness of breath, Dizziness, Chest pain Instructions: Angina, Recognizing a Heart Attack or Angina Allergies/Adverse Reactions: Allergies No Known Allergies Allergy (Verified 01/11/19 10:23) Medications to take at Discharge Aspirin 81 mg PO QHS 01/11/19 Metformin HCl 500 mg PO BID 01/11/19 [place]-3 Fatty Acids/Fish Oil [Fish Oil 1,000 mg Capsule] 1 ea PO DAILY 01/11/19 Quinapril HCl 10 mg PO DAILY 01/11/19 Atorvastatin Calcium [Lipitor] 40 mg PO QHS #30 tab 01/13/19 Metoprolol Tartrate [Lopressor (beta santos)] 25 mg PO BID #60 tab 01/13/19 Ticagrelor [Brilinta] 90 mg PO BID #60 tab 01/13/19 hydroCHLOROthiazide [Hydrochlorothiazide] 12.5 mg PO DAILY #30 cap 01/13/19 The following prescriptions were given: Ticagrelor [Brilinta] 90 mg PO BID #60 tab Transmission Status: Pending to [facility] hydroCHLOROthiazide [Hydrochlorothiazide] 12.5 mg PO DAILY #30 cap Transmission Status: [facility] Atorvastatin Calcium [Lipitor] 40 mg PO QHS #30 tab Transmission Status: [facility] Metoprolol Tartrate [Lopressor (beta santos)] 25 mg PO BID #60 tab Transmission Status: Pending to [facility] Orders to be completed after discharge: Phase II, Outpatient Cardiac Rehab Location: None Selected Primary Care Physician: Carson Stone MD [Primary Care Provider] - Please follow up with your Primary Care Physician in: one week Test Results: Test results from this visit will be discussed in further detail at your follow-up appointment, if applicable. Please Follow Up With: Alex Fernández MD When: 2-3 weeks; please call office for appointment Proposed Discharge Date: 01/13/19
--- NOTE | 2019-01-13 09:19 | PCM.DC.SUM ---
Discharge Date and Diagnosis Date of Admission: 01/11/19 Date of Discharge: 01/13/19 - Primary Discharge Diagnosis Active and Suspected Problems (Last Updated 01/12/19 @ 14:14 by Yuni Womack) History of hypertension (Acute) History of hypercholesterolemia (Acute) History of diabetes mellitus, type II (Acute) Exertional chest pain (Acute) Abnormal EKG (Acute) unstable angina - Secondary Discharge Diagnosis Chronic Problems (Last Updated 01/12/19 @ 14:13 by Yuni Womack) Atherosclerosis of coronary artery of [place] heart without angina pectoris (Chronic) Successful PTCA/HUDSON mid/distal LAD with a 2.25 x 38 Promus Synergy, post dilated in the proximal 1/3 with a 2.5 x 12 NC balloon, 85%-->0%, no dissection. Successful PTCA/HUDSON proximal/mid LAD using a 2.5 x 38 Promus Synergy, post dilated with a 2.5, 3.0 and 3.5 x 8 NC balloon at various locations due to ectactic nature of vessel to insure proper stent apposition, 85%-->0%, no dissection. Stented coronary artery (Chronic 01/12/19) Successful PTCA/HUDSON mid/distal LAD with a 2.25 x 38 Promus Synergy, post dilated in the proximal 1/3 with a 2.5 x 12 NC balloon, 85%-->0%, no dissection. Successful PTCA/HUDSON proximal/mid LAD using a 2.5 x 38 Promus Synergy, post dilated with a 2.5, 3.0 and 3.5 x 8 NC balloon at various locations due to ectactic nature of vessel to insure proper stent apposition, 85%-->0%, no dissection. 01/12/2019 Hospital Course and Treatment Imaging Results: Diagnostic Data Chest X-Ray 01/11/19 10:42 IMPRESSION: Moderate cardiomegaly. No acute abnormality is seen. Electronically Signed: Jese Pitt, at 11:03 EST , Service support , Interpretation Summary Moderate concentric left ventricular hypertrophy. The estimated ejection fraction is 75 %. Stage 1 diastolic dysfunction. The left atrium is severely enlarged. Trivial mitral valve insufficiency. Mild (1+) tricuspid valve insufficiency. Right ventricular systolic pressure estimated to be 39 mmHg. Mild pulmonary hypertension. Compared to echo report dated 04/09/2016, no appreciable changes noted. The study was technically difficult. Contrast injection was performed. cardiology- Dr Fernández Operations: None Procedures: Cardiac catheterization Summary of Care Provided: The patient is a 83 year old M with a PMH as outlined chrissy. He was admitted through the ED on 01/11/19 with a complaint of chest pain which started a day prior to admission. Chest pain was retrosternal, pressure like, exacerbated by activity and relieved by rest. He had associated shortness of breath which was also exacerbated by activity and relieved by rest. He denied any headache, palpitations, blurred vision, lightheadedness or dizziness. Review of systems was otherwise negative. Initial troponin was negative and CBC was unremarkable. BMP was also unremarkable. Initial EKG did showed T wave inversions in the anterior lateral leads. He was admitted to be managed for chest pain to rule out ACS. Troponins x3 were negative. However EKG showed T wave inversions in anterolateral leads and cardiology was consulted. 2D echo done showed EF of 75% with stage I diastolic dysfunction and severely enlarged left atrium. RVSP was estimated to be 39 mmHg. Patient had a cardiac cath on 01/12/2019 which showed single-vessel coronary artery disease of the proximal, mid and distal LAD with blockage of about 85%. He had successful PTCA and drug-eluting stent placements in the proximal, mid and distal LAD. He was transferred to the ICU after procedure for closer monitoring. Patient remained stable. He was started on high intensity statin, as well as aspirin, and Brilinta. Patient remained stable and was discharged home on 01/13/2019. 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 He was also discharged with a prescription for p.o. metoprolol plus hydrochlorothiazide to keep his blood pressure well controlled. Patient seen and examined. He felt well and was eager to go home. He had no complaints. Review of systems otherwise negative. Labs and vitals reviewed. Home medication reviewed and reconciled. o/e: Vital Signs Height 6 ft 0.83 in Weight: 263 lb 0.183 oz Weight in Pounds 263.0 lbs BMI 34.8 Pulse Ox 97 Temperature 97.5 F Pulse Rate 85 Respiratory Rate 18 Blood Pressure [2nd BP] 104/63 Blood Pressure 122/54 Blood Pressure Position [2nd Semi-Fowlers BP] Blood Pressure Position Semi-Fowlers General: Alert, Oriented x3, Cooperative, No apparent distress HEENT: Atraumatic, PERRLA, EOMI, Normocephalic Oral: Moist Mucosa Neck: Supple, No JVD, Negative Carotid Bruits Lungs: Clear to auscultation, Normal air movement, No rhonchi, No wheeze, No rales Cardiovascular: mild bradycardia, Regular Rhythm, Normal S1, Normal S2, No murmurs Abdomen: Bowel Sounds Present, Soft, Non Tender, Non-Distended, No Hepato-splenomegaly Extremities: No clubbing, No cyanosis, No edema, Capillary Refill Less than 3 Seconds Skin: No rashes, No breakdown Musculoskeletal: No Tenderness to Palpation of Joints or Extremities Lymphatic: No Cervical, Supraclavicular, or Inguinal Adenopathy Neurological: Cranial nerves II-XII grossly intact, Neuro grossly intact, Motor Exam 5/5 strength throughout Psych/Mental Status: Normal Affect, Appropriate, Alert and oriented to time, place, person, mood and affect Plan as above. - Physical Exam Vitals/I&O's: Vital Signs Temp Pulse Resp BP Pulse Ox 97.2 F L 78 18 104/63 97 01/13/19 08:00 01/13/19 09:00 01/13/19 09:00 01/13/19 09:00 01/13/19 09:00 Oxygen Flow Rate (L/min) 2 Oxygen Delivery Method Room Air Weight: 263 lb 0.183 oz Body Mass Index (BMI) 34.7 Intake and Output for Last 24 Hours 01/11/19 01/12/19 01/13/19 23:59 23:59 23:59 Intake Total 240 / 240 1400 / 1500 100 / 100 Output Total 900 / 1450 550 / 550 Balance 240 / 240 500 / 50 -450 / -450 Laboratory Results 01/12/19 12:03: POC Glucose 143 H 01/12/19 18:03: POC Glucose 145 H 01/12/19 20:58: POC Glucose 195 H 01/13/19 03:50: WBC 11.4 H, RBC 4.74, Hgb 15.2, Hct 44.7, MCV 94.3 H, MCH 32.1 H, MCHC 34.0, RDW Std Deviation 43.4, RDW Coeff of Genesis 12.5, Plt Count 221, MPV 10.6 01/13/19 03:50: Sodium 137, Potassium 3.7, Chloride 101, Carbon Dioxide 27.0, Anion Gap 9, BUN 17, Creatinine 1.23, Estim Creat Clear Calc 50.52, Est GFR (MDRD) Af Amer 72, Est GFR (MDRD) Non-Af 60, BUN/Creatinine Ratio 13.8, Glucose 171 H, Calcium 9.0, Total Bilirubin 1.10 H, AST 25, ALT 29, Alkaline Phosphatase 67, Total Protein 7.5, Albumin 3.8, Globulin 3.7, Albumin/Globulin Ratio 1.0 01/13/19 08:01: POC Glucose 171 H Current Medications Acetaminophen (Tylenol) 650 mg PO Q6H PRN PRN PRN Reason: Pain Score 1-3/10 Hydrocodone Bitart/Acetaminophen ([place] 5mg-325mg) 1 - 2 tablet PO Q4H PRN PRN PRN Reason: Pain Score 4-10/10 Last Admin: 01/12/19 04:45 Dose: 1 tablet Documented by: Albuterol Sulfate (Ventolin Aerosols) 2.5 mg INHALATION Q2H PRN PRN PRN Reason: dyspnea, wheezing Aspirin (Ecotrin) 81 mg PO DAILY@0800 [facility] Last Admin: 01/13/19 08:03 Dose: 81 mg Documented by: Atorvastatin Calcium (Lipitor) 40 mg PO QHS [facility] Last Admin: 01/12/19 21:01 Dose: 40 mg Documented by: Atropine Sulfate () 0.5 mg IV UD PRN PRN Reason: HR <50 bpm Dextrose (D50w Syringe) 0 gm IV X1 PRN; Protocol PRN Reason: Hypoglycemia Glucagon () 1 mg IM .X1 PRN PRN Reason: Hypoglycemia Heparin Sodium (Beef Lung) (Heparin 500 Unit/5 Ml (100/Ml)) 500 unit IV UD PRN PRN Reason: HEPARIN FLUSH Hydralazine HCl (Apresoline Iv) 10 mg IV Q4H PRN PRN PRN Reason: SBP > 160 Hydrochlorothiazide () 12.5 mg PO DAILY [facility] Last Admin: 01/12/19 15:41 Dose: 12.5 mg Documented by: Sodium Chloride () 1,000 mls @ 0 mls/hr IV .Q0M [facility] Last Infusion: 01/12/19 16:02 Dose: Infused Documented by: Insulin Human Lispro (Humalog Maritzapen (Bkc)) 0 unit SC ACHS [facility]; Protocol Last Admin: 01/13/19 08:02 Dose: 1 u Documented by: Labetalol HCl (Trandate) 5 mg IV X1 PRN PRN Reason: SBP > 160 when pulling sheath Lisinopril (Zestril) 20 mg PO DAILY [facility] Last Admin: 01/12/19 06:20 Dose: 20 mg Documented by: Lorazepam (Ativan) 1 mg PO Q6H PRN PRN PRN Reason: BACK SPASMS/ANXIETY Metoprolol Tartrate (Lopressor (Beta Candi)) 25 mg PO BID [facility] Last Admin: 01/12/19 21:00 Dose: 25 mg Documented by: Morphine Sulfate () 1 - 2 mg IV Q4H PRN PRN PRN Reason: Pain Score 1-10/10 Last Admin: 01/12/19 03:11 Dose: 2 mg Documented by: Sodium Chloride () 10 - 40 ml IV UD PRN PRN Reason: SALINE FLUSH Last Admin: 01/12/19 06:25 Dose: 10 ml Documented by: Sodium Chloride () 500 ml IV BOLUS PRN PRN Reason: VASO-VAGAL PROTOCOL Ticagrelor (Brilinta) 90 mg PO BID [facility] Last Admin: 01/12/19 21:00 Dose: 90 mg Documented by: Discharge Diet: Low fat/ Low Cholesterol Discharge Activity: Return to Normal Activity Weight Bearing Status: Weight bearing as tolerated Call your doctor if you observe: Shortness of breath, Dizziness, Chest pain Home Medications: Medications to take at Discharge Aspirin 81 mg PO QHS 01/11/19 Metformin HCl 500 mg PO BID 01/11/19 [place]-3 Fatty Acids/Fish Oil [Fish Oil 1,000 mg Capsule] 1 ea PO DAILY 01/11/19 Quinapril HCl 10 mg PO DAILY 01/11/19 Atorvastatin Calcium [Lipitor] 40 mg PO QHS #30 tab 01/13/19 Metoprolol Tartrate [Lopressor (beta candi)] 25 mg PO BID #60 tab 01/13/19 Ticagrelor [Brilinta] 90 mg PO BID #60 tab 11/22/19 hydroCHLOROthiazide [Hydrochlorothiazide] 12.5 mg PO DAILY #30 cap 01/13/19 Following Prescrptions Were Given to Patient: Ticagrelor [Brilinta] 90 mg PO BID #60 tab [facility]: [facility] hydroCHLOROthiazide [Hydrochlorothiazide] 12.5 mg PO DAILY #30 cap [facility] Atorvastatin Calcium [Lipitor] 40 mg PO QHS #30 tab [facility]: [facility] Metoprolol Tartrate [Lopressor (beta candi)] 25 mg PO BID #60 tab Transmission [facility]: [id number] Other Amb Orders: Phase II, Outpatient Cardiac Rehab Location: None Selected Primary Care Physician: Carson Stone MD [Primary Care Provider] - Please follow up with your Primary Care Physician in: one week Please Follow Up With: lAex Fernández MD When: 2-3 weeks; please call office for appointment Patient Instructions: Recognizing a Heart Attack or Angina, Angina Disposition: Home Minutes spent on discharge:: 40 Patient Condition:: Stable Medical Necessity - Tobacco Use Smoking Status: Former smoker Meaningful Use Info Meaningful Use Diagnoses (Choose all that apply): AMI - AMI Aspirin given w/in 24hrs of arrival?: Yes ASA at discharge?: Yes Statins at discharge?: Yes Bahman/ARB at discharge?: Yes Beta Candi at discharge?: Yes Done w/ Acute AL measure.: Yes Documented LVEF (%): 75 Code Visit OBSV E&M: 53753 Observation care discharge
[2019-01-13] MEDS: Metoprolol Tartrate 25 MG Tablet PO (09:38)
== END 2019-01-13 10:40 | disposition home or self-care (01) ==
LOC: ED 12:16 → PCU 01-12 02:54 → ICU 01-12 09:10
PROVIDERS: Family Medicine; Internal Medicine Cardiovascular Disease; Admitting Provider Student in an Organized Health Care Education/Training Program; Emergency Provider Emergency Medicine; Family Provider Family Medicine; PCP Family Medicine; Referring Provider Student in an Organized Health Care Education/Training Program; Visit Provider Student in an Organized Health Care Education/Training Program
DX: I25.110 Atherosclerotic heart disease of native coronary artery with unstable angina pectoris (principal); E11.51 Type 2 diabetes mellitus with diabetic peripheral angiopathy without gangrene; I10 Essential (primary) hypertension; I08.1 Rheumatic disorders of both mitral and tricuspid valves; Z87.891 Personal history of nicotine dependence; Z79.899 Other long term (current) drug therapy; Z79.82 Long term (current) use of aspirin; Z79.84 Long term (current) use of oral hypoglycemic drugs; E78.5 Hyperlipidemia, unspecified
CPT/HCPCS: 36415; 71045; 80048; 80053; 80061; 82962; 83036; 84484; 85025; 85027; 85347; 92928; 93005; 93306; 93458; 96361; 96372; 96374; 99218; 99285; C1760; J7030; Q9957; Q9967; A4216; C1725; C1769; C1874; C1887; C1894; C8929; C9600; G0378

== ENCOUNTER → 2019-02-06 12:34 | Outpatient (CLI) | payer MEDICARE, SELFPAY ==
[2019-01-11 13:15] VITALS: BMI 34.7
--- NOTE | 2019-02-06 12:36 | CDU_ITS ---
Reason For Study: Stenosis Rt. Velocities/BP Lt. Velocities/BP Prox CCA 87/6 cm/sec. Prox CCA 86/8 cm/sec. Mid CCA 73/8 cm/sec. Mid CCA 69/5 cm/sec. Dist CCA 50/4 cm/sec. Dist CCA 51/5 cm/sec. Prox ICA 50/6 cm/sec. Prox ICA 29/5 cm/sec. Mid ICA 94/20 cm/sec. Mid ICA 169/32 cm/sec. Dist ICA 97/17 cm/sec. Dist ICA 76/11 cm/sec. Rt. ICA/CCA = 1.3. Lt. ICA/CCA = 2.5. Prox ECA 89 cm/sec. Prox ECA 131 cm/sec. Rt. Vert. 63/11 cm/sec. Lt. Vert. 63/9 cm/sec. Right Extracranial There is heterogeneous, irregular atherosclerotic plaque noted in the right common carotid artery. There is heterogeneous, irregular atherosclerotic plaque noted in the right internal carotid artery. There is heterogeneous, smooth atherosclerotic plaque noted in the right external carotid artery. Antegrade flow is noted in the right vertebral artery. Left Extracranial There is heterogeneous, smooth atherosclerotic plaque noted in the left common carotid artery. There is intimal thickening but no significant atherosclerotic plaque noted in the left internal carotid artery. Lt ICA dives. There is intimal thickening but no significant atherosclerotic plaque noted in the left external carotid artery. Antegrade flow is noted in the left vertebral artery. Procedure Carotid Duplex 62415. Exam performed in department. Interpretation Summary Mild (<50%) stenosis right extracranial internal carotid. Moderate (50-69%) stenosis left extracranial internal carotid. Flow within the vertebral arteries is antegrade bilaterally. Ordering Physician: Eric Moyer Referring Physician: Carson Stone Performed By: Sharla Cardona, ADELA, RVT
== END ==
PROVIDERS: Family Provider Family Medicine; PCP Family Medicine; Referring Provider Surgery Vascular Surgery; Visit Provider Surgery Vascular Surgery
DX: I65.23 Occlusion and stenosis of bilateral carotid arteries (principal); E11.9 Type 2 diabetes mellitus without complications; E78.00 Pure hypercholesterolemia, unspecified; I10 Essential (primary) hypertension
CPT/HCPCS: 93880

== ENCOUNTER → 2019-02-09 06:40 | Outpatient (CLI) | payer MEDICARE, SELFPAY ==
[2019-01-11 13:15] VITALS: BMI 34.7
--- NOTE | 2019-02-10 13:05 | STRESSREP ---
Stress Test Report Date: 02/09/2019 Procedure: Exercise tolerance test/imaging study Indications: Abnormal stress test Consent: Per the patient Procedure: The patient exercised on a Yony protocol for 11 minutes and 15 seconds achieving a peak heart rate of 166 bpm (103 % predicted maximal heart rate) with a peak blood pressure 164/90 mmHg and a peak MET capacity of 13.4 METs. The baseline ECG demonstrated normal sinus rhythm. The peak exercise ECG demonstrated sinus tachycardia with about half to [address] depressions in the inferior and lateral leads. No evidence of significant ischemia. EKG during recovery revealed no evidence of significant ischemia [There were no significant cardiac dysrhythmias pretest, during exercise, or recovery]. The functional capacity was considered excellent for age []. There was [no complaint of chest discomfort during exercise or recovery]. The examination was discontinued secondary to leg fatigue. Impression: 1. Technically adequate (percent predicted maximal heart rate greater than 85%) exercise tolerance test 2. Stress test is negative for exercise-induced EKG changes of ischemia 3. The test test is negative for exercise-induced chest pain 4. Functional capacity is excellent for age 5. Nuclear images pending Myocardial perfusion imaging study: Technique: Date: 02/09/2019 Procedure: Pharmacologic stress nuclear imaging study Indications: CAD evaluation post stent Consent: Per the patient Procedure: The patient underwent pharmacologic (Regadenoson) evaluation with a peak heart rate of 131 beats per minute (96 %predicted maximal heart rate) and a peak blood pressure of 154/78 mmHg. The baseline ECG demonstrated normal sinus rhythm. EKG during lexiscan infusion revealed about half a millimeter horizontal ST depressions in the inferior and lateral leads. EKG post infusion revealed return of ST segments to baseline [There were no cardiac dysrhythmias pretest, during pharmacologic infusion, or recovery]. [There was no complaint of chest discomfort during pharmacologic infusion or recovery]. The examination was discontinued secondary to completion of protocol. Impression: 1. Lexiscan stress test test is negative for Lexiscan infusion induced EKG changes of ischemia. 2. Lexiscan stress test test is negative for Lexiscan infusion induced chest pain. 3. Results of the nuclear portion of the test is as below Myocardial perfusion imaging study: Technique: The patient was injected with 10 millicuries of technetium 99m Cardiolite and subsequently rest SPECT Cardiolite nuclear imaging was obtained in the horizontal long, vertical long, and short axis views. The patient underwent pharmacologic (Regadenoson) evaluation. Please see above for details. The patient was injected with 30 millicuries of technetium 99m Cardiolite and subsequently stress SPECT Cardiolite nuclear imaging was obtained in the horizontal long, vertical long, and short axis views. A gated Cardiolite study at peak stress was obtained. Interpretation: Rest and stress SPECT Cardiolite nuclear imaging status post realignment, normalization, and attenuation correction demonstrate mild fixed inferior defect. No significant reversibility suggestive of significant ischemia. Gated images reveal moderate global hypokinesis. The reported LVEF is 40 %. These findings are suggestive of prior inferior infarction. Impression: 1. There is no evidence of significant ischemia. Possible prior inferior myocardial infarction. 2. Estimated ejection fraction is 40%. This note was generated with [employer]ala[employer] software. It may contain incorrect words, spelling, and punctuation that were not noted in checking the note before signing.
== END ==
PROVIDERS: Family Provider Family Medicine; PCP Family Medicine; Referring Provider Internal Medicine Cardiovascular Disease; Visit Provider Internal Medicine Cardiovascular Disease
DX: I25.10 Atherosclerotic heart disease of native coronary artery without angina pectoris (principal); I42.2 Other hypertrophic cardiomyopathy; Z95.5 Presence of coronary angioplasty implant and graft
CPT/HCPCS: 78452; 93017; A9500; A4216; J2785

== ENCOUNTER → 2019-02-23 10:13 | Outpatient (CLI) | payer MEDICARE, SELFPAY ==
[2019-01-11 13:15] VITALS: BMI 34.7
[2019-01-13 08:46] VITALS: BMI 34.8
[2019-02-10 13:02] VITALS: BMI 34.2
--- NOTE | 2019-02-23 10:33 | CR.HP_ITS ---
CR - History & Physical - General Arrival date:: 02/23/19 Arrival time:: 10:30 Date of Referral:: 01/12/19 Date of CR Evaluation:: 01/12/19 Referring Physician: Dr. Alex Fernández Primary Diagnosis: PCI w/stenting - History of Present Cardiac Event Onset Date: Enter Onset Date of cardiac illnesses in Comment field below Current stable Angina Pectoris:: No Acute Myocardial Infarction within 12 months:: No PTCA or coronary stenting:: Yes - 01/12/2019 Type of Symptoms:: Soreness across the upper chest, had an EKG in the office. Interventions with present event:: admitted to hospital and had neuclear stress test and heart cath. - Medications Home Medications: Ambulatory Orders Medication Instructions Recorded Aspirin 81 mg PO QHS 01/11/19 Metformin HCl 500 mg PO BID 01/11/19 [place]-3 Fatty Acids/Fish Oil [Fish 1 ea PO DAILY 01/11/19 Oil 1,000 mg Capsule] atorvastatin 40 mg tablet 40 mg PO QHS #90 tab 02/10/19 clopidogrel 75 mg tablet 75 mg PO .COMPLEX #34 tab 02/10/19 hydrochlorothiazide 12.5 mg capsule 12.5 mg PO DAILY #90 cap 02/10/19 metoprolol tartrate 25 mg tablet 25 mg PO BID #180 tab 02/10/19 quinapril 10 mg tablet 10 mg PO DAILY #90 tab 02/10/19 - Allergies Allergies/Adverse Reactions: Allergies No Known Allergies Allergy (Verified 02/08/19 11:01) - Sleep Disorder Evaluation Hx of Sleep Apnea: No Do you snore loudly (louder than talking or can be heard through closed doors)?: Yes - not as much but still does occasionally. Do you often feel tired/ fatigued/ sleepy during daytime?: Yes Has anyone observed you stop breathing during sleep?: Yes History of Hypertension (for STOP score): Yes STOP Results: Positive Advanced Directives - Advanced Directives Power of Signalling And Communications Engineer: Yes - son David Culp is POA healthcare Living Will: No Advance Directives Information Provided: Yes Advance Directives on File: No DNR Order?:: No - MOLST See MOLST form: No Past Medical History - Past Medical Illness Medical History: Past Medical History (Last Updated 02/08/19 @ 11:13 by Yuni Womack) Carotid artery disease (Chronic) I73.9 Mild (<50%) stenosis right extracranial internal carotid. Moderate (50-69%) stenosis left extracranial internal carotid per Carotid Duplex done 02/06/19 @ @[facility]/Eric Moyer MD. Atherosclerosis of coronary artery of [place] heart without angina pectoris (Chronic) I25.10 Successful PTCA/HUDSON mid/distal LAD with a 2.25 x 38 Promus Synergy, post dilated in the proximal 1/3 with a 2.5 x 12 NC balloon, 85%-->0%, no disse ction. Successful PTCA/HUDSON proximal/mid LAD using a 2.5 x 38 Promus Synergy, post dilated with a 2.5, 3.0 and 3.5 x 8 NC balloon at various locations due to ectactic nature of vessel to insure proper stent apposition, 85%-->0%, no dissection. Hypertrophic cardiomyopathy (Chronic) I42.2 Essential hypertension (Chronic) I10 Hyperlipidemia (Chronic) E78.5 Diabetes mellitus, type II (Chronic) E11.9 Exertional chest pain (Resolved) R07.9 - Past Surgical History Surgical History: Past Surgical History (Last Reviewed 02/08/19 @ 11:01 by Yuni Womack) Stented coronary artery (Chronic) Onset Date: 01/12/19 Z95.5 Successful PTCA/HUDSON mid/distal LAD with a 2.25 x 38 Promus Synergy, post dilated in the proximal 1/3 with a 2.5 x 12 NC balloon, 85%-->0%, no dissection. Successful PTCA/HUDSON proximal/mid LAD using a 2.5 x 38 Promus Synergy, post dilated with a 2.5, 3.0 and 3.5 x 8 NC balloon at various locations due to ectactic nature of vessel to insure proper stent apposition, 85%-->0%, no dissection. 01/12/2019 Surgical History: noncontributory Social History - Smoking History Smoking Status: Former smoker - quit 47 years ago. Hx Tobacco Use: No Hx Smoking Exposure: No - Alcohol Use Alcohol Usage: No - Substance Abuse Hx Substance Use: No - Occupation Occupation (List type of work in comments):: Retired - Hobbies, Recreation, Social Activities Hobbies: Sports, Watch TV - watching sports on TV, Other - play baseball, [employer] in [place] and [place]. Recreational Activities: I am able to engage in a few activities Social Environment - Status Marital Status: - Current Living Arrangements Living Environment:: Spouse - Children How many children do you have?: 3 Do any of your children live nearby?: Yes - [facility] and [place] - Safety Do you feel safe in your surroundings?: Yes - Assistance Do you need any assistance at home?: None Review of Systems - Review of Systems Hints: Right click = Denies ([place]). Left click = Reports ([place]) Review of Present Symptoms: Reports: Shortness of Breath with Exertion, Fatigue, Appetite - Normal - too much so!, Appetite - Special Diet - low fat / low cholesterol, Sleep - Normal. Denies: Shortness of Breath at Rest, Dizziness/Lightheadedness, Heart Arrhythmia/Irregularities - Pain Is Patient Pain Free?: Yes Pain Location: none Pain Level: 0/10 Risk Factor Assessment - Chief Complaint Chief Complaint: PCI w/coronary stenting - Vital Signs Temperature: 97.5 F Respiratory Rate: 14 Pulse Ox: 96 Blood Pressure: 104/62 Nailbeds:: pink - Pulse Pulse Rate: 68 Pulse Rhythm: Regular - Hypertension How long have you been treated?: several years under Dr. Burton On medication(s)?: Yes Blood Pressure Sitting - Left Arm: 104/62 - Blood Cholesterol/Lipids Total Cholesterol (mg/dL) Goal = less than 200 mg/dL: 188 - 01/11/2019 HDL Cholesterol (mg/dL) Goal = less than 40 mg/dL: 39 LDL Cholesterol (mg/dL) Goal = less than 70 mg/dL: 104 Triglycerides (mg/dL) Goal = less than 150 mg/dL: 223 - Diabetes Diabetic History: Type II Nutrition Referral for Diabetes: Yes - Obesity Height: 6 ft 1 in Weight:: 262 lb 11.2 oz Weight in Pounds: 262.7 lbs Weight Source: Estimated by Patient Body Mass Index (BMI): 34.6 Nutritional Referral for Obesity: Yes - Physical Inactivity Physical Inactivity: None - Risk Stratification Risk Guidelines: Lowest Risk: Risk Factor for Smoking, Risk Factor for Dyslipidemia, Risk Factor for Hypertension, Risk Factor for Depression, Moderate Risk: Risk Factor for Diabetes - a1c 7.6%, Glucose 171, Risk Factor for Sedentary Lifestyle - For Smoking Smoking Risk Guidelines: Smoking Low Risk: None or quit greater than 6 months ago. Smoking Moderate Risk: Smoker or quit 6 months or less ago. Smoking High Risk: Smoker - For Dyslipidemia Dyslipidemia Risk Guidelines: Low Risk: Moderate Risk: High Risk: 15-25% fat 25.1-29% fat >/= 30% fat. <7% sat fat 7-9% sat fat >9% sat fat. <150 mg chol 150-299 mg chol >/= 300 mg chol. LDL <100 LDL 100-129 LDL >/= 130. Chol/HDL ratio <5.0 Chol/HDL ratio 5.0-6.0 Chol/HDL ratio >6.0. Triglycerides <100 Triglycerides 100-149 Triglycerides >/= 150 - For Diabetes Mellitus Diabetes Risk Guidelines: Diabetes Low Risk: HgA1c <6.5% and/or FBG <120. Diabetes Moderate Risk: HgA1c 6.6-7.9% and/or FBG 120-180. Diabetes High Risk: HgA1c >/= 8% and/or FBG >180 - For Obesity/Overweight Obesity/Overweight Risk Guidelines: Obesity Low Risk: BMI <25.0. Obesity Moderate Risk: BMI 25-29.9. Obesity High Risk: BMI >/= 30.0 - For Hypertension Hypertension Risk Guidelines: Hypertension Low Risk: Systolic <120 and Diastolic <80. Hypertension Moderate Risk: Systolic 120-139 and Diastolic 80-89. Hypertension High Risk: Systolic >/= 140 and Diastolic >/= 90 - For Sedentary Lifestyle Sedentary Lifestyle Risk Guidelines: Sedentary Lifestyle Low Risk: >/= 1,500 kcal/week. Sedentary Lifestyle Moderate Risk: 700-1,499 kcal/week. Sedentary Lifestyle High Risk: < 700 kcal/week - For Depression Depression Risk Guidelines: Depression Low Risk: Not clinically depressed. Depression Moderate Risk: Mildly depressed. Depression High Risk: Clinically depressed Motivation - Motivation to Participate On a scale of 1 to 10, how prepared are you to commit to attending program?: 4 What do you see as barriers to successfully being able to complete the program?: just take things as they come anymore, I'm 83 years old just not excited What do you see as the benefits of succesfully completing the program? In other words, what do you hope to get out of participating in the program?: getting more energy. Are there issues you are dealing with that will interfere with completing the program?: shortness of breath during activities and climbing stairs. Do you have a spouse or signficant other, family or friends who will help support you to complete the program?: Yes
--- NOTE | 2019-02-23 10:34 | PCM.CR.ITP ---
General Information - General Information Admitting Diagnosis: PCI w/coronary stenting - Education/Goals Barriers to Learning: Vision Impairment Individual Counseling: Initial Assessment: Abnormal Cholesterol Levels, High Blood Pressure - 104/62, Overweight/Obesity - 34.6, Diabetes, Metabolic Syndrome (as evidenced by 3 of 5 A-E below), A. Fasting Blood Sugar >100 - 171; a1c 7.6%, B. Waist Circumference >35/Females >40/Males, C. High Triglycerides >150 - 223, Hypertension - 104/62, Low HDL <40/Males or <50/Females, Sedentary Lifestyle Cardiac Rehabilitation Goals: 1. Maintain the individual as the primary focus of care. 2. To improve the patient's quality of life. 3. Identification of cardiac risk factors and provide cardiac risk factor management. 4. Enhance the psychosocial status of the patient. 5. Reconditioning enough to allow the patient to resume customary activities. 6. Control symptoms of cardiac disease Scale for measuring improvement of personal goals: Enter appropriate number in Comments. 2 = Unchanged. 3 = Slightly Better. 4 = Moderate Improvement. 5 = Met my Goal Personal Goals: Initial Assessment: Improve energy level, Participate in home exercise program, Improve knowledge of cardiac disease, Improve muscle strength and endurance, Improve diet and eating habits (eat healthier), Control risk factors (learn risk factor modification) Exercise - Initial Assessment - Visit Date of Eval: 02/23/19 - Stages of Change Stages of Change:: Action - Physician Prescribed Exercise Modalities: Treadmill, Airdyne, NuStep Frequency (days/week): 3x/week for 12 weeks [36 sessions] Duration (Minutes):: 30-45 Intensity: 60-80% age predicted maximum heart rate reserve METs - Progression: 0.5-1.0 MET, RPE 11-14 WEEK: 3.5 Target Heart Rate:: 88-116 - Hypertension Do any of the following apply?: Yes, Medication, Diet Resting Blood Pressure:: 104/62 - Intervention Home Exercise/Activity Goal:: Sitting Time <3 hrs/day - Education Goals:: Warm-up, RPE EDIE Scale, S/S, Safe Exercise, Self-Monitoring - Exercise Program Goals Exercise Program Goals: Aerobic Activity >30 min Nutrition - Initial Assessment - Program Goals Nutrition Program Goals: LDL <70. Total Cholesterol <200. HDL >45. Triglycerides <150. HgbA1C <7%. BMI <25 - Visit Date of Assessment:: 02/23/19 - Stages of Change Stages of Change:: Action - Lipids Total Cholesterol (mg/dL) Goal = less than 200 mg/dL: 188 - 01/11/2019 HDL Cholesterol (mg/dL) Goal = less than 45 mg/dL: 39 LDL Cholesterol (mg/dL) Goal = less than 70 mg/dL: 104 Triglycerides (mg/dL) Goal = less than 150 mg/dL: 223 - Diabetes Diabetes:: Yes Fasting blood glucose:: 171 Hgb A1C: 7.6 Insulin: Yes Do you monitor your blood sugar at home?: Yes - Weight Management Height: 6 ft 1 in Weight:: 263 lb Body Fat %:: 34.6 - Intervention Referral to dietitian:: Yes Referral to Diabetic Clinic:: Yes Will attend diet classes:: Yes - Education Gave educational materials for:: Signs & symptoms of hypoglycemia, Signs & symptoms of hyperglycemia, Relate diabetes to coronary artery disease, Healthy eating Tobacco - Initial Assessment - Program Goals Tobacco Program Goals: Complete smoking cessation. Attend education classes. Improve Knowledge Test score - Stage of Change Stages of Change:: Action - Learning Barriers Learning Barriers: Vision, Ready to Learn - Family Support Do you have family support?: Yes - Tobacco Use Tobacco Use: Non-smoker Do you use smokeless tobacco?: No - Intervention Smoking Cessation Referral:: No Individual Education/Counseling:: No Education Schedule Given:: Yes - Education Attended class for:: Treating Heart Disease, How The Heart Works, What it means to have Heart Disease, How Coronary Artery Disease is Diagnosed, Heart Procedures, What Heart Medications Do, Risk Factors & Modifications, Living an Active Life, Nutrition, Emotions & Heart Disease, Stress Management & Relaxation, Sleep Disorders & Heart Disease Psychosocial - Initial Assess - Target Goals Target Goals: Assess presence or absence of depression. Using a valid screening tool, maximizes coping skills. Positive support system - Stages of Change Stages of Change:: Action - Psychosocial Test Tool Used:: HANDS Depression Questionnaire - Intervention PS - Interventions: Yes Attend Stress Management Classes, No Referral to Mental Health, No Referral to [facility] Case Management, No Referral to Physician, No Uses Stress Management Skills - Education Gave educational materials for:: Coping techniques, Signs & symptoms of depression, Stress management, Relaxation techniques - Patient/Program Goal Preventative Medication(s):: Aspirin, MARS inhibitor, Clopidogrel, Beta santos, Statin/lipid - Assistive Devices Assistive Devices:: None Fall Risk Assessed:: Yes Patient Health Questionnaire Initial Assessment 1. Little interest or pleasure in doing things: Not at all 2. Feeling down, depressed, or hopeless: Not at all 3. Trouble falling or staying asleep, or sleeping too much: Not at all 4. Feeling tired or having little energy: Nearly every day 5. Poor appetite or overeating: Not at all 6. Feeling bad about yourself -- or that you are a failure or have let yourself or your family down: Not at all 7. Trouble concentrating on things, such as reading the newspaper or watching television: Not at all 8. Moving or speaking so slowly that other people could have noticed. Or the opposite - being so fidgety or restless that you have been moving around a lot more than usual: Not at all 9. Thoughts that you would be better off , or of hurting yourself in some way: Not at all How difficult have these problems made it for you to do your work, take care of things at home, or get along with other people?: Not difficult at all Total Score: 3 LAURIE-Q SV Test - Statements CAD is a disease of the arteries in the heart: I Don't Know Examples of risk factors for heart disease: True Angina is chest pain or discomfort: I Don't Know The benefits of resistance training include: True Eating more meat and dairy products: False Anti-platelet medications such as aspirin are important: True The only effective way to manage stress: I Don't Know An exercise warm-up slowly increases heart rate: True Prepared, processed foods usually have high sodium: True Depression is common after a heart attack: I Don't Know The statin medications lower cholesterol: True To control blood pressure, lower the amount of sodium: True If someone gets chest discomfort during walking: False Transfats are partially hydrogenated vegetable oils: I Don't Know Sleep apnea that is not treated increases the risk: I Don't Know To control cholesterol, one should become a vegetarian: I Don't Know Someone knows if he/she is exercising at the right level: I Don't Know Diabetes cannot be prevented with exercise & health eating: True Stress is a large risk for heart attack: I Don't Know A diet that can help lower blood pressure is rich in: True - Total Score Total Correct Responses: 10 Self-Efficacy Initial Assessment We would like to know how confident you are in doing certain activities. Please select your confidence level for:: Select your confidence level for the following using the scale 1-10 where 1 is not at all confident and 10 is totally confident. Your score is the average of all 6 responses. Fatigue: How confident are you that you can keep the fatigue caused by your disease from interfering with the things you want to do? Select Number: 7 Physical Discomfort or Pain: How confident are you that you can keep the physical discomfort or pain of your disease from interfering with the things you want to do? Select Number: 7 Emotional Distress: How confident are you that you can keep the emotional distress caused by your disease from interfering with the things you want to do? Select Number: 10 Other Symptoms or Health Problems: How confident are you that you can keep other symptoms or health problems from interfering with the things you want to do? Select Number: 8 Different Tasks and Activities: How confident are you that you can do the different tasks and activities needed to manage your health condition so as to reduce your need to see a doctor? Select Number: 10 Medication: How confident are you that you can do things other than just taking medication to reduce how much your illness affects your everyday life? Select Number: 10 Total Score:: 8 Nutrition Survey - Nutrition Survey Instructions Scoring Instructions: Scoring is as follows: Yes = 1 points. No = 0 point. Patient score that is >/=12 is considered to be at potential nutritional risk and could benefit from a referral to a registered dietitian. - Nutrition Survey Initial Have you lost >10 lbs over the past 2 months without trying?: No Are you following a special diet at home for diabetes, low fat, or low salt?: Yes Are you interested in meeting with a dietitian for help understanding your diet?: No Do you eat less than 3 meals a day?: No Do you eat fatty meats (desir, sausage, ribs, etc), fried foods, desserts, large amounts of salad dressings, margarine, butter, or cheese most days?: No Do you have food allergies? [Enter types in comment field]: No Do you eat in restaurants more than 3 times a week?: No Do you season food with salt, seasoning salt, or garlic salt?: Yes Do you used canned, boxed, frozen meals, or soups, seasoning packets?: No Total Score:: 2
[2019-02-23 11:10] VITALS: BP 104/62; PULSE 68; RESP 14; TEMP 36.4; O2SAT 96; BMI 34.6
[2019-02-23 11:49] VITALS: BP 104/62
== END ==
PROVIDERS: Family Provider Family Medicine; PCP Family Medicine; Referring Provider Internal Medicine Cardiovascular Disease; Visit Provider Internal Medicine Cardiovascular Disease
DX: I25.10 Atherosclerotic heart disease of native coronary artery without angina pectoris (principal); Z95.5 Presence of coronary angioplasty implant and graft; I42.2 Other hypertrophic cardiomyopathy; I10 Essential (primary) hypertension; E11.9 Type 2 diabetes mellitus without complications; E78.5 Hyperlipidemia, unspecified; E66.9 Obesity, unspecified

== ENCOUNTER 2019-03-24 13:00 | Outpatient (RCR) | payer MEDICARE, SELFPAY ==
[2019-02-23 11:10] VITALS: BMI 34.6
== END 2019-03-24 23:59 ==
LOC: CR 13:00
PROVIDERS: Family Provider Family Medicine; PCP Family Medicine; Referring Provider Internal Medicine Cardiovascular Disease; Visit Provider Internal Medicine Cardiovascular Disease
DX: I25.10 Atherosclerotic heart disease of native coronary artery without angina pectoris (principal); Z95.5 Presence of coronary angioplasty implant and graft
CPT/HCPCS: 93798

== ENCOUNTER 2019-04-21 13:00 | Outpatient (RCR) | payer MEDICARE, SELFPAY ==
[2019-01-13 08:46] VITALS: BMI 34.8
[2019-02-23 11:10] VITALS: BMI 34.6
--- NOTE | 2019-03-28 07:03 | CR.ITP_ITS ---
Diagnosis - General Information Admitting Diagnosis: PCI w/coronary stenting Personal Learning Style:: Audio/Visual, Group, Written Barriers to Learning: Hearing Impairment, Vision Impairment Stage of change r/t lifestyle modifications:: Action Gave educational material for:: Treating Heart Disease, Emotions & Heart Disease, Stress Management & Relaxation, Sleep Disorders & Heart Disease, How The Heart Works, What it means to have Heart Disease, How Coronary Artery Disease is Diagnosed, Heart Procedures, What Heart Medications Do, Risk Factors & Modifications, Living an Active Life, Nutrition - Education/Goals Individual Counseling: Initial Assessment: Abnormal Cholesterol Levels, High Blood Pressure, Overweight/Obesity Cardiac Rehabilitation Goals: 1. Maintain the individual as the primary focus of care. 2. To improve the patient's quality of life. 3. Identification of cardiac risk factors and provide cardiac risk factor management. 4. Enhance the psychosocial status of the patient. 5. Reconditioning enough to allow the patient to resume customary activities. 6. Control symptoms of cardiac disease Personal Goals: Initial Assessment: Improve energy level, Participate in home exercise program, Improve knowledge of cardiac disease, Improve muscle strength and endurance, Improve diet and eating habits (eat healthier), Control risk factors (learn risk factor modification) Scale for measuring improvement of personal goals: Enter appropriate number in Comments. 2 = Unchanged. 3 = Slightly Better. 4 = Moderate Improvement. 5 = Met my Goal - Diagnosis & Disease Process Outcomes/Goals: Pt IDs own risk factors & lifestyle modifications by Session 10, Verbalizes symptoms of angina & response by session 3., Pt independently manages Plan/Interventions: Assist Pt to ID & engage in lifestyle modification to reduce CVD risk, Instruct on individual risk factors, Review symptoms of angina & emergency actions, Review secondary diagnosis & identify educational needs. 30 day Reassessments:: Progressing - Safety Referral to Physical Therapy: No Referral to [facility] Case Management: No Fall Risk Assessed:: Yes Assistive Devices:: None Exercise - 30-day Assessment - Visit Date of Eval: 03/28/19 Session #:: 12 - Physician Prescribed Exercise Modalities: Treadmill, Airdyne, NuStep Frequency: 3x/week for 12 weeks [36 sessions] Intensity: 60-80% of age predicted maximum heart rate reserve Current METSs:: 3.1 Target Heart Rate:: 88-116 Current RPE:: 13-14 Maximum Excercise HR:: 92 Resting Blood Pressure: 118/40 Maximum Exercise Blood Pressure: 142/52 EKG Type: NSR without ectopy Current Physical Activity or Exercising minutes: 15-20 minutes twice daily (walking) - Outcomes & Goals Goals:: Verbalizes understanding of THR, RPE & goal METS by session 6, Documents in home exercise log/reports 30 min aerobic 5 day/wk by DC, Demonstrates accurate pulse taking by DC - Intervention & Plan Exercise Program Goals: Instruct on personal THR & RPE, Instruct on MET level & personal MET goal, Show patient to take own pulse /validate performance until accurate, Instruct on home exercise - 30-day Reassessments 30 day Reassessments:: Progressing - Physical Activity Home Exercise Physical Activity - Home Exercise: Safe Exercise, Warm-up, Self-monitoring, Cool-Down, Home Exercise > 30 min Daily, Sitting Time <3 hours/daily - Outcomes & Goals Outcomes/Goals: Demonstrates correct Warm-up/exercise Cool-Down (S3) if = 2.5 METs, Verbalizes symptoms of exercise intolerance by Session 3 (S3), Demonstrate safe equipment use (S3) & follows exercise prescrition (6) - Intervention & Plan Plan/Intervention: Instruct warm-up & cool-down if exercising at > 2 METs, Instruct on symptoms of exercise intolerance & actions to take, Instruct & monitor on saf, Assess intial functional capacity & safety risk - 30-day Reassessments 30 day Reassessments:: Progressing Nutrition - 30-Day Assessment - Program Goals Nutrition Program Goals: LDL <100 optimal. 100 - 129 Near optimal. 130 - 159 Borderline High. 160 - 189 High. Total Cholesterol <200 desirable. 200 - 239 Borderline High. >/= 240 High. HDL < 40 Low >/=60 High. Triglycerides <150 desirable. <199 optimal. VlDL 5 - 40. HgbA1C <7%. BMI <25 Patient has diagnosis of Hyperlipidemia (ICD E78)?: Yes - Visit Date of Assessment:: 03/28/19 Session #:: 12 - Cholesterol/Lipids Triglycerides (mg/dL): 223 - 01/11/2019 Total Cholesterol (mg/dL): 188 LDL Cholesterol (mg/dL): 104 HDL Cholesterol (mg/dL): 39 Determine presence & major risk factors that modify LDL goal: Hypertension or hy pertensive medication, Age men > 45 years; women >/= 55 years Outcomes/Goals: Pt IDs own risk factors & lifestyle modifications by Session 10, Verbalizes symptoms of angina & response by session 3., Pt independently manages Intervention/Plan: Instruct on personal lipid levels & lipid goals/NCEP guidelines, Instruct on cholesterol 30-day Reassessments:: Progressing - Diabetes (Other Core Measures) Diabetes Type: Not Applicable Fasting blood glucose:: 171 Hgb A1C (4.2 -6.3): 7.6 Insulin dependent injection/pump?: No Non-Insulin Dependent?: No Do you monitor your blood sugar at home?: No Referral to Diabetic Clinic:: No - Weight Mgt (Other Care) Not Applicable: Yes Height: 6 ft Weight:: 250 lb - down from 263! BMI: 33.9 Diagnosis Overweight/Obesity BMI> 30% ICD-10 E66: Yes Outcomes/Goals: Pt sets, maintains & shows weight loss goal & trend during rehab Intervention/Plan: Instruct on ideal BMI & set weight loss goal w/patient, Assist pt to ID & incorporate diet changes for weight loss by S9, Refer to Structured Weight Loss program as appropriate, Encourage goal of using 250- 300dcal per session for weight loss 30 day Reassessments:: Progressing - Healthy Eating Habits Will attend diet classes:: Yes Outcomes/Goals:: Consume diet rich in vegs,fruits,whole grain/high fiber,fish,lean meat, Limit sat/trans fats,cholesterol & added salts & sugars Intervention/Plan:: Assess current eating habits 30-day Reassessments:: Progressing - Education Gave educational materials for:: Healthy eating Medical- 30-Day Assessment - Visit Date of Eval: 03/28/19 Session #:: 12 - Medication Compliance Preventative Medication(s):: Aspirin, Ticagrelor/P2Y12 inhibitor, Statin/lipid, Beta santos H/O mental health issues: depression, anxiety, or addiction?: No Doesn?t believe in the benefits of treatment?: No Believes medications are unnecessary or harmful?: No Has a concern about medication side effects?: No Expresses concern over the cost of medications?: No Outcomes/Goals: Verbalizes medications,desired effect & common side effects @ DC, Pt self-reports following medication regimen, Keeps card in wallet w/medications listed by DC Interventions/plans: Instruct on medication effects & side effects, Review medication list w/patient every two weeks, Instruct importance of taking meds as ordered & assist problem solving 30-day Reassessments:: Progressing - Tobacco Use Tobacco Use: Non-smoker - Hypertension Hypertension Diagnosis:: Hypertension ICD-10 I10 Resting Blood Pressure:: 118/40 [place] [employer] Hypertension Guidelines: [place] [employer] Hypertension Guidelines. Normal BP Less than 120/80. Elevated BP 120/80. Hypertension Stage 1: BP 130-139/80-89. Hypertesnion Stage 2: BP 140 or higher/90 or higher. Hypertension Crisis: BP higher than 180/120 Peak Exercise Blood Pressure:: 142/52 Outcomes/Goals: Able to verbalize/achieve optimal blood pressure <130/80, Incorporates diet changes & exercise for blood pressure control by DC Interventions/plan: Instruct on optimal blood pressure, hypertension & medications, Instruct on effects of sodium, alcohol, stress, exercise &hypertension 30 day Reassessments:: Progressing - Tobacco Cessation Referral Smoking Cessation Referral:: No Individual Education/Counseling:: No Education Schedule Given:: Yes Psychosocial - 30-Day Assess - VIsit Date of Eval: 03/28/19 Session #:: 12 Not Applicable: Yes History of previous Mental disease:: No - Target Goals Target Goals: Assess presence or absence of depression. Using a valid screening tool, maximizes coping skills. Positive support system - Psychosocial Test Tool Used:: [email or web address] QOL Cardiac, PHQ-9 Questionnaire phq-9 Severity: Severity. 1-4 Minimal Depression. 5-9 Mild Depression. 10-14 Moderate Depression. 15-19 Moderately Sever Depression. 20-27 Severe Depression. Rule: Total Score:: 2 - Referral to Behavioral Health PS - Interventions: Yes Attend Stress Management Classes, No Referral to Behavioral Health if PHQ-9 score >9:, No Referral to [facility], No Referral to Physician if PHQ-9 if score is 5-9: - Outcomes/Goals: See list Psychosocial Outcomes/Goals:: ID's personal stressors & 2 strategies to manage stress by discharge - Intervention/Plan: See List Interventions/Plan:: Assess stressors,coping strategies & signs of derpression on admission, Instruct/assist pt to develop coping & personal stress Mgt strategies, Instruct patient to recognize signs & symptoms of depression, Instruct patient to recog - 30-day Reassessments: 30 day Reassessments:: Progressing Patient Health Questionnaire 30-Day Re-eval Assessment 1. Little interest or pleasure in doing things: Not at all 2. Feeling down, depressed, or hopeless: Not at all 3. Trouble falling or staying asleep, or sleeping too much: Not at all 4. Feeling tired or having little energy: More than half the days 5. Poor appetite or overeating: Not at all 6. Feeling bad about yourself -- or that you are a failure or have let yourself or your family down: Not at all 7. Trouble concentrating on things, such as reading the newspaper or watching television: Not at all 8. Moving or speaking so slowly that other people could have noticed. Or the opposite - being so fidgety or restless that you have been moving around a lot more than usual: Not at all 9. Thoughts that you would be better off , or of hurting yourself in some way: Not at all How difficult have these problems made it for you to do your work, take care of things at home, or get along with other people?: Not difficult at all Total Score: 2 Self-Efficacy 30-Day Re-eval Assessment We would like to know how confident you are in doing certain activities. Please select your confidence level for:: Select your confidence level for the following using the scale 1-10 where 1 is not at all confident and 10 is totally confident. Your score is the average of all 6 responses. Fatigue: How confident are you that you can keep the fatigue caused by your disease from interfering with the things you want to do? Select Number: 7 Physical Discomfort or Pain: How confident are you that you can keep the physical discomfort or pain of your disease from interfering with the things you want to do? Select Number: 7 Emotional Distress: How confident are you that you can keep the emotional distress caused by your disease from interfering with the things you want to do? Select Number: 10 Other Symptoms or Health Problems: How confident are you that you can keep other symptoms or health problems from interfering with the things you want to do? Select Number: 8 Different Tasks and Activities: How confident are you that you can do the different tasks and activities needed to manage your health condition so as to reduce your need to see a doctor? Select Number: 10 Medication: How confident are you that you can do things other than just taking medication to reduce how much your illness affects your everyday life? Select Number: 10 Total Score:: 8
[2019-03-28 07:13] VITALS: BP 118/40; BP 142/52; BMI 33.9
== END 2019-04-22 23:59 ==
LOC: CR 13:00
PROVIDERS: Family Provider Family Medicine; PCP Family Medicine; Referring Provider Internal Medicine Cardiovascular Disease; Visit Provider Internal Medicine Cardiovascular Disease
DX: I25.10 Atherosclerotic heart disease of native coronary artery without angina pectoris (principal); Z95.5 Presence of coronary angioplasty implant and graft
CPT/HCPCS: 93798

== ENCOUNTER → 2019-04-25 09:29 | Outpatient (CLI) | payer MEDICARE, SELFPAY ==
[2019-02-23 11:10] VITALS: BMI 34.6
[2019-04-24 11:50] VITALS: BMI 34.5
[2019-04-25 10:50] LABS: Microalbumin,Random Urine 20.2 mg/L (NO RANGE EST.); Microalbumin:Creatinine Ratio 16.7 mg/g CRE (<30 mg/g CRE)
[2019-04-25 10:58] LABS: AST(SGOT) 32 U/L (15-37); Alanine Aminotransfer ALT/SGPT 35 U/L (16-61); Albumin, Serum 3.7 g/dL (3.2-5.0); Alkaline Phosphatase 95 U/L (45-117); Anion Gap 3 (5-15); BUN 25 mg/dL (7-18); BUN/Creat Ratio 20.8 RATIO (10-20); Calcium,Total 9.3 mg/dL (8.5-10.1); Chloride 103 mmol/L (98-107); EST Glomerular Filtration Rate 61 mL/min (>60); Est Glom Filt Rate - Afr Amer 74 mL/min (>60); Globulin 3.7 g/dL (2.2-4.2); Glucose 163 mg/dL (74-106); Protein, Total 7.4 g/dL (6.4-8.2); Sodium Level 140 mmol/L (136-145)
[2019-04-25 11:33] LABS: Hemoglobin A1c 7.3 % (4.2-6.3)
== END ==
PROVIDERS: PCP Family Medicine; Referring Provider Family Medicine; Visit Provider Family Medicine
DX: E11.9 Type 2 diabetes mellitus without complications (principal)
CPT/HCPCS: 36415; 80053; 82043; 82570; 83036

== ENCOUNTER 2019-05-22 13:00 | Outpatient (RCR) | payer MEDICARE, SELFPAY ==
[2019-02-23 11:10] VITALS: BMI 34.6
[2019-03-28 07:13] VITALS: BMI 33.9
[2019-04-23 00:45] VITALS: BP 118/40; BP 142/52
--- NOTE | 2019-04-24 11:41 | CR.ITP_ITS ---
Diagnosis - General Information Admitting Diagnosis: PCI W/CORONARY STENTING Personal Learning Style:: Audio/Visual, Written Barriers to Learning: Hearing Impairment, Vision Impairment Stage of change r/t lifestyle modifications:: Action Gave educational material for:: Treating Heart Disease, Emotions & Heart Disease, Stress Management & Relaxation, Sleep Disorders & Heart Disease, How The Heart Works, What it means to have Heart Disease, How Coronary Artery Disease is Diagnosed, Heart Procedures, What Heart Medications Do, Risk Factors & Modifications, Living an Active Life, Nutrition - Education/Goals Individual Counseling: Initial Assessment: Abnormal Cholesterol Levels, High Blood Pressure, Overweight/Obesity Cardiac Rehabilitation Goals: 1. Maintain the individual as the primary focus of care. 2. To improve the patient's quality of life. 3. Identification of cardiac risk factors and provide cardiac risk factor management. 4. Enhance the psychosocial status of the patient. 5. Reconditioning enough to allow the patient to resume customary activities. 6. Control symptoms of cardiac disease Personal Goals: Initial Assessment: Improve energy level, Participate in home exercise program, Improve knowledge of cardiac disease, Improve muscle strength and endurance, Improve diet and eating habits (eat healthier), Control risk factors (learn risk factor modification) Scale for measuring improvement of personal goals: Enter appropriate number in Comments. 2 = Unchanged. 3 = Slightly Better. 4 = Moderate Improvement. 5 = Met my Goal - Diagnosis & Disease Process Outcomes/Goals: Pt IDs own risk factors & lifestyle modifications by Session 10, Verbalizes symptoms of angina & response by session 3., Pt independently manages Plan/Interventions: Assist Pt to ID & engage in lifestyle modification to reduce CVD risk, Instruct on individual risk factors, Review symptoms of angina & emergency actions, Review secondary diagnosis & identify educational needs. 30 day Reassessments:: Progressing 30 day Reassessments:: Progressing - Safety Referral to Physical Therapy: No Referral to [facility] Case Management: No Fall Risk Assessed:: Yes Assistive Devices:: Cane Exercise - 60-day Assessment - Physician Prescribed Exercise Modalities: Treadmill, Airdyne, NuStep, SciFit Frequency: 3x/week for 12 weeks [36 sessions] Intensity: 60-80% of age predicted maximum heart rate reserve Current METSs:: 3.1 SAFETY OF PATIENT Target Heart Rate:: 88-116 Current RPE:: 13-14 Maximum Excercise HR:: 92 Resting Blood Pressure: 122/48 Maximum Exercise Blood Pressure: 144/50 EKG Type: NSR WITH RARE PACs - Outcomes & Goals Goals:: Verbalizes understanding of THR, RPE & goal METS by session 6, Documents in home exercise log/reports 30 min aerobic 5 day/wk by DC, Demonstrates accurate pulse taking by DC - Intervention & Plan Exercise Program Goals: Instruct on personal THR & RPE, Instruct on MET level & personal MET goal, Show patient to take own pulse /validate performance until accurate, Instruct on home exercise - 30-day Reassessments 30 day Reassessments:: Progressing - Physical Activity Home Exercise Physical Activity - Home Exercise: Safe Exercise, Warm-up, Self-monitoring, Cool-Down, Home Exercise > 30 min Daily, Sitting Time <3 hours/daily - Outcomes & Goals Outcomes/Goals: Demonstrates correct Warm-up/exercise Cool-Down (S3) if = 2.5 METs, Verbalizes symptoms of exercise intolerance by Session 3 (S3), Demonstrate safe equipment use (S3) & follows exercise prescrition (6) - Intervention & Plan Plan/Intervention: Instruct warm-up & cool-down if exercising at > 2 METs, Instruct on symptoms of exercise intolerance & actions to take, Instruct & monitor on saf, Assess intial functional capacity & safety risk - 30-day Reassessments 30 day Reassessments:: Progressing - EVEN STATES HE IS MORE ACTIVE AT HOME. Nutrition - 60-Day Assessment - Program Goals Nutrition Program Goals: LDL <100 optimal. 100 - 129 Near optimal. 130 - 159 Borderline High. 160 - 189 High. Total Cholesterol <200 desirable. 200 - 239 Borderline High. >/= 240 High. HDL < 40 Low >/=60 High. Triglycerides <150 desirable. <199 optimal. VlDL 5 - 40. HgbA1C <7%. BMI <25 Patient has diagnosis of Hyperlipidemia (ICD E78)?: Yes - Visit Date of Assessment:: 04/24/19 Session #:: 23 - Cholesterol/Lipids Triglycerides (mg/dL): 0 - NO NEW LABS HDL Cholesterol (mg/dL): 39 Determine presence & major risk factors that modify LDL goal: Hypertension or hypertensive medication, Low HDL cholesterol <40 mg/dL*, Family history of premature CHD in Male < 55 years: female <65 yearsFa, Age men > 45 years; women >/= 55 years Outcomes/Goals: Pt IDs own risk factors & lifestyle modifications by Session 10, Verbalizes symptoms of angina & response by session 3., Pt independently manages Intervention/Plan: Instruct on personal lipid levels & lipid goals/NCEP guidelines, Instruct on cholesterol Referral to dietitian:: Yes - MEDICAL NUTRITION THERAPY 30-day Reassessments:: Progressing - Diabetes (Other Core Measures) Diabetes Type: Not Applicable - Weight Mgt (Other Care) Not Applicable: No Height: 6 ft Weight:: 255 lb BMI: 34.5 Diagnosis Overweight/Obesity BMI> 30% ICD-10 E66: Yes Diagnosis High BMI/Morbid Obesity BMI> 35% ICD-10 Z68: No Outcomes/Goals: Pt sets, maintains & shows weight loss goal & trend during rehab Intervention/Plan: Instruct on ideal BMI & set weight loss goal w/patient, Assist pt to ID & incorporate diet changes for weight loss by S9, Refer to Structured Weight Loss program as appropriate, Encourage goal of using 250- 300dcal per session for weight loss 30 day Reassessments:: Not Met Reassessment Notes & Comments:: PATIENT HAS GAINED WEIGHT - Healthy Eating Habits Will attend diet classes:: Yes Outcomes/Goals:: Consume diet rich in vegs,fruits,whole grain/high fiber,fish,lean meat, Limit sat/trans fats,cholesterol & added salts & sugars Intervention/Plan:: Assess current eating habits 30-day Reassessments:: Progressing - Education Gave educational materials for:: Healthy eating Medical- 60-Day Assessment - Visit Date of Eval: 04/24/19 Session #:: 23 - Medication Compliance Preventative Medication(s):: Aspirin, Ticagrelor/P2Y12 inhibitor, Statin/lipid, Beta santos H/O mental health issues: depression, anxiety, or addiction?: No Doesn?t believe in the benefits of treatment?: No Believes medications are unnecessary or harmful?: No Has a concern about medication side effects?: No Expresses concern over the cost of medications?: No Outcomes/Goals: Verbalizes medications,desired effect & common side effects @ DC, Pt self-reports following medication regimen, Keeps card in wallet w /medications listed by DC Interventions/plans: Instruct on medication effects & side effects, Review medication list w/patient every two weeks, Instruct importance of taking meds as ordered & assist problem solving 30-day Reassessments:: Progressing - Tobacco Use Tobacco Use: Non-smoker - Hypertension Hypertension Diagnosis:: Hypertension ICD-10 I10 Resting Blood Pressure:: 122/48 - CONTROLLED [place] [employer] Hypertension Guidelines: [place] [employer] Hypertension Guidelines. Normal BP Less than 120/80. Elevated BP 120/80. Hypertension Stage 1: BP 130-139/80-89. Hypertesnion Stage 2: BP 140 or higher/90 or higher. Hypertension Crisis: BP higher than 180/120 Peak Exercise Blood Pressure:: 144/50 Outcomes/Goals: Able to verbalize/achieve optimal blood pressure <130/80, Incorporates diet changes & exercise for blood pressure control by DC Interventions/plan: Instruct on optimal blood pressure, hypertension & med ications, Instruct on effects of sodium, alcohol, stress, exercise &hypertension 30 day Reassessments:: Progressing - Tobacco Cessation Referral Smoking Cessation Referral:: No Individual Education/Counseling:: No Education Schedule Given:: Yes Psychosocial - 60-Day Assess - VIsit Date of Eval: 04/24/19 Session #:: 23 Not Applicable: Yes - Target Goals Target Goals: Assess presence or absence of depression. Using a valid screening tool, maximizes coping skills. Positive support system - Psychosocial Test Tool Used:: [employer] QOL Cardiac, PHQ-9 Questionnaire phq-9 Severity: Severity. 1-4 Minimal Depression. 5-9 Mild Depression. 10-14 Moderate Depression. 15-19 Moderately Sever Depression. 20-27 Severe Depression. Rule: See PHQ-9 Score: 2 Total Score:: 2 - Referral to Behavioral Health PS - Interventions: Yes Attend Stress Management Classes, No Referral to Behavioral Health if PHQ-9 score >9:, No Referral to [facility], No Referral to Physician if PHQ-9 if score is 5-9: - Outcomes/Goals: See list Psychosocial Outcomes/Goals:: ID's personal stressors & 2 strategies to manage stress by discharge - Intervention/Plan: See List Interventions/Plan:: Assess stressors,coping strategies & signs of derpression on admission, Instruct/assist pt to develop coping & personal stress Mgt strategies, Instruct patient to recognize signs & symptoms of depression, Instruct patient to recog - 30-day Reassessments: 30 day Reassessments:: Progressing Patient Health Questionnaire 60-Day Re-eval Assessment 1. Little interest or pleasure in doing things: Not at all 2. Feeling down, depressed, or hopeless: Not at all 3. Trouble falling or staying asleep, or sleeping too much: Not at all 4. Feeling tired or having little energy: Several days 5. Poor appetite or overeating: Not at all 6. Feeling bad about yourself -- or that you are a failure or have let yourself or your family down: Not at all 7. Trouble concentrating on things, such as reading the newspaper or watching television: Not at all 8. Moving or speaking so slowly that other people could have noticed. Or the opposite - being so fidgety or restless that you have been moving around a lot more than usual: Not at all 9. Thoughts that you would be better off , or of hurting yourself in some way: Not at all Total Score: 1 Self-Efficacy 60-Day Re-eval Assessment We would like to know how confident you are in doing certain activities. Please select your confidence level for:: Select your confidence level for the following using the scale 1-10 where 1 is not at all confident and 10 is totally confident. Your score is the average of all 6 responses. Fatigue: How confident are you that you can keep the fatigue caused by your disease from interfering with the things you want to do? Select Number: 7 Physical Discomfort or Pain: How confident are you that you can keep the physical discomfort or pain of your disease from interfering with the things you want to do? Select Number: 8 Emotional Distress: How confident are you that you can keep the emotional distress caused by your disease from interfering with the things you want to do? Select Number: 10 Other Symptoms or Health Problems: How confident are you that you can keep other symptoms or health problems from interfering with the things you want to do? Select Number: 8 Different Tasks and Activities: How confident are you that you can do the different tasks and activities needed to manage your health condition so as to reduce your need to see a doctor? Select Number: 9 Medication: How confident are you that you can do things other than just taking medication to reduce how much your illness affects your everyday life? Select Number: 10 Total Score:: 8
[2019-04-24 11:50] VITALS: BP 122/48; BP 144/50; BMI 34.5
--- NOTE | 2019-05-24 07:02 | PCM.CR.ITP ---
Diagnosis - General Information Admitting Diagnosis: PCI w/coronary stenting Personal Learning Style:: Audio/Visual, Written Barriers to Learning: Hearing Impairment, Vision Impairment Stage of change r/t lifestyle modifications:: Action Gave educational material for:: Treating Heart Disease, Emotions & Heart Disease, Stress Management & Relaxation, Sleep Disorders & Heart Disease, How The Heart Works, What it means to have Heart Disease, How Coronary Artery Disease is Diagnosed, Heart Procedures, What Heart Medications Do, Risk Factors & Modifications, Living an Active Life, Nutrition - Education/Goals Individual Counseling: Initial Assessment: Abnormal Cholesterol Levels, High Blood Pressure, Overweight/Obesity Cardiac Rehabilitation Goals: 1. Maintain the individual as the primary focus of care. 2. To improve the patient's quality of life. 3. Identification of cardiac risk factors and provide cardiac risk factor management. 4. Enhance the psychosocial status of the patient. 5. Reconditioning enough to allow the patient to resume customary activities. 6. Control symptoms of cardiac disease Personal Goals: Initial Assessment: Improve energy level - 4, Participate in home exercise program - 4, Improve knowledge of cardiac disease - 4, Improve muscle strength and endurance - 4, Improve diet and eating habits (eat healthier) - 4, Control risk factors (learn risk factor modification) - 4 Scale for measuring improvement of personal goals: Enter appropriate number in Comments. 2 = Unchanged. 3 = Slightly Better. 4 = Moderate Improvement. 5 = Met my Goal - Diagnosis & Disease Process Outcomes/Goals: Pt IDs own risk factors & lifestyle modifications by Session 10, Verbalizes symptoms of angina & response by session 3., Pt independently manages Plan/Interventions: Assist Pt to ID & engage in lifestyle modification to reduce CVD risk, Instruct on individual risk factors, Review symptoms of angina & emergency actions, Review secondary diagnosis & identify educational needs. 30 day Reassessments:: Progressing 30 day Reassessments:: Progressing 30 day Reassessments:: Met - Safety Referral to Physical Therapy: No Referral to [facility] Case Management: No Fall Risk Assessed:: Yes Assistive Devices:: None Exercise - 90-day Assessment - Visit Date of Eval: 05/24/19 Session #:: 34 - Physician Prescribed Exercise Modalities: Treadmill, Airdyne, NuStep Frequency: 3x/week for 12 weeks [36 sessions] Intensity: 60-80% of age predicted maximum heart rate reserve Current METSs:: 3.5 Target Heart Rate:: 88-116 Current RPE:: 13 Maximum Excercise HR:: 84 Resting Blood Pressure: 122/40 Maximum Exercise Blood Pressure: 148/50 EKG Type: sinus bradycardia to sinus rhythm with rare PACs. - Outcomes & Goals Goals:: Verbalizes understanding of THR, RPE & goal METS by session 6, Documents in home exercise log/reports 30 min aerobic 5 day/wk by DC, Demonstrates accurate pulse taking by DC - Intervention & Plan Exercise Program Goals: Instruct on personal THR & RPE, Instruct on MET level & personal MET goal, Show patient to take own pulse /validate performance until accurate, Instruct on home exercise - 30-day Reassessments 30 day Reassessments:: Progressing - Physical Activity Home Exercise Physical Activity - Home Exercise: Safe Exercise, Warm-up, Self-monitoring, Cool-Down, Home Exercise > 30 min Daily, Sitting Time <3 hours/daily - Outcomes & Goals Outcomes/Goals: Demonstrates correct Warm-up/exercise Cool-Down (S3) if = 2.5 METs, Verbalizes symptoms of exercise intolerance by Session 3 (S3), Demonstrate safe equipment use (S3) & follows exercise prescrition (6) - Intervention & Plan Plan/Intervention: Instruct warm-up & cool-down if exercising at > 2 METs, Instruct on symptoms of exercise intolerance & actions to take, Instruct & monitor on saf - 30-day Reassessments 30 day Reassessments:: Met Nutrition - 90-Day Assessment - Program Goals Nutrition Program Goals: LDL <100 optimal. 100 - 129 Near optimal. 130 - 159 Borderline High. 160 - 189 High. Total Cholesterol <200 desirable. 200 - 239 Borderline High. >/= 240 High. HDL < 40 Low >/=60 High. Triglycerides <150 desirable. <199 optimal. VlDL 5 - 40. HgbA1C <7%. BMI <25 Patient has diagnosis of Hyperlipidemia (ICD E78)?: Yes - Visit Date of Assessment:: 05/24/19 Session #:: 34 - Cholesterol/Lipids Determine presence & major risk factors that modify LDL goal: Hypertension or hypertensive medication, Age men > 45 years; women >/= 55 years Outcomes/Goals: Pt IDs own risk factors & lifestyle modifications by Session 10, Verbalizes symptoms of angina & response by session 3., Pt independently manages Intervention/Plan: Instruct on personal lipid levels & lipid goals/NCEP guidelines, Instruct on cholesterol Referral to dietitian:: No 30-day Reassessments:: Progressing - Weight Mgt (Other Care) Not Applicable: No Height: 6 ft Weight:: 255 lb BMI: 34.5 Diagnosis Overweight/Obesity BMI> 30% ICD-10 E66: Yes Diagnosis High BMI/Morbid Obesity BMI> 35% ICD-10 Z68: Yes Outcomes/Goals: Pt sets, maintains & shows weight loss goal & trend during rehab Intervention/Plan: Instruct on ideal BMI & set weight loss goal w/patient, Assist pt to ID & incorporate diet changes for weight loss by S9, Encourage goal of using 250-300dcal per session for weight loss 30 day Reassessments:: Progressing - Healthy Eating Habits Will attend diet classes:: Yes Outcomes/Goals:: Consume diet rich in vegs,fruits,whole grain/high fiber,fish,lean meat, Limit sat/trans fats,cholesterol & added salts & sugars Intervention/Plan:: Assess current eating habits 30-day Reassessments:: Progressing - Education Gave educational materials for:: Healthy eating Medical- 90-Day Assessment - Visit Date of Eval: 05/24/19 Session #:: 34 - Medication Compliance Preventative Medication(s):: Aspirin, Ticagrelor/P2Y12 inhibitor, Statin/lipid, Beta santos H/O mental health issues: depression, anxiety, or addiction?: No Doesn?t believe in the benefits of treatment?: No Believes medications are unnecessary or harmful?: No Has a concern about medication side effects?: No Expresses concern over the cost of medications?: No Outcomes/Goals: Verbalizes medications,desired effect & common side effects @ DC, Pt self-reports following medication regimen, Keeps card in wallet w/medications listed by DC Interventions/plans: Instruct on medication effects & side effects, Review medication list w/patient every two weeks, Instruct importance of taking meds as ordered & assist problem solving 30-day Reassessments:: Progressing - Tobacco Use Tobacco Use: Non-smoker - Hypertension Hypertension Diagnosis:: Hypertension ICD-10 I10 Resting Blood Pressure:: 122/40 - controlled Citizen [place] [employer] Hypertension Guidelines: Citizen [place] [employer] Hypertension Guidelines. Normal BP Less than 120/80. Elevated BP 120/80. Hypertension Stage 1: BP 130-139/80-89. Hypertesnion Stage 2: BP 140 or higher/90 or higher. Hypertension Crisis: BP higher than 180/120 Peak Exercise Blood Pressure:: 148/50 Outcomes/Goals: Able to verbalize/achieve optimal blood pressure <130/80, Incorporates diet changes & exercise for blood pressure control by DC Interventions/plan: Instruct on optimal blood pressure, hypertension & medications, Instruct on effects of sodium, alcohol, stress, exercise &hypertension 30 day Reassessments:: Progressing - Tobacco Cessation Referral Smoking Cessation Referral:: No Individual Education/Counseling:: No Education Schedule Given:: Yes Psychosocial - 90-Day Assess - VIsit Date of Eval: 05/24/19 Session #:: 34 Not Applicable: Yes History of previous Mental disease:: No - Target Goals Target Goals: Assess presence or absence of depression. Using a valid screening tool, maximizes coping skills. Positive support system - Psychosocial Test Tool Used:: Indra Nicholas QOL Cardiac, PHQ-9 Questionnaire phq-9 Severity: Severity. 1-4 Minimal Depression. 5-9 Mild Depression. 10-14 Moderate Depression. 15-19 Moderately Sever Depression. 20-27 Severe Depression. Rule: - Referral to Behavioral Health PS - Interventions: Yes Attend Stress Management Classes, No Referral to Behavioral Health if PHQ-9 score >9:, No Referral to [facility], No Referral to Physician if PHQ-9 if score is 5-9: - Outcomes/Goals: See list Psychosocial Outcomes/Goals:: ID's personal stressors & 2 strategies to manage stress by discharge - Intervention/Plan: See List Interventions/Plan:: Assess stressors,coping strategies & signs of derpression on admission, Instruct/assist pt to develop coping & personal stress Mgt strategies, Instruct patient to recognize signs & symptoms of depression, Instruct patient to recog - 30-day Reassessments: 30 day Reassessments:: Met Patient Health Questionnaire 90-Day Re-eval Assessment 1. Little interest or pleasure in doing things: Not at all 2. Feeling down, depressed, or hopeless: Not at all 3. Trouble falling or staying asleep, or sleeping too much: Not at all 4. Feeling tired or having little energy: Not at all 5. Poor appetite or overeating: Not at all 6. Feeling bad about yourself -- or that you are a failure or have let yourself or your family down: Not at all 7. Trouble concentrating on things, such as reading the newspaper or watching television: Not at all 8. Moving or speaking so slowly that other people could have noticed. Or the opposite - being so fidgety or restless that you have been moving around a lot more than usual: Not at all 9. Thoughts that you would be better off , or of hurting yourself in some way: Not at all How difficult have these problems made it for you to do your work, take care of things at home, or get along with other people?: Not difficult at all Total Score: 0 Self-Efficacy 90-Day Re-eval Assessment We would like to know how confident you are in doing certain activities. Please select your confidence level for:: Select your confidence level for the following using the scale 1-10 where 1 is not at all confident and 10 is totally confident. Your score is the average of all 6 responses. Fatigue: How confident are you that you can keep the fatigue caused by your disease from interfering with the things you want to do? Select Number: 8 Physical Discomfort or Pain: How confident are you that you can keep the physical discomfort or pain of your disease from interfering with the things you want to do? Select Number: 9 Emotional Distress: How confident are you that you can keep the emotional distress caused by your disease from interfering with the things you want to do? Select Number: 10 Other Symptoms or Health Problems: How confident are you that you can keep other symptoms or health problems from interfering with the things you want to do? Select Number: 9 Different Tasks and Activities: How confident are you that you can do the different tasks and activities needed to manage your health condition so as to reduce your need to see a doctor? Select Number: 10 Medication: How confident are you that you can do things other than just taking medication to reduce how much your illness affects your everyday life? Select Number: 10 Total Score:: 9
[2019-05-24 07:09] VITALS: BP 122/40; BP 148/50; BMI 34.5
== END 2019-05-23 23:59 ==
LOC: CR 13:00
PROVIDERS: Family Provider Family Medicine; PCP Family Medicine; Referring Provider Internal Medicine Cardiovascular Disease; Visit Provider Internal Medicine Cardiovascular Disease
DX: I25.10 Atherosclerotic heart disease of native coronary artery without angina pectoris (principal); Z95.5 Presence of coronary angioplasty implant and graft
CPT/HCPCS: 93798

== ENCOUNTER → 2020-02-29 13:26 | Outpatient (CLI) | payer MEDICARE, SELFPAY ==
[2019-05-24 07:09] VITALS: BMI 34.5
[2020-01-05 11:42] VITALS: BMI 35.2
--- NOTE | 2020-02-29 13:28 | CDU_ITS ---
Reason For Study: Carotid stenosis Rt. Velocities/BP Lt. Velocities/BP Prox CCA 81.2/8.2 cm/sec. Prox CCA 83.9/9 cm/sec. Mid CCA 74.7/8.2 cm/sec. Mid CCA 60.8/9.1 cm/sec. Dist CCA 51.3/5.6 cm/sec. Dist CCA 56.4/9.1 cm/sec. Prox ICA 59.7/9.1 cm/sec. Prox ICA 37.2/6.5 cm/sec. Mid ICA 132.1/18.8 cm/sec. Mid ICA 179.5/16.3 cm/sec. Dist ICA 99.2/15.2 cm/sec. Dist ICA 97.6/11.7 cm/sec. Rt. ICA/CCA = 1.8. Lt. ICA/CCA = 3.0. Prox ECA 78.4 cm/sec. Prox ECA 77.7 cm/sec. Rt. Vert. 54.2/10.2 cm/sec. Lt. Vert. 54.2/10.2. cm/sec. Right Extracranial There is heterogeneous, irregular atherosclerotic plaque noted in the right common carotid artery. There is heterogeneous, irregular atherosclerotic plaque noted in the right internal carotid artery. There is heterogeneous, smooth atherosclerotic plaque noted in the right external carotid artery. Antegrade flow is noted in the right vertebral artery. Left Extracranial There is heterogeneous, smooth atherosclerotic plaque noted in the left common carotid artery. There is homogeneous, smooth atherosclerotic plaque noted in the left internal carotid artery. Left ICA dives at mid. There is homogeneous, smooth atherosclerotic plaque noted in the left external carotid artery. Antegrade flow is noted in the left vertebral artery. Procedure Carotid Duplex [id number]. This is a Carotid Duplex examination using B-mode, color flow and specral Doppler. Exam performed in department. Interpretation Summary Moderate (50-69%) stenosis right extracranial internal carotid. Moderate (50-69%) stenosis left extracranial internal carotid. Flow within the vertebral arteries is antegrade bilaterally. Ordering Physician: Eric Moyer Referring Physician: Carson Stone Performed By: Zuly Pizarro RVT
== END ==
PROVIDERS: PCP Family Medicine; Referring Provider Surgery Vascular Surgery; Visit Provider Surgery Vascular Surgery
DX: I65.23 Occlusion and stenosis of bilateral carotid arteries (principal)
CPT/HCPCS: 93880

== ENCOUNTER → 2020-05-03 08:01 | Outpatient (CLI) | payer MEDICARE, SELFPAY ==
[2019-05-24 07:09] VITALS: BMI 34.5
[2020-01-05 11:42] VITALS: BMI 35.2
[2020-05-03 10:27] LABS: Hemoglobin A1c 7.3 % (3.8-5.6)
[2020-05-03 10:28] LABS: Vitamin B12 584 pg/mL (211-911); Vitamin D,25 Hydroxy 30.7 ng/mL
[2020-05-03 10:53] LABS: AST(SGOT) 24 U/L (15-37); Alanine Aminotransfer ALT/SGPT 29 U/L (16-61); Albumin, Serum 3.6 g/dL (3.2-5.0); Alkaline Phosphatase 87 U/L (45-117); Anion Gap 9 (5-15); BUN 24 mg/dL (7-18); BUN/Creat Ratio 19.2 RATIO (10-20); Calcium,Total 9.3 mg/dL (8.5-10.1); Chloride 103 mmol/L (98-107); Cholesterol 144 mg/dL (200); Creatinine, Serum 1.25 mg/dL (0.70-1.30); EST Glomerular Filtration Rate 58 mL/min (>60); Est Glom Filt Rate - Afr Amer 71 mL/min (>60); Globulin 3.7 g/dL (2.2-4.2); Glucose 166 mg/dL (74-106); High Density Lipoprotein 38 mg/dL; Potassium 3.9 mmol/L (3.5-5.1); Protein, Total 7.3 g/dL (6.4-8.2); Sodium Level 140 mmol/L (136-145); Thyroid Stim Hormone (TSH) 1.73 uIU/mL (0.358-3.74); Triglycerides 189 mg/dL; Very Low Density Lipoprotein 38 mg/dL (5-40)
[2020-05-03 11:18] LABS: Microalbumin,Random Urine 28.6 mg/L (NO RANGE EST.)
== END ==
PROVIDERS: PCP Family Medicine; Referring Provider Family Medicine; Visit Provider Family Medicine
DX: E11.9 Type 2 diabetes mellitus without complications (principal); G57.93 Unspecified mononeuropathy of bilateral lower limbs
CPT/HCPCS: 36415; 80053; 80061; 82043; 82306; 82570; 82607; 83036; 84443

== ENCOUNTER → 2020-06-25 14:01 | Outpatient (CLI) | payer MEDICARE, SELFPAY ==
[2019-05-24 07:09] VITALS: BMI 34.5
[2020-06-25 13:14] VITALS: BMI 34.9
[2020-06-25 15:49] LABS: Absolute Lymphocyte Count 3.23 X10^3/uL (0.83-4.51); Absolute Neutrophil Count 4.2 X10^3/uL (2.0-7.7); Basophil# 0.08 X10^3/uL; Basophil% 0.9 % (0-1); Eosinophil# 0.23 X10^3/uL; Eosinophils% 2.6 % (0-5); Hematocrit 44.2 % (40-54); Hemoglobin 14.6 g/dL (13.0-16.5); Lymphocyte # 3.23 X10^3/ul (0.83-4.51); Mean Corpuscular Hgb 31.8 pg (27.0-32.0); Mean Corpuscular Volume 96.3 fL (80-94); Mean Platelet Vol. 11.4 fl (6.2-12.0); Monocyte# 0.97 X10^3/uL; Monocyte% 11.1 % (0-10); NRBC Flagged by Analyzer 0 % (0-5); Neutrophil # 4.18 X10^3/uL (2.7-7.7); Neutrophil % 47.9 % (47-70); Platelet Count 240 K/mm3 (150-450); RBC Distribution Width CV 12.7 % (11.6-14.6); RBC Distribution Width SD 45.2 fl (35.1-43.9); Red Blood Count 4.59 M/mm3 (4.6-6.2); White Blood Count 8.7 K/mm3 (4.4-11.0)
[2020-06-25 16:34] LABS: Anion Gap 5 (5-15); BNP,B-Type NATRIURETIC PEPTIDE 189.1 pg/mL (0-100); BUN 29 mg/dL (7-18); BUN/Creat Ratio 21.8 RATIO (10-20); Calcium,Total 9.8 mg/dL (8.5-10.1); Chloride 102 mmol/L (98-107); Creatinine, Serum 1.33 mg/dL (0.70-1.30); EST Glomerular Filtration Rate 54 mL/min (>60); Est Glom Filt Rate - Afr Amer 66 mL/min (>60); Glucose 137 mg/dL (74-106); Potassium 4.2 mmol/L (3.5-5.1); Sodium Level 136 mmol/L (136-145)
== END ==
PROVIDERS: PCP Family Medicine; Referring Provider Nurse Practitioner Family; Visit Provider Nurse Practitioner Family
DX: R06.00 Dyspnea, unspecified (principal); I25.10 Atherosclerotic heart disease of native coronary artery without angina pectoris; I65.22 Occlusion and stenosis of left carotid artery; I10 Essential (primary) hypertension; E78.5 Hyperlipidemia, unspecified; Z95.5 Presence of coronary angioplasty implant and graft
CPT/HCPCS: 36415; 80048; 83880; 85025

== ENCOUNTER → 2020-11-08 13:29 | Outpatient (CLI) | payer MEDICARE, SELFPAY ==
[2019-05-24 07:09] VITALS: BMI 34.5
[2020-11-08 15:19] LABS: Hemoglobin A1c 7.9 % (3.8-5.6)
[2020-11-08 15:38] LABS: ALB/GLOB Ratio 0.9 RATIO (0.9-2.4); AST(SGOT) 25 U/L (15-37); Alanine Aminotransfer ALT/SGPT 33 U/L (16-61); Albumin, Serum 3.5 g/dL (3.2-5.0); Alkaline Phosphatase 83 U/L (45-117); Anion Gap 7 (5-15); BUN 27 mg/dL (7-18); BUN/Creat Ratio 19.9 RATIO (10-20); Calcium,Total 9.5 mg/dL (8.5-10.1); Chloride 103 mmol/L (98-107); Creatinine, Serum 1.36 mg/dL (0.70-1.30); EST Glomerular Filtration Rate 53 mL/min (>60); Est Glom Filt Rate - Afr Amer 64 mL/min (>60); Globulin 3.9 g/dL (2.2-4.2); Glucose 153 mg/dL (74-106); Potassium 4.2 mmol/L (3.5-5.1); Protein, Total 7.4 g/dL (6.4-8.2); Sodium Level 139 mmol/L (136-145)
== END ==
PROVIDERS: PCP Family Medicine; Referring Provider Family Medicine; Visit Provider Family Medicine
DX: E11.9 Type 2 diabetes mellitus without complications (principal)
CPT/HCPCS: 36415; 80053; 83036

== ENCOUNTER 2021-05-19 08:06 | Outpatient (CLI) | payer MEDICARE, SELFPAY ==
[2019-05-24 07:09] VITALS: BMI 34.5
[2021-05-19 10:13] LABS: Anion Gap 8 (5-15); BUN 32 mg/dL (7-18); BUN/Creat Ratio 23.5 RATIO (10-20); Chloride 102 mmol/L (98-107); Cholesterol 143 mg/dL (200); Creatinine, Serum 1.36 mg/dL (0.70-1.30); EST Glomerular Filtration Rate 53 mL/min (>60); Est Glom Filt Rate - Afr Amer 64 mL/min (>60); Glucose 203 mg/dL (74-106); High Density Lipoprotein 36 mg/dL; Sodium Level 139 mmol/L (136-145); Triglycerides 191 mg/dL; Very Low Density Lipoprotein 38 mg/dL (5-40)
== END 2021-05-19 23:59 | disposition home or self-care (01) ==
LOC: MFPLAB 08:07
PROVIDERS: PCP Family Medicine; Visit Provider Family Medicine
DX: E78.5 Hyperlipidemia, unspecified (principal)
CPT/HCPCS: 36415; 80048; 80061

== ENCOUNTER → 2021-11-03 | Outpatient (CLI) | payer MEDICARE, SELFPAY ==
[2019-05-24 07:09] VITALS: BMI 34.5
[2021-11-03 10:40] LABS: Anion Gap 7 (5-15); BUN 28 mg/dL (7-18); BUN/Creat Ratio 19.9 RATIO (10-20); Calcium,Total 9.7 mg/dL (8.5-10.1); Chloride 102 mmol/L (98-107); Cholesterol 141 mg/dL (200); Creatinine, Serum 1.41 mg/dL (0.70-1.30); EST Glomerular Filtration Rate 51 mL/min (>60); Est Glom Filt Rate - Afr Amer 61 mL/min (>60); Glucose 182 mg/dL (74-106); High Density Lipoprotein 38 mg/dL; Potassium 4.1 mmol/L (3.5-5.1); Sodium Level 138 mmol/L (136-145); Triglycerides 185 mg/dL; Very Low Density Lipoprotein 37 mg/dL (5-40)
[2021-11-03 16:10] LABS: Xtra Tube EP Lab EXTRA TUBE
== END | disposition home or self-care (01) ==
LOC: MFPLAB 08:06
PROVIDERS: PCP Family Medicine; Visit Provider Family Medicine
DX: I10 Essential (primary) hypertension (principal)
CPT/HCPCS: 36415; 80048; 80061

== ENCOUNTER → 2021-11-17 | Outpatient (CLI) | payer MEDICARE, SELFPAY ==
[2019-05-24 07:09] VITALS: BMI 34.5
[2021-11-17 17:58] LABS: Anion Gap 10 (5-15); BUN 28 mg/dL (7-18); BUN/Creat Ratio 21.1 RATIO (10-20); Calcium,Total 9.5 mg/dL (8.5-10.1); Chloride 101 mmol/L (98-107); Creatinine, Serum 1.33 mg/dL (0.70-1.30); EST Glomerular Filtration Rate 54 mL/min (>60); Est Glom Filt Rate - Afr Amer 65 mL/min (>60); Glucose 125 mg/dL (74-106); Potassium 4.2 mmol/L (3.5-5.1); Sodium Level 137 mmol/L (136-145)
== END | disposition home or self-care (01) ==
LOC: MFPLAB 14:25
PROVIDERS: PCP Family Medicine; Referring Provider Family Medicine; Visit Provider Family Medicine
DX: E11.9 Type 2 diabetes mellitus without complications (principal)
CPT/HCPCS: 36415; 80048

== ENCOUNTER → 2022-06-03 | Outpatient (CLI) | payer MEDICARE, SELFPAY ==
[2019-05-24 07:09] VITALS: BMI 34.5
--- NOTE | 2022-06-03 13:30 | CDU_ITS ---
Reason For Study: Carotid Stenosis Rt. Velocities/BP Lt. Velocities/BP Prox CCA 64.4/4.0 cm/sec. Prox CCA 106.0/9.0 cm/sec. Mid CCA 84.2/9.5 cm/sec. Mid CCA 76.5/9.0 cm/sec. Dist CCA 62.2/7.3 cm/sec. Dist CCA 63.0/9.0 cm/sec. Prox ICA 111.3/17.9 cm/sec. Prox ICA 69.2/7.2 cm/sec. Mid ICA 95.5/13.3 cm/sec. Mid ICA 169.7/22.6 cm/sec. Dist ICA 108.5/11.4 cm/sec. Dist ICA 104.8/11.8 cm/sec. Rt. ICA/CCA = 1.3. Lt. ICA/CCA = 2.2. Prox ECA 76.8/6.0 cm/sec. Prox ECA 106.3/6.9 cm/sec. Rt. Vert. 33.9/6.8 cm/sec. Lt. Vert. 48.7/6.9 cm/sec. Right Extracranial There is heterogeneous, irregular atherosclerotic plaque noted in the right common carotid artery. There is heterogeneous, irregular atherosclerotic plaque noted in the right internal carotid artery. There is heterogeneous, irregular atherosclerotic plaque noted in the right external carotid artery. Antegrade flow is noted in the right vertebral artery. Left Extracranial There is homogeneous, irregular atherosclerotic plaque noted in the left common carotid artery. There is heterogeneous, irregular atherosclerotic plaque noted in the left internal carotid artery. There is heterogeneous, irregular atherosclerotic plaque noted in the left external carotid artery. Antegrade flow is noted in the left vertebral artery. Procedure Carotid Duplex [id number]. This is a Carotid Duplex examination using B-mode, color flow and specral Doppler. The exam was diagnostic. Exam performed in department. VL/Carotid Duplex Ultrasound Interpretation Summary Mild (<50%) stenosis right extracranial internal carotid. Moderate (50-69%) cristal nosis left extracranial internal carotid. Flow within the vertebral arteries is antegrade bilaterally. Ordering Physician: Eric Moyer Referring Physician: Ariel Keys Performed By: Brandon Chilel RVT
== END | disposition home or self-care (01) ==
LOC: CVS 13:28
PROVIDERS: PCP Family Medicine; Referring Provider Surgery Vascular Surgery; Visit Provider Surgery Vascular Surgery
DX: I65.23 Occlusion and stenosis of bilateral carotid arteries (principal)
CPT/HCPCS: 93880

== ENCOUNTER → 2022-08-17 | Outpatient (CLI) | payer MEDICARE, SELFPAY ==
[2019-05-24 07:09] VITALS: BMI 34.5
[2022-08-17 15:51] LABS: Anion Gap 6 (5-15); BUN 29 mg/dL (7-18); Calcium,Total 9.5 mg/dL (8.5-10.1); Chloride 105 mmol/L (98-107); Cholesterol 131 mg/dL (200); Creatinine, Serum 1.53 mg/dL (0.70-1.30); EST Glomerular Filtration Rate 46 mL/min (>60); Est Glom Filt Rate - Afr Amer 56 mL/min (>60); Glucose 82 mg/dL (74-106); High Density Lipoprotein 33 mg/dL; Potassium 4.2 mmol/L (3.5-5.1); Sodium Level 140 mmol/L (136-145); Triglycerides 231 mg/dL; Very Low Density Lipoprotein 46 mg/dL (5-40)
== END | disposition home or self-care (01) ==
LOC: MFPLAB 14:00
PROVIDERS: PCP Family Medicine; Visit Provider Family Medicine
DX: E11.9 Type 2 diabetes mellitus without complications (principal)
CPT/HCPCS: 36415; 80048; 80061

== ENCOUNTER → 2022-09-07 | Outpatient (REF) | payer MEDICARE, SELFPAY ==
[2019-05-24 07:09] VITALS: BMI 34.5
[2022-09-07 08:49] LABS: Absolute Lymphocyte Count 3.56 X10^3/uL (0.83-4.51); Absolute Neutrophil Count 5.5 X10^3/uL (2.0-7.7); Basophil# 0.09 X10^3/uL; Basophil% 0.8 % (0-1); Eosinophil# 0.26 X10^3/uL; Eosinophils% 2.4 % (0-5); Hematocrit 41.7 % (40-54); Lymphocyte # 3.56 X10^3/ul (0.83-4.51); Lymphocyte % 33.5 % (19-41); Mean Corp Hgb Conc 33.6 g/dL (32-36); Mean Corpuscular Hgb 32.7 pg (27.0-32.0); Mean Corpuscular Volume 97.4 fL (80-94); Mean Platelet Vol. 11.2 fl (6.2-12.0); Monocyte% 11.3 % (0-10); NRBC Flagged by Analyzer 0 % (0-5); Neutrophil # 5.49 X10^3/uL (2.7-7.7); Neutrophil % 51.6 % (47-70); Platelet Count 232 K/mm3 (150-450); RBC Distribution Width CV 13.1 % (11.6-14.6); RBC Distribution Width SD 46.7 fl (35.1-43.9); Red Blood Count 4.28 M/mm3 (4.6-6.2); White Blood Count 10.6 K/mm3 (4.4-11.0)
[2022-09-07 09:10] LABS: Vitamin B12 394 pg/mL (211-911)
[2022-09-07 09:18] LABS: ALB/GLOB Ratio 0.8 RATIO (0.9-2.4); AST(SGOT) 33 U/L (15-37); Alanine Aminotransfer ALT/SGPT 33 U/L (16-61); Albumin, Serum 3.4 g/dL (3.2-5.0); Alkaline Phosphatase 84 U/L (45-117); Anion Gap 6 (5-15); BUN 31 mg/dL (7-18); BUN/Creat Ratio 20.4 RATIO (10-20); Chloride 104 mmol/L (98-107); Creatinine, Serum 1.52 mg/dL (0.70-1.30); EST Glomerular Filtration Rate 46 mL/min (>60); Est Glom Filt Rate - Afr Amer 56 mL/min (>60); Globulin 4.2 g/dL (2.2-4.2); Glucose 101 mg/dL (74-106); Potassium 3.7 mmol/L (3.5-5.1); Protein, Total 7.6 g/dL (6.4-8.2); Sodium Level 138 mmol/L (136-145); Thyroid Stim Hormone (TSH) 1.92 uIU/mL (0.358-3.74)
[2022-09-07 09:28] LABS: Hemoglobin A1c 6.3 % (3.8-5.6)
== END ==
LOC: OLS.WHLTSB 05:00
PROVIDERS: PCP Family Medicine; Visit Provider Internal Medicine
DX: R53.83 Other fatigue (principal); Z79.899 Other long term (current) drug therapy
CPT/HCPCS: 36415; 80053; 82607; 83036; 84443; 85025

== ENCOUNTER → 2022-09-21 | Outpatient (REF) | payer MEDICARE, SELFPAY ==
[2019-05-24 07:09] VITALS: BMI 34.5
[2022-09-21 08:41] LABS: Absolute Lymphocyte Count 3.28 X10^3/uL (0.83-4.51); Absolute Neutrophil Count 4.3 X10^3/uL (2.0-7.7); Basophil# 0.09 X10^3/uL; Eosinophil# 0.32 X10^3/uL; Eosinophils% 3.5 % (0-5); Hematocrit 39.1 % (40-54); Hemoglobin 12.9 g/dL (13.0-16.5); Lymphocyte # 3.28 X10^3/ul (0.83-4.51); Lymphocyte % 35.8 % (19-41); Mean Corpuscular Hgb 32.3 pg (27.0-32.0); Mean Platelet Vol. 11.3 fl (6.2-12.0); Monocyte# 1.13 X10^3/uL; Monocyte% 12.3 % (0-10); NRBC Flagged by Analyzer 0 % (0-5); Neutrophil # 4.32 X10^3/uL (2.7-7.7); Neutrophil % 47.1 % (47-70); Platelet Count 213 K/mm3 (150-450); RBC Distribution Width CV 12.8 % (11.6-14.6); RBC Distribution Width SD 46.2 fl (35.1-43.9); Red Blood Count 3.99 M/mm3 (4.6-6.2); White Blood Count 9.2 K/mm3 (4.4-11.0)
[2022-09-21 08:49] LABS: Anion Gap 3 (5-15); BUN 28 mg/dL (7-18); BUN/Creat Ratio 19.6 RATIO (10-20); Chloride 104 mmol/L (98-107); Creatinine, Serum 1.43 mg/dL (0.70-1.30); EST Glomerular Filtration Rate 50 mL/min (>60); Est Glom Filt Rate - Afr Amer 60 mL/min (>60); Glucose 67 mg/dL (74-106); Potassium 3.6 mmol/L (3.5-5.1); Sodium Level 139 mmol/L (136-145)
== END ==
LOC: OLS.WHLTSB 05:00
PROVIDERS: PCP Family Medicine; Visit Provider Internal Medicine
DX: E11.9 Type 2 diabetes mellitus without complications (principal)
CPT/HCPCS: 36415; 80048; 85025

== ENCOUNTER → 2022-11-02 | Outpatient (REF) | payer MEDICARE, SELFPAY ==
[2019-05-24 07:09] VITALS: BMI 34.5
[2022-11-02 08:02] LABS: Absolute Lymphocyte Count 2.71 X10^3/uL (0.83-4.51); Absolute Neutrophil Count 5.7 X10^3/uL (2.0-7.7); Basophil# 0.07 X10^3/uL; Basophil% 0.7 % (0-1); Eosinophil# 0.27 X10^3/uL; Eosinophils% 2.7 % (0-5); Hematocrit 40.9 % (40-54); Hemoglobin 13.3 g/dL (13.0-16.5); Lymphocyte # 2.71 X10^3/ul (0.83-4.51); Lymphocyte % 27.5 % (19-41); Mean Corp Hgb Conc 32.5 g/dL (32-36); Mean Corpuscular Hgb 31.7 pg (27.0-32.0); Mean Corpuscular Volume 97.6 fL (80-94); Mean Platelet Vol. 11.6 fl (6.2-12.0); Monocyte# 1.06 X10^3/uL; Monocyte% 10.8 % (0-10); NRBC Flagged by Analyzer 0 % (0-5); Neutrophil % 57.9 % (47-70); Platelet Count 197 K/mm3 (150-450); RBC Distribution Width SD 46.1 fl (35.1-43.9); Red Blood Count 4.19 M/mm3 (4.6-6.2); White Blood Count 9.9 K/mm3 (4.4-11.0)
[2022-11-02 08:14] LABS: Anion Gap 6 (5-15); BUN 30 mg/dL (7-18); BUN/Creat Ratio 19.2 RATIO (10-20); Calcium,Total 9.2 mg/dL (8.5-10.1); Chloride 103 mmol/L (98-107); Creatinine, Serum 1.56 mg/dL (0.70-1.30); EST Glomerular Filtration Rate 45 mL/min (>60); Est Glom Filt Rate - Afr Amer 54 mL/min (>60); Glucose 47 mg/dL (74-106); Potassium 3.5 mmol/L (3.5-5.1); Sodium Level 139 mmol/L (136-145)
== END ==
LOC: OLS.WHLTSB 04:00
PROVIDERS: PCP Family Medicine; Referring Provider Internal Medicine; Visit Provider Internal Medicine
DX: E11.9 Type 2 diabetes mellitus without complications (principal)
CPT/HCPCS: 36415; 80048; 85025

== ENCOUNTER → 2022-11-30 | Outpatient (REF) | payer MEDICARE, SELFPAY ==
[2019-05-24 07:09] VITALS: BMI 34.5
[2022-11-30 09:16] LABS: Absolute Lymphocyte Count 2.97 X10^3/uL (0.83-4.51); Absolute Neutrophil Count 3.9 X10^3/uL (2.0-7.7); Basophil# 0.07 X10^3/uL; Basophil% 0.9 % (0-1); Eosinophil# 0.31 X10^3/uL; Eosinophils% 3.8 % (0-5); Hemoglobin 13.1 g/dL (13.0-16.5); Lymphocyte # 2.97 X10^3/ul (0.83-4.51); Lymphocyte % 36.4 % (19-41); Mean Corp Hgb Conc 32.8 g/dL (32-36); Mean Corpuscular Hgb 32.4 pg (27.0-32.0); Mean Platelet Vol. 11.5 fl (6.2-12.0); Monocyte# 0.91 X10^3/uL; Monocyte% 11.1 % (0-10); NRBC Flagged by Analyzer 0 % (0-5); Neutrophil # 3.87 X10^3/uL (2.7-7.7); Neutrophil % 47.3 % (47-70); Platelet Count 210 K/mm3 (150-450); RBC Distribution Width CV 13.1 % (11.6-14.6); RBC Distribution Width SD 47.5 fl (35.1-43.9); Red Blood Count 4.04 M/mm3 (4.6-6.2); White Blood Count 8.2 K/mm3 (4.4-11.0)
[2022-11-30 09:55] LABS: AST(SGOT) 25 U/L (15-37); Alanine Aminotransfer ALT/SGPT 33 U/L (16-61); Albumin, Serum 3.1 g/dL (3.2-5.0); Alkaline Phosphatase 114 U/L (45-117); Anion Gap 4 (5-15); BUN 31 mg/dL (7-18); BUN/Creat Ratio 20.8 RATIO (10-20); Bilirubin, Direct 0.13 mg/dL (0.00-0.30); Calcium,Total 8.8 mg/dL (8.5-10.1); Chloride 103 mmol/L (98-107); Cholesterol 125 mg/dL (200); Creatinine, Serum 1.49 mg/dL (0.70-1.30); EST Glomerular Filtration Rate 47 mL/min (>60); Est Glom Filt Rate - Afr Amer 57 mL/min (>60); Globulin 3.5 g/dL (2.2-4.2); Glucose 74 mg/dL (74-106); High Density Lipoprotein 37 mg/dL; Potassium 3.9 mmol/L (3.5-5.1); Protein, Total 6.6 g/dL (6.4-8.2); Sodium Level 139 mmol/L (136-145); Triglycerides 139 mg/dL; Very Low Density Lipoprotein 28 mg/dL (5-40)
[2022-11-30 11:35] LABS: Hemoglobin A1c 6.1 % (3.8-5.6)
== END ==
LOC: OLS.WHLTSB 04:00
PROVIDERS: PCP Family Medicine; Referring Provider Internal Medicine; Visit Provider Internal Medicine
DX: E11.9 Type 2 diabetes mellitus without complications (principal); R53.83 Other fatigue; E56.9 Vitamin deficiency, unspecified; E78.5 Hyperlipidemia, unspecified; F03.90 Unspecified dementia, unspecified severity, without behavioral disturbance, psychotic disturbance, mood disturbance, and anxiety
CPT/HCPCS: 36415; 80048; 80061; 80076; 83036; 85025

== ENCOUNTER → 2023-01-04 | Outpatient (REF) | payer MEDICARE, SELFPAY ==
[2019-05-24 07:09] VITALS: BMI 34.5
[2023-01-04 08:41] LABS: Absolute Lymphocyte Count 3.64 X10^3/uL (0.83-4.51); Absolute Neutrophil Count 4.8 X10^3/uL (2.0-7.7); Basophil# 0.08 X10^3/uL; Basophil% 0.8 % (0-1); Eosinophil# 0.38 X10^3/uL; Eosinophils% 3.8 % (0-5); Hemoglobin 13.5 g/dL (13.0-16.5); Lymphocyte # 3.64 X10^3/ul (0.83-4.51); Mean Corp Hgb Conc 32.1 g/dL (32-36); Mean Corpuscular Hgb 31.6 pg (27.0-32.0); Mean Corpuscular Volume 98.4 fL (80-94); Mean Platelet Vol. 11.3 fl (6.2-12.0); Monocyte# 1.16 X10^3/uL; Monocyte% 11.5 % (0-10); NRBC Flagged by Analyzer 0 % (0-5); Neutrophil # 4.81 X10^3/uL (2.7-7.7); Neutrophil % 47.4 % (47-70); Platelet Count 231 K/mm3 (150-450); RBC Distribution Width CV 13.7 % (11.6-14.6); RBC Distribution Width SD 50.1 fl (35.1-43.9); Red Blood Count 4.27 M/mm3 (4.6-6.2); White Blood Count 10.1 K/mm3 (4.4-11.0)
[2023-01-04 09:15] LABS: Anion Gap 8 (5-15); BUN 32 mg/dL (7-18); BUN/Creat Ratio 20.6 RATIO (10-20); Calcium,Total 9.3 mg/dL (8.5-10.1); Chloride 102 mmol/L (98-107); Creatinine, Serum 1.55 mg/dL (0.70-1.30); EST Glomerular Filtration Rate 45 mL/min (>60); Est Glom Filt Rate - Afr Amer 55 mL/min (>60); Glucose 95 mg/dL (74-106); Potassium 3.8 mmol/L (3.5-5.1); Sodium Level 139 mmol/L (136-145)
== END ==
LOC: OLS.WHLTSB 04:00
PROVIDERS: PCP Family Medicine; Referring Provider Internal Medicine; Visit Provider Internal Medicine
DX: E11.9 Type 2 diabetes mellitus without complications (principal); R53.83 Other fatigue
CPT/HCPCS: 36415; 80048; 85025

== ENCOUNTER → 2023-02-01 | Outpatient (REF) | payer MEDICARE, SELFPAY ==
[2023-01-27 09:11] VITALS: BMI 34.5
[2023-02-01 09:09] LABS: Absolute Neutrophil Count 5.6 X10^3/uL (2.0-7.7); Basophil# 0.08 X10^3/uL; Basophil% 0.8 % (0-1); Eosinophil# 0.39 X10^3/uL; Eosinophils% 3.9 % (0-5); Hematocrit 39.4 % (40-54); Hemoglobin 12.8 g/dL (13.0-16.5); Lymphocyte % 24.9 % (19-41); Mean Corp Hgb Conc 32.5 g/dL (32-36); Mean Corpuscular Hgb 31.7 pg (27.0-32.0); Mean Corpuscular Volume 97.5 fL (80-94); Mean Platelet Vol. 10.9 fl (6.2-12.0); Monocyte# 1.37 X10^3/uL; Monocyte% 13.6 % (0-10); NRBC Flagged by Analyzer 0 % (0-5); Neutrophil # 5.64 X10^3/uL (2.7-7.7); Neutrophil % 56.2 % (47-70); Platelet Count 249 K/mm3 (150-450); RBC Distribution Width CV 13.5 % (11.6-14.6); RBC Distribution Width SD 48.2 fl (35.1-43.9); Red Blood Count 4.04 M/mm3 (4.6-6.2)
[2023-02-01 09:25] LABS: Anion Gap 5 (5-15); BUN 35 mg/dL (7-18); BUN/Creat Ratio 24.8 RATIO (10-20); Calcium,Total 9.5 mg/dL (8.5-10.1); Chloride 102 mmol/L (98-107); Creatinine, Serum 1.41 mg/dL (0.70-1.30); EST Glomerular Filtration Rate 50 mL/min (>60); Est Glom Filt Rate - Afr Amer 61 mL/min (>60); Glucose 88 mg/dL (74-106); Potassium 4.2 mmol/L (3.5-5.1); Sodium Level 138 mmol/L (136-145)
== END ==
LOC: OLS.WHLTSB 05:00
PROVIDERS: PCP Family Medicine; Visit Provider Internal Medicine
DX: E11.9 Type 2 diabetes mellitus without complications (principal)
CPT/HCPCS: 36415; 80048; 85025

== ENCOUNTER → 2023-03-01 | Outpatient (REF) | payer MEDICARE, SELFPAY ==
[2023-01-27 09:11] VITALS: BMI 34.5
[2023-03-01 08:43] LABS: Absolute Lymphocyte Count 3.19 X10^3/uL (0.83-4.51); Absolute Neutrophil Count 3.2 X10^3/uL (2.0-7.7); Basophil# 0.07 X10^3/uL; Basophil% 0.9 % (0-1); Eosinophils% 3.9 % (0-5); Hematocrit 37.3 % (40-54); Hemoglobin 12.1 g/dL (13.0-16.5); Lymphocyte # 3.19 X10^3/ul (0.83-4.51); Lymphocyte % 41.2 % (19-41); Mean Corp Hgb Conc 32.4 g/dL (32-36); Mean Corpuscular Hgb 31.9 pg (27.0-32.0); Mean Corpuscular Volume 98.4 fL (80-94); Monocyte# 0.98 X10^3/uL; Monocyte% 12.6 % (0-10); NRBC Flagged by Analyzer 0 % (0-5); Neutrophil # 3.18 X10^3/uL (2.7-7.7); Platelet Count 231 K/mm3 (150-450); RBC Distribution Width CV 13.2 % (11.6-14.6); RBC Distribution Width SD 47.9 fl (35.1-43.9); Red Blood Count 3.79 M/mm3 (4.6-6.2); White Blood Count 7.8 K/mm3 (4.4-11.0)
[2023-03-01 08:53] LABS: AST(SGOT) 33 U/L (15-37); Alanine Aminotransfer ALT/SGPT 34 U/L (16-61); Alkaline Phosphatase 92 U/L (45-117); Anion Gap 5 (5-15); BUN 39 mg/dL (7-18); Bilirubin, Direct 0.13 mg/dL (0.00-0.30); Calcium,Total 9.4 mg/dL (8.5-10.1); Chloride 105 mmol/L (98-107); Cholesterol 113 mg/dL (200); Creatinine, Serum 1.56 mg/dL (0.70-1.30); EST Glomerular Filtration Rate 45 mL/min (>60); Est Glom Filt Rate - Afr Amer 54 mL/min (>60); Globulin 3.8 g/dL (2.2-4.2); Glucose 65 mg/dL (74-106); High Density Lipoprotein 30 mg/dL; Protein, Total 6.8 g/dL (6.4-8.2); Sodium Level 140 mmol/L (136-145); Triglycerides 160 mg/dL; Very Low Density Lipoprotein 32 mg/dL (5-40)
[2023-03-01 11:00] LABS: Hemoglobin A1c 5.9 % (3.8-5.6)
== END ==
LOC: OLS.WHLTSB 05:00
PROVIDERS: PCP Family Medicine; Visit Provider Internal Medicine
DX: E11.9 Type 2 diabetes mellitus without complications (principal); E78.5 Hyperlipidemia, unspecified; R53.83 Other fatigue; F03.90 Unspecified dementia, unspecified severity, without behavioral disturbance, psychotic disturbance, mood disturbance, and anxiety
CPT/HCPCS: 36415; 80048; 80061; 80076; 83036; 85025

== ENCOUNTER → 2023-04-05 | Outpatient (REF) | payer MEDICARE, SELFPAY ==
[2023-01-27 09:11] VITALS: BMI 34.5
[2023-04-05 08:25] LABS: Absolute Lymphocyte Count 2.62 X10^3/uL (0.83-4.51); Absolute Neutrophil Count 4.3 X10^3/uL (2.0-7.7); Basophil# 0.07 X10^3/uL; Basophil% 0.8 % (0-1); Eosinophil# 0.27 X10^3/uL; Eosinophils% 3.3 % (0-5); Hemoglobin 12.7 g/dL (13.0-16.5); Lymphocyte # 2.62 X10^3/ul (0.83-4.51); Lymphocyte % 31.8 % (19-41); Mean Corp Hgb Conc 32.6 g/dL (32-36); Mean Corpuscular Hgb 31.8 pg (27.0-32.0); Mean Corpuscular Volume 97.5 fL (80-94); Mean Platelet Vol. 11.1 fl (6.2-12.0); Monocyte# 0.96 X10^3/uL; Monocyte% 11.7 % (0-10); NRBC Flagged by Analyzer 0 % (0-5); Neutrophil # 4.29 X10^3/uL (2.7-7.7); Platelet Count 232 K/mm3 (150-450); RBC Distribution Width CV 12.9 % (11.6-14.6); RBC Distribution Width SD 46.1 fl (35.1-43.9); White Blood Count 8.2 K/mm3 (4.4-11.0)
[2023-04-05 10:41] LABS: Anion Gap 7 (5-15); BUN 32 mg/dL (7-18); BUN/Creat Ratio 21.5 RATIO (10-20); Calcium,Total 9.6 mg/dL (8.5-10.1); Chloride 103 mmol/L (98-107); Creatinine, Serum 1.49 mg/dL (0.70-1.30); EST Glomerular Filtration Rate 47 mL/min (>60); Est Glom Filt Rate - Afr Amer 57 mL/min (>60); Glucose 185 mg/dL (74-106); Potassium 4.2 mmol/L (3.5-5.1); Sodium Level 139 mmol/L (136-145)
== END ==
LOC: OLS.WHLTSB 05:00
PROVIDERS: PCP Family Medicine; Visit Provider Internal Medicine
DX: E11.9 Type 2 diabetes mellitus without complications (principal)
CPT/HCPCS: 36415; 80048; 85025

== ENCOUNTER → 2023-05-03 | Outpatient (REF) | payer MEDICARE, SELFPAY ==
[2023-01-27 09:11] VITALS: BMI 34.5
[2023-05-03 09:06] LABS: Absolute Lymphocyte Count 3.68 X10^3/uL (0.83-4.51); Absolute Neutrophil Count 4.9 X10^3/uL (2.0-7.7); Eosinophil# 0.28 X10^3/uL; Eosinophils% 2.8 % (0-5); Hematocrit 40.1 % (40-54); Hemoglobin 13.1 g/dL (13.0-16.5); Lymphocyte # 3.68 X10^3/ul (0.83-4.51); Lymphocyte % 36.3 % (19-41); Mean Corp Hgb Conc 32.7 g/dL (32-36); Mean Corpuscular Hgb 31.9 pg (27.0-32.0); Mean Corpuscular Volume 97.6 fL (80-94); Mean Platelet Vol. 11.2 fl (6.2-12.0); Monocyte# 1.12 X10^3/uL; Monocyte% 11.1 % (0-10); NRBC Flagged by Analyzer 0 % (0-5); Neutrophil # 4.91 X10^3/uL (2.7-7.7); Neutrophil % 48.4 % (47-70); Platelet Count 215 K/mm3 (150-450); RBC Distribution Width CV 12.7 % (11.6-14.6); RBC Distribution Width SD 45.2 fl (35.1-43.9); Red Blood Count 4.11 M/mm3 (4.6-6.2); White Blood Count 10.1 K/mm3 (4.4-11.0)
[2023-05-03 09:10] LABS: Anion Gap 7 (5-15); BUN 35 mg/dL (7-18); Calcium,Total 9.7 mg/dL (8.5-10.1); Chloride 103 mmol/L (98-107); Creatinine, Serum 1.52 mg/dL (0.70-1.30); EST Glomerular Filtration Rate 46 mL/min (>60); Est Glom Filt Rate - Afr Amer 56 mL/min (>60); Glucose 159 mg/dL (74-106); Potassium 4.2 mmol/L (3.5-5.1); Sodium Level 140 mmol/L (136-145)
== END ==
LOC: OLS.WHLTSB 04:00
PROVIDERS: PCP Family Medicine; Referring Provider Internal Medicine; Visit Provider Internal Medicine
DX: E11.9 Type 2 diabetes mellitus without complications (principal); E78.5 Hyperlipidemia, unspecified
CPT/HCPCS: 36415; 80048; 85025

== ENCOUNTER → 2023-05-31 | Outpatient (REF) | payer MEDICARE, SELFPAY ==
[2023-01-27 09:11] VITALS: BMI 34.5
[2023-05-31 09:17] LABS: Absolute Lymphocyte Count 2.88 X10^3/uL (0.83-4.51); Absolute Neutrophil Count 3.9 X10^3/uL (2.0-7.7); Basophil% 1.2 % (0-1); Eosinophil# 0.27 X10^3/uL; Eosinophils% 3.3 % (0-5); Hematocrit 38.5 % (40-54); Hemoglobin 12.7 g/dL (13.0-16.5); Lymphocyte # 2.88 X10^3/ul (0.83-4.51); Lymphocyte % 34.7 % (19-41); Mean Corpuscular Hgb 32.4 pg (27.0-32.0); Mean Corpuscular Volume 98.2 fL (80-94); Mean Platelet Vol. 11.2 fl (6.2-12.0); Monocyte# 1.09 X10^3/uL; Monocyte% 13.1 % (0-10); NRBC Flagged by Analyzer 0 % (0-5); Neutrophil # 3.92 X10^3/uL (2.7-7.7); Neutrophil % 47.2 % (47-70); Platelet Count 212 K/mm3 (150-450); RBC Distribution Width CV 12.8 % (11.6-14.6); RBC Distribution Width SD 45.9 fl (35.1-43.9); Red Blood Count 3.92 M/mm3 (4.6-6.2); White Blood Count 8.3 K/mm3 (4.4-11.0)
[2023-05-31 10:03] LABS: AST(SGOT) 26 U/L (15-37); Alanine Aminotransfer ALT/SGPT 30 U/L (16-61); Albumin, Serum 3.5 g/dL (3.2-5.0); Alkaline Phosphatase 96 U/L (45-117); Anion Gap 8 (5-15); BUN 37 mg/dL (7-18); BUN/Creat Ratio 25.7 RATIO (10-20); Bilirubin, Direct 0.15 mg/dL (0.00-0.30); Calcium,Total 9.2 mg/dL (8.5-10.1); Chloride 101 mmol/L (98-107); Cholesterol 144 mg/dL (200); Creatinine, Serum 1.44 mg/dL (0.70-1.30); EST Glomerular Filtration Rate 49 mL/min (>60); Est Glom Filt Rate - Afr Amer 60 mL/min (>60); Globulin 3.5 g/dL (2.2-4.2); Glucose 163 mg/dL (74-106); High Density Lipoprotein 41 mg/dL; Potassium 4.4 mmol/L (3.5-5.1); Sodium Level 138 mmol/L (136-145); Triglycerides 205 mg/dL; Very Low Density Lipoprotein 41 mg/dL (5-40)
[2023-05-31 10:59] LABS: Hemoglobin A1c 7.4 % (3.8-5.6)
== END ==
LOC: OLS.WHLTSB 05:00
PROVIDERS: PCP Family Medicine; Visit Provider Internal Medicine
DX: E11.9 Type 2 diabetes mellitus without complications (principal); R53.83 Other fatigue; I25.10 Atherosclerotic heart disease of native coronary artery without angina pectoris
CPT/HCPCS: 36415; 80048; 80061; 80076; 83036; 85025

== ENCOUNTER → 2023-07-05 | Outpatient (REF) | payer MEDICARE, SELFPAY ==
[2023-01-27 09:11] VITALS: BMI 34.5
[2023-07-05 08:33] LABS: Absolute Lymphocyte Count 3.08 X10^3/uL (0.83-4.51); Absolute Neutrophil Count 3.7 X10^3/uL (2.0-7.7); Basophil# 0.09 X10^3/uL; Basophil% 1.1 % (0-1); Eosinophils% 3.6 % (0-5); Hematocrit 38.2 % (40-54); Hemoglobin 12.6 g/dL (13.0-16.5); Lymphocyte # 3.08 X10^3/ul (0.83-4.51); Mean Corpuscular Hgb 32.4 pg (27.0-32.0); Mean Corpuscular Volume 98.2 fL (80-94); Mean Platelet Vol. 11.4 fl (6.2-12.0); Monocyte# 1.11 X10^3/uL; Monocyte% 13.3 % (0-10); NRBC Flagged by Analyzer 0 % (0-5); Neutrophil % 44.5 % (47-70); Platelet Count 203 K/mm3 (150-450); RBC Distribution Width CV 12.5 % (11.6-14.6); RBC Distribution Width SD 44.6 fl (35.1-43.9); Red Blood Count 3.89 M/mm3 (4.6-6.2); White Blood Count 8.3 K/mm3 (4.4-11.0)
[2023-07-05 08:51] LABS: Anion Gap 5 (5-15); BUN 35 mg/dL (7-18); BUN/Creat Ratio 21.7 RATIO (10-20); Calcium,Total 9.4 mg/dL (8.5-10.1); Chloride 101 mmol/L (98-107); Creatinine, Serum 1.61 mg/dL (0.70-1.30); EST Glomerular Filtration Rate 43 mL/min (>60); Est Glom Filt Rate - Afr Amer 52 mL/min (>60); Glucose 161 mg/dL (74-106); Potassium 3.9 mmol/L (3.5-5.1); Sodium Level 136 mmol/L (136-145)
== END ==
LOC: OLS.WHLTSB 04:00
PROVIDERS: PCP Family Medicine; Referring Provider Internal Medicine; Visit Provider Internal Medicine
DX: E11.9 Type 2 diabetes mellitus without complications (principal); E78.5 Hyperlipidemia, unspecified
CPT/HCPCS: 36415; 80048; 85025

== ENCOUNTER → 2023-08-02 | Outpatient (REF) | payer MEDICARE, SELFPAY ==
[2023-01-27 09:11] VITALS: BMI 34.5
[2023-08-02 06:48] LABS: Absolute Lymphocyte Count 3.47 X10^3/uL (0.83-4.51); Absolute Neutrophil Count 4.2 X10^3/uL (2.0-7.7); Basophil# 0.08 X10^3/uL; Basophil% 0.9 % (0-1); Eosinophil# 0.31 X10^3/uL; Eosinophils% 3.4 % (0-5); Hematocrit 40.7 % (40-54); Hemoglobin 13.2 g/dL (13.0-16.5); Lymphocyte # 3.47 X10^3/ul (0.83-4.51); Lymphocyte % 38.2 % (19-41); Mean Corp Hgb Conc 32.4 g/dL (32-36); Mean Corpuscular Hgb 31.7 pg (27.0-32.0); Mean Corpuscular Volume 97.8 fL (80-94); Mean Platelet Vol. 10.8 fl (6.2-12.0); Monocyte# 0.94 X10^3/uL; Monocyte% 10.4 % (0-10); NRBC Flagged by Analyzer 0 % (0-5); Neutrophil # 4.23 X10^3/uL (2.7-7.7); Neutrophil % 46.5 % (47-70); Platelet Count 230 K/mm3 (150-450); RBC Distribution Width CV 12.5 % (11.6-14.6); RBC Distribution Width SD 44.9 fl (35.1-43.9); Red Blood Count 4.16 M/mm3 (4.6-6.2); White Blood Count 9.1 K/mm3 (4.4-11.0)
[2023-08-02 07:29] LABS: Anion Gap 4 (5-15); BUN 37 mg/dL (7-18); BUN/Creat Ratio 25.9 RATIO (10-20); Calcium,Total 9.7 mg/dL (8.5-10.1); Chloride 101 mmol/L (98-107); Creatinine, Serum 1.43 mg/dL (0.70-1.30); EST Glomerular Filtration Rate 50 mL/min (>60); Est Glom Filt Rate - Afr Amer 60 mL/min (>60); Glucose 159 mg/dL (74-106); Potassium 3.7 mmol/L (3.5-5.1); Sodium Level 136 mmol/L (136-145)
== END ==
LOC: OLS.WHLTSB 05:00
PROVIDERS: PCP Family Medicine; Visit Provider Internal Medicine
DX: E11.9 Type 2 diabetes mellitus without complications (principal); E78.5 Hyperlipidemia, unspecified; F03.90 Unspecified dementia, unspecified severity, without behavioral disturbance, psychotic disturbance, mood disturbance, and anxiety
CPT/HCPCS: 36415; 80048; 85025

== ENCOUNTER → 2023-08-30 | Outpatient (REF) | payer MEDICARE, SELFPAY ==
[2023-01-27 09:11] VITALS: BMI 34.5
[2023-08-30 10:03] LABS: Absolute Lymphocyte Count 3.37 X10^3/uL (0.83-4.51); Absolute Neutrophil Count 3.8 X10^3/uL (2.0-7.7); Basophil# 0.08 X10^3/uL; Basophil% 0.9 % (0-1); Eosinophil# 0.26 X10^3/uL; Hematocrit 39.2 % (40-54); Hemoglobin 12.7 g/dL (13.0-16.5); Lymphocyte # 3.37 X10^3/ul (0.83-4.51); Lymphocyte % 39.3 % (19-41); Mean Corp Hgb Conc 32.4 g/dL (32-36); Mean Corpuscular Hgb 31.8 pg (27.0-32.0); Mean Corpuscular Volume 98.2 fL (80-94); Mean Platelet Vol. 11.3 fl (6.2-12.0); Monocyte# 0.99 X10^3/uL; Monocyte% 11.6 % (0-10); NRBC Flagged by Analyzer 0 % (0-5); Neutrophil # 3.83 X10^3/uL (2.7-7.7); Neutrophil % 44.7 % (47-70); Platelet Count 200 K/mm3 (150-450); RBC Distribution Width CV 12.5 % (11.6-14.6); RBC Distribution Width SD 45.4 fl (35.1-43.9); Red Blood Count 3.99 M/mm3 (4.6-6.2); White Blood Count 8.6 K/mm3 (4.4-11.0)
[2023-08-30 10:16] LABS: AST(SGOT) 32 U/L (15-37); Alanine Aminotransfer ALT/SGPT 33 U/L (16-61); Albumin, Serum 3.4 g/dL (3.2-5.0); Alkaline Phosphatase 89 U/L (45-117); Anion Gap 6 (5-15); BUN 40 mg/dL (7-18); BUN/Creat Ratio 25.6 RATIO (10-20); Calcium,Total 9.3 mg/dL (8.5-10.1); Chloride 101 mmol/L (98-107); Cholesterol 145 mg/dL (200); Creatinine, Serum 1.56 mg/dL (0.70-1.30); EST Glomerular Filtration Rate 45 mL/min (>60); Est Glom Filt Rate - Afr Amer 54 mL/min (>60); Globulin 3.7 g/dL (2.2-4.2); Glucose 165 mg/dL (74-106); High Density Lipoprotein 40 mg/dL; Potassium 4.1 mmol/L (3.5-5.1); Protein, Total 7.1 g/dL (6.4-8.2); Sodium Level 138 mmol/L (136-145); Thyroid Stim Hormone (TSH) 1.51 uIU/mL (0.358-3.74); Triglycerides 194 mg/dL; Very Low Density Lipoprotein 39 mg/dL (5-40)
[2023-08-30 10:18] LABS: Vitamin B12 549 pg/mL (211-911); Vitamin D,25 Hydroxy 34.9 ng/mL
[2023-08-30 12:18] LABS: Hemoglobin A1c 7.8 % (3.8-5.6)
== END ==
LOC: OLS.WHLTSB 04:00
PROVIDERS: PCP Family Medicine; Referring Provider Internal Medicine; Visit Provider Internal Medicine
DX: I25.10 Atherosclerotic heart disease of native coronary artery without angina pectoris (principal); E11.9 Type 2 diabetes mellitus without complications; R53.83 Other fatigue
CPT/HCPCS: 36415; 80048; 80061; 80076; 82306; 82607; 83036; 84443; 85025

== ENCOUNTER → 2023-10-05 05:00 | Outpatient (REF) | payer MEDICARE, SELFPAY ==
[2023-01-27 09:11] VITALS: BMI 34.5
[2023-10-05 08:44] LABS: Absolute Lymphocyte Count 3.29 X10^3/uL (0.83-4.51); Absolute Neutrophil Count 4.4 X10^3/uL (2.0-7.7); Basophil# 0.09 X10^3/uL; Eosinophils% 3.3 % (0-5); Hematocrit 40.8 % (40-54); Hemoglobin 13.3 g/dL (13.0-16.5); Lymphocyte # 3.29 X10^3/ul (0.83-4.51); Lymphocyte % 36.5 % (19-41); Mean Corp Hgb Conc 32.6 g/dL (32-36); Mean Corpuscular Hgb 31.7 pg (27.0-32.0); Mean Corpuscular Volume 97.1 fL (80-94); Mean Platelet Vol. 11.5 fl (6.2-12.0); Monocyte# 0.93 X10^3/uL; Monocyte% 10.3 % (0-10); NRBC Flagged by Analyzer 0 % (0-5); Neutrophil # 4.35 X10^3/uL (2.7-7.7); Neutrophil % 48.2 % (47-70); Platelet Count 221 K/mm3 (150-450); RBC Distribution Width CV 12.8 % (11.6-14.6); RBC Distribution Width SD 45.9 fl (35.1-43.9)
[2023-10-05 11:17] LABS: Anion Gap 6 (5-15); BUN 35 mg/dL (7-18); Calcium,Total 9.5 mg/dL (8.5-10.1); Chloride 101 mmol/L (98-107); Creatinine, Serum 1.59 mg/dL (0.70-1.30); EST Glomerular Filtration Rate 44 mL/min (>60); Est Glom Filt Rate - Afr Amer 53 mL/min (>60); Glucose 185 mg/dL (74-106); Sodium Level 136 mmol/L (136-145)
== END ==
LOC: OLS.WHLTSB 05:00
PROVIDERS: PCP Family Medicine; Visit Provider Internal Medicine
DX: E11.9 Type 2 diabetes mellitus without complications (principal)
CPT/HCPCS: 36415; 80048; 85025

== ENCOUNTER → 2023-11-01 05:00 | Outpatient (REF) | payer MEDICARE, SELFPAY ==
[2023-01-27 09:11] VITALS: BMI 34.5
[2023-11-01 09:41] LABS: Absolute Lymphocyte Count 3.01 X10^3/uL (0.83-4.51); Absolute Neutrophil Count 4.6 X10^3/uL (2.0-7.7); Basophil# 0.06 X10^3/uL; Basophil% 0.7 % (0-1); Eosinophil# 0.25 X10^3/uL; Eosinophils% 2.8 % (0-5); Hematocrit 38.5 % (40-54); Hemoglobin 12.6 g/dL (13.0-16.5); Lymphocyte # 3.01 X10^3/ul (0.83-4.51); Lymphocyte % 33.3 % (19-41); Mean Corp Hgb Conc 32.7 g/dL (32-36); Mean Corpuscular Hgb 32.2 pg (27.0-32.0); Mean Corpuscular Volume 98.5 fL (80-94); Mean Platelet Vol. 11.8 fl (6.2-12.0); Monocyte# 1.03 X10^3/uL; Monocyte% 11.4 % (0-10); NRBC Flagged by Analyzer 0 % (0-5); Neutrophil # 4.64 X10^3/uL (2.7-7.7); Neutrophil % 51.1 % (47-70); Platelet Count 210 K/mm3 (150-450); RBC Distribution Width CV 12.7 % (11.6-14.6); RBC Distribution Width SD 45.7 fl (35.1-43.9); Red Blood Count 3.91 M/mm3 (4.6-6.2); White Blood Count 9.1 K/mm3 (4.4-11.0)
[2023-11-01 09:47] LABS: Anion Gap 10 (5-15); BUN 39 mg/dL (7-18); BUN/Creat Ratio 24.2 RATIO (10-20); Calcium,Total 9.5 mg/dL (8.5-10.1); Chloride 103 mmol/L (98-107); Creatinine, Serum 1.61 mg/dL (0.70-1.30); EST Glomerular Filtration Rate 43 mL/min (>60); Est Glom Filt Rate - Afr Amer 52 mL/min (>60); Glucose 193 mg/dL (74-106); Potassium 4.1 mmol/L (3.5-5.1); Sodium Level 138 mmol/L (136-145)
== END ==
LOC: OLS.WHLTSB 05:00
PROVIDERS: PCP Family Medicine; Visit Provider Internal Medicine
DX: E11.9 Type 2 diabetes mellitus without complications (principal)
CPT/HCPCS: 36415; 80048; 85025

== ENCOUNTER → 2023-12-06 05:00 | Outpatient (REF) | payer MEDICARE, SELFPAY ==
[2023-01-27 09:11] VITALS: BMI 34.5
[2023-12-06 07:43] LABS: Absolute Lymphocyte Count 2.98 X10^3/uL (0.83-4.51); Basophil% 0.8 % (0-1); Eosinophil# 0.25 X10^3/uL; Eosinophils% 2.1 % (0-5); Hematocrit 39.5 % (40-54); Hemoglobin 12.8 g/dL (13.0-16.5); Lymphocyte # 2.98 X10^3/ul (0.83-4.51); Lymphocyte % 25.2 % (19-41); Mean Corp Hgb Conc 32.4 g/dL (32-36); Mean Corpuscular Hgb 32.2 pg (27.0-32.0); Mean Corpuscular Volume 99.5 fL (80-94); Mean Platelet Vol. 11.5 fl (6.2-12.0); Monocyte# 1.41 X10^3/uL; Monocyte% 11.9 % (0-10); NRBC Flagged by Analyzer 0 % (0-5); Neutrophil # 7.02 X10^3/uL (2.7-7.7); Neutrophil % 59.5 % (47-70); Platelet Count 221 K/mm3 (150-450); RBC Distribution Width CV 12.7 % (11.6-14.6); Red Blood Count 3.97 M/mm3 (4.6-6.2); White Blood Count 11.8 K/mm3 (4.4-11.0)
[2023-12-06 08:25] LABS: AST(SGOT) 18 U/L (15-37); Alanine Aminotransfer ALT/SGPT 26 U/L (16-61); Albumin, Serum 3.4 g/dL (3.2-5.0); Alkaline Phosphatase 125 U/L (45-117); Anion Gap 7 (5-15); BUN 30 mg/dL (7-18); BUN/Creat Ratio 21.4 RATIO (10-20); Bilirubin, Direct 0.21 mg/dL (0.00-0.30); Calcium,Total 9.3 mg/dL (8.5-10.1); Chloride 103 mmol/L (98-107); Cholesterol 148 mg/dL (200); EST Glomerular Filtration Rate 51 mL/min (>60); Est Glom Filt Rate - Afr Amer 61 mL/min (>60); Glucose 192 mg/dL (74-106); High Density Lipoprotein 45 mg/dL; Potassium 3.9 mmol/L (3.5-5.1); Protein, Total 7.4 g/dL (6.4-8.2); Sodium Level 140 mmol/L (136-145); Triglycerides 204 mg/dL; Very Low Density Lipoprotein 41 mg/dL (5-40)
[2023-12-06 09:34] LABS: Hemoglobin A1c 8.4 % (3.8-5.6)
== END ==
LOC: OLS.WHLTSB 05:00
PROVIDERS: PCP Family Medicine; Visit Provider Internal Medicine
DX: I25.10 Atherosclerotic heart disease of native coronary artery without angina pectoris (principal); E11.9 Type 2 diabetes mellitus without complications
CPT/HCPCS: 36415; 80048; 80061; 80076; 83036; 85025

== ENCOUNTER → 2023-12-16 | Outpatient (REF) | payer MEDICARE, SELFPAY ==
[2023-01-27 09:11] VITALS: BMI 34.5
[2023-12-16 08:58] LABS: Absolute Lymphocyte Count 2.94 X10^3/uL (0.83-4.51); Eosinophil# 0.25 X10^3/uL; Eosinophils% 2.6 % (0-5); Hemoglobin 12.4 g/dL (13.0-16.5); Lymphocyte # 2.94 X10^3/ul (0.83-4.51); Lymphocyte % 30.1 % (19-41); Mean Corp Hgb Conc 33.5 g/dL (32-36); Mean Corpuscular Hgb 32.9 pg (27.0-32.0); Mean Corpuscular Volume 98.1 fL (80-94); Mean Platelet Vol. 11.2 fl (6.2-12.0); Monocyte# 1.38 X10^3/uL; Monocyte% 14.1 % (0-10); NRBC Flagged by Analyzer 0 % (0-5); Neutrophil % 51.3 % (47-70); Platelet Count 238 K/mm3 (150-450); RBC Distribution Width CV 12.5 % (11.6-14.6); RBC Distribution Width SD 44.9 fl (35.1-43.9); Red Blood Count 3.77 M/mm3 (4.6-6.2); White Blood Count 9.8 K/mm3 (4.4-11.0)
[2023-12-16 09:35] LABS: ALB/GLOB Ratio 0.8 RATIO (0.9-2.4); AST(SGOT) 26 U/L (15-37); Alanine Aminotransfer ALT/SGPT 28 U/L (16-61); Alkaline Phosphatase 119 U/L (45-117); Anion Gap 5 (5-15); BUN 29 mg/dL (7-18); BUN/Creat Ratio 20.7 RATIO (10-20); Calcium,Total 9.1 mg/dL (8.5-10.1); Chloride 104 mmol/L (98-107); EST Glomerular Filtration Rate 51 mL/min (>60); Est Glom Filt Rate - Afr Amer 61 mL/min (>60); Globulin 3.8 g/dL (2.2-4.2); Glucose 184 mg/dL (74-106); Potassium 4.2 mmol/L (3.5-5.1); Protein, Total 6.8 g/dL (6.4-8.2); Sodium Level 138 mmol/L (136-145)
== END ==
LOC: OLS.WHLTSB 05:00
PROVIDERS: PCP Family Medicine; Visit Provider Internal Medicine
DX: R53.83 Other fatigue (principal); E11.9 Type 2 diabetes mellitus without complications
CPT/HCPCS: 36415; 80053; 84443; 85025

== ENCOUNTER 2023-12-22 12:43 | Inpatient (IN) | payer MEDICARE, SELFPAY ==
[2023-01-27 09:11] VITALS: BMI 34.5
[2023-12-22 12:52] VITALS: BP 122/43; PULSE 71; RESP 16; TEMP 36.6; O2SAT 96
[2023-12-22 14:42] VITALS: BMI 34.2
--- NOTE | 2023-12-22 14:47 | ED.RN ---
pt oriented to place and self. did admit to living at [facility] pt stated, have dementia denies any pain at this time or nausea. bp normal at this time
--- NOTE | 2023-12-22 14:58 | EKG12_ITS ---
Test Reason : Blood Pressure : */* mmHG Vent. Rate : 75 BPM Atrial Rate : 75 BPM P-R Int : 172 ms QRS Dur : 86 ms QT Int : 446 ms P-R-T Axes : 76 47 136 degrees QTcB Int : 498 ms Normal sinus rhythm ST & T wave abnormality, consider anterolateral ischemia Abnormal ECG Confirmed by MALGORZATA MILIAN, NENO ([id number]), editor city LETICIA CAMARGO ([id number]) on 12/24/2023 8:17:24 AM Referred By: Melissa Villar Confirmed By: NENO MCGARRY MD
--- NOTE | 2023-12-22 15:24 | ED.RN ---
ONI TRANSFERRED TO [facility]
[2023-12-22 15:28] VITALS: BP 128/51; PULSE 77; RESP 18; O2SAT 99
--- NOTE | 2023-12-22 15:30 | EDS_ITS ---
HPI History of Present Illness Chief Complaint: Nausea/Vomiting/Diarrhea Informant: patient Narrative Narrative: Patient is an 88-year-old male with history of coronary artery disease status post stent placement, hypertension, hyperlipidemia, bilateral carotid artery stenosis and dementia presenting from assisted living for concern of fever, diarrhea and generalized weakness. Per report from the facility patient had a fever 100.8 last night and there is COVID going around. He has had diarrhea but had a negative COVID test. His blood pressure was 98/28 manually. He was sent in for further evaluation. Patient has no complaints and does not know why he is in the emergency room. He denies any abdominal pain, nausea, vomiting or diarrhea. Not aware of having a fever. Does tell me that he has had some sore throat and nasal congestion. Denies any headache. Denies any lightheadedness or dizziness. Denies any chest pain or shortness of breath. Denies any cough but does have a nonproductive dry cough when I am talking to him. [facility] Medical History Diabetes Dementia Bilateral carotid artery stenosis Dyspnea on exertion Diabetes mellitus, type II Hyperlipidemia Essential hypertension Atherosclerosis of coronary artery of [place] heart without angina pectoris Exertional chest pain Medical History unable to obtain Home Medications ?Medication ?Instructions ?Recorded ?Last Taken ?Type metformin 500 mg tablet 1,000 mg PO BID 05/14/22 Unknown History acetaminophen 500 mg capsule 1,000 mg PO TID PRN pain 08/17/23 Unknown History donepezil 5 mg tablet 5 mg PO QDAY 08/17/23 Unknown History atorvastatin 40 mg tablet 40 mg PO QHS heart #90 TABLETS 09/20/23 Unknown Rx clopidogrel 75 mg tablet 75 mg PO DAILY blood thinner #90 09/20/23 Unknown Rx TABLETS metoprolol tartrate 25 mg tablet 25 mg PO BID #180 TABLETS 09/20/23 Unknown Rx dapagliflozin propanediol 10 mg 10 mg PO DAILY 12/22/23 Unknown History tablet (Farxiga) losartan 50 mg tablet 50 mg PO DAILY 12/22/23 Unknown History Allergy/AdvReac Type Severity Reaction Status Date / Time No Known Allergies Allergy Verified 12/22/23 12:52 Surgical History History of left-sided carotid endarterectomy (2017) History of coronary artery stent placement (01/12/19) Social History Smoking Status: Former smoker how long ago did patient quit smokin + years ago alcohol intake: never substance use type: does not use caffeine: No ROS ROS ED Review of Systems ROS Unobtainable: other Details: Dementia Constitutional Constitutional ED: Reports fever(s); Denies chills ENT ENT ED: Reports sore throat and other Details: congestion Cardiovascular Cardiovascular: Denies chest pain Gastrointestinal Gastrointestinal: Reports diarrhea and nausea Integumentary Denies rash Hematologic/Lymphatic Hematologic/Lymphatic: Denies easy bleeding or easy bruising EXAM Physical Exam Const Vital Signs: 12/22/23 12:52 12/22/23 15:28 12/22/23 17:00 Temperature 98 F 98.1 F Temperature Source Oral Oral Pulse Rate 71 77 77 Respiratory Rate 16 18 19 H Blood Pressure 122/43 H 128/51 H 134/88 H Blood Pressure Mean 69 76 103 Pulse Ox 96 99 92 Oxygen Delivery Method Room Air Room Air Room Air Positive well nourished and well developed General Appearance ED: well developed HEENT Reports TM's clear and moist mucous membranes HEENT Narrative: Normal oropharynx Tympanic Membrane ED: Yes TM's clear Eyes PERRL and EOMs intact bilaterally Neck supple and no JVD Chest Wall inspection of chest normal and palpation of chest normal Resp normal respiratory effort and clear to auscultation bilaterally Cardio regular rate and regular rhythm GI normal to inspection, nondistended, normoactive bowel sounds and non-tender Auscultation: hyperactive bowel sounds Palpation: soft; Negative for tender or guarding Back/Spine no CVA tenderness Extremity normal to inspection General Extremety ED: Negative for edema General Extremity: Negative for edema Neuro Neuro Narrative: Oriented to self, no focal deficits appreciate Sensorium / Orientation: alert Motor Exam: general weakness Psych mental status grossly normal Skin no rashes or lesions noted and no wounds MDM MDM MDM Narrative Medical decision making narrative: Patient presents to the ER from assisted living for hypotension and diarrhea and fever last night. Patient is demented and a poor story. He is well-appearing on exam. Vital signs are normal. He is not hypotensive here. Broad workup is obtained for concern of possible infectious etiology versus cardiac etiology of his symptoms. Differential includes was not limited to COVID-19, dehydration, ACS, sepsis, ABNER, diverticulitis, colitis/C. difficile and pneumonia. Patient does have a leukocytosis 15.8. Lactate is elevated at 3.4. Patient has mild anemia with a hemoglobin of 12.9 but this peers to be his baseline. He does not have a left shift. Kidney function mildly elevated from his baseline at 1.9 (baseline is 1.4). Patient is given a liter of IV fluids. Urinalysis not consistent with infection. Chest x-ray viewed by myself as well as radiology does not show any obvious infiltrates. CT abdomen pelvis does not show any acute process. There is no clear source of his symptoms. Is possible this could be more dehydration related. Patient then has significant diarrhea in the emergency room. No blood in the stool noted. Questionably has some type of colitis versus C. difficile. Stool samples are sent. Will hold off on antibiotics in case this is C. difficile. Patient will be admitted for further monitoring and treatment. Patient cooperative and agreeable plan of care. Case discussed with hospitalist, Dr. Hubbard. Lab Data Attestation: I reviewed the patient's lab results. Labs: Laboratory Results - last 24 hr 12/22/23 12/22/23 15:19 16:25 WBC 15.6 H RBC 4.00 L Hgb 12.9 L Hct 39.5 L MCV 98.8 H MCH 32.3 H MCHC 32.7 RDW Std Deviation 45.9 H RDW Coeff of Genesis 12.7 Plt Count 295 MPV 10.4 Immature Gran % (Auto) 0.600 Neut % (Auto) 68.5 Lymph % (Auto) 19.4 [place] % (Auto) 9.6 Eos % (Auto) 1.3 Baso % (Auto) 0.6 Absolute Neuts (auto) 10.7 H Absolute Lymphs (auto) 3.02 Nucleated RBC % 0 Sodium 139 Potassium 4.5 Chloride 105 Carbon Dioxide 28.0 Anion Gap 6 BUN 37 H Creatinine 1.90 H Estim Creat Clear Calc 34.42 Est GFR (MDRD) Af Amer 43 L Est GFR (MDRD) Non-Af 36 L BUN/Creatinine Ratio 19.5 Glucose 173 H Lactic Acid 3.5 H* Calcium 9.6 Phosphorus 3.7 Magnesium 2.5 Total Bilirubin 0.50 AST 17 ALT 23 Alkaline Phosphatase 120 H Total Protein 7.3 Albumin 3.0 L Globulin 4.3 H Albumin/Globulin Ratio 0.7 L Lipase 41 Urine Color Yellow Urine Clarity Clear Urine pH 6.0 Ur Specific [place] 1.015 Urine Protein Negative Urine Glucose (UA) 1000 H Urine Ketones Negative Urine Occult Blood Negative Urine Nitrite Negative Urine Bilirubin Negative Urine Urobilinogen Normal Ur Leukocyte Esterase Negative Urine RBC 0 SEEN Urine WBC 0-5 SEEN Ur Squamous Epith Cells 0-5 SEEN Urine Bacteria 0 SEEN Urine Mucus 0 SEEN Radiography Diagnostic Testing: Clinical Impression(s) from Imaging Studies Abdomen/Pelvis CT 12/22/23 16:12 IMPRESSION: Diffuse diverticular changes of the colon without evidence for acute diverticulitis No evidence for small bowel obstruction or other acute abnormality Electronically Signed: Brennan Santos MD at 17:25 EDT Reading Location ID and State: [facility] / [place] Tel [phone], Service support , Chest X-Ray 12/22/23 17:00 IMPRESSION: Chronic bibasilar interstitial thickening and ASHD. No acute cardiopulmonary pathology Electronically Signed: Brennan Santos MD at 17:30 EDT , Rhythm Strip Rhythm Strip: Sinus Rhythm Rate: 75 Ectopy: None EKG Initial EKG: Attestation: I personally reviewed and interpreted this EKG as follows: Interpretation: Sinus Rhythm Comments: Normal sinus rhythm rate of 75 bpm Normal axis T wave inversions in the precordial leads as well as 1 and aVL No change compared to prior EKG Prior EKG tracings: available for review Prior: Unchanged Discharge Plan Dx/Rx/DC Orders Clinical Impression: ABNER (acute kidney injury), Elevated lactic acid level, Diarrhea, Leukocytosis Disposition Disposition: Acute Care Hospital [facility] Discharge Date/Time: 12/22/23 20:22
[2023-12-22 15:35] LABS: Absolute Lymphocyte Count 3.02 X10^3/uL (0.83-4.51); Absolute Neutrophil Count 10.7 X10^3/uL (2.0-7.7); Basophil# 0.09 X10^3/uL; Basophil% 0.6 % (0-1); Eosinophils% 1.3 % (0-5); Hematocrit 39.5 % (40-54); Hemoglobin 12.9 g/dL (13.0-16.5); Lymphocyte # 3.02 X10^3/ul (0.83-4.51); Lymphocyte % 19.4 % (19-41); Mean Corp Hgb Conc 32.7 g/dL (32-36); Mean Corpuscular Hgb 32.3 pg (27.0-32.0); Mean Corpuscular Volume 98.8 fL (80-94); Mean Platelet Vol. 10.4 fl (6.2-12.0); Monocyte% 9.6 % (0-10); NRBC Flagged by Analyzer 0 % (0-5); Neutrophil % 68.5 % (47-70); Platelet Count 295 K/mm3 (150-450); RBC Distribution Width CV 12.7 % (11.6-14.6); RBC Distribution Width SD 45.9 fl (35.1-43.9); White Blood Count 15.6 K/mm3 (4.4-11.0)
[2023-12-22 16:08] LABS: Lactic Acid 3.5 mmol/L (0.4-1.9)
--- NOTE | 2023-12-22 16:12 | CT_ITS ---
STUDY: CT ABDOMEN AND PELVIS WITH CONTRAST REASON FOR EXAM: Male, 88 years old. vomiting/diarrhea RADIATION DOSAGE (If Supplied By Facility): CTDIvol = ( 17.01 ) mGy, DLP = ( 1561.60 ) mGycm TECHNIQUE: Transaxial images were obtained from the dome of the diaphragm to the symphysis pubis without oral contrast. IV 100mL Isovue-300 was administered. Sagittal and coronal images were reconstructed. Individualized dose optimization techniques were used for this CT. COMPARISON: None. FINDINGS: Nonspecific bibasilar interstitial thickening. Heart size is normal. There is multivessel coronary artery disease Normal liver. Normal gallbladder and extrahepatic biliary system. Normal spleen. Normal pancreas. Normal bilateral adrenal glands. No evidence for renal obstruction. There are bilateral renal cysts which will not require additional imaging. Normal visualized stomach. Normal small intestine. Scattered diverticular changes of the colon without evidence for acute diverticulitis. Normal appendix is not visualized possibly due to prior appendectomy. Atherosclerotic changes of the aorta with mild segmental aneurysmal dilatation measuring approximately 2.75 x 2.7 cm. Normal inferior vena cava. Normal retroperitoneum. Normal urinary bladder. Mild nonspecific enlargement of the prostate Bilateral fat-containing inguinal hernias.. Lumbar spine demonstrates degenerative change. CT/Abdomen/Pelvis W IV Cont ONLY IMPRESSION: Diffuse diverticular changes of the colon without evidence for acute diverticulitis No evidence for small bowel obstruction or other acute abnormality Electronically Signed: Brennan Santos MD at 17:25 EDT ,
[2023-12-22 16:25] LABS: ALB/GLOB Ratio 0.7 RATIO (0.9-2.4); AST(SGOT) 17 U/L (15-37); Alanine Aminotransfer ALT/SGPT 23 U/L (16-61); Alkaline Phosphatase 120 U/L (45-117); Anion Gap 6 (5-15); BUN 37 mg/dL (7-18); BUN/Creat Ratio 19.5 RATIO (10-20); Calcium,Total 9.6 mg/dL (8.5-10.1); Chloride 105 mmol/L (98-107); EST Glomerular Filtration Rate 36 mL/min (>60); Est Glom Filt Rate - Afr Amer 43 mL/min (>60); Estimated Creatinine Clearance 34.42 ml/min; Globulin 4.3 g/dL (2.2-4.2); Glucose 173 mg/dL (74-106); Lipase 41 U/L (13-75); Potassium 4.5 mmol/L (3.5-5.1); Protein, Total 7.3 g/dL (6.4-8.2); Sodium Level 139 mmol/L (136-145)
[2023-12-22 16:29] LABS: Bacteria 0 SEEN /hpf (None Seen); Mucous, Urine 0 SEEN /hpf (<or=2+); Red Blood Cells-Urine 0 SEEN /hpf (0-5)
[2023-12-22 16:33] LABS: Color, Urine Yellow (Yellow); Glucose, Dipstick 1000 mg/dl (Normal); Ketone-Dipstick Negative (Negative); Leukocyte Esterase-Dipstick Negative /ul (Negative); Nitrite-Dipstick Negative (Negative); Occult Blood-Urine Negative /ul (Negative); Protein-Dipstick Negative (Negative); Specific Gravity, Urine 1.015 (1.002-1.030); Urine Bilirubin Dipstick Negative (Negative); Urine Clarity Clear (Clear); Urine Urobilinogen Normal (Normal)
[2023-12-22 17:00] VITALS: BP 134/88; PULSE 77; RESP 19; TEMP 36.7; O2SAT 92
--- NOTE | 2023-12-22 17:00 | RAD_ITS ---
STUDY: X-RAY CHEST REASON FOR EXAM: Male, 88 years old. weakness, fever TECHNIQUE: PA and lateral COMPARISON: January 11, 2019 FINDINGS: There is mild chronic interstitial thickening bilaterally in the lower lobes.. There is no demonstrated pleural abnormality. Heart is enlarged Normal mediastinum and fabi. Normal visualized pulmonary arteries. Calcified and tortuous aortic arch and descending thoracic aorta. Dorsal spine demonstrates degenerative change. Normal visualized ribs, clavicles, and shoulders. There is no demonstrated abnormality of the visualized soft tissue structures of the upper abdomen. No significant change since prior exam RAD/Chest PA and Lateral IMPRESSION: Chronic bibasilar interstitial thickening and ASHD. No acute cardiopulmonary pathology Electronically Signed: Brennan Santos MD at 17:30 EDT ,
[2023-12-22] MEDS: 0.9% Normal Saline (1000mL) 1,000 ML 999 ML IV (17:09)
[2023-12-22 17:11] LABS: Squamous Epithelial Cells - UA 0-5 SEEN /hpf (0-5); White Blood Cells 0-5 SEEN /hpf (0-5)
[2023-12-22 19:27] LABS: Reflex Lactate? Y
--- NOTE | 2023-12-22 19:36 | PCM.HP.STD ---
HPI - General General Date of Admission: 12/22/23 Date of Service: 12/22/23 Chief Complaint: Diarrhea, nausea vomiting and hypotension. HPI Narrative JIM CORADO, davie a 88 M was brought to ED from [facility] after he was found hypotensive. Patient also nauseous vomiting and diarrhea as per EMS report. Duration is unclear as patient cannot give history he has dementia. No fever. No abdominal pain. As per EMS note, patient had low blood pressure, report given by nursing staff but EMS vitals shows patient normotensive BP 130/50, heart rate 72 per 100.. Patient also had weakness headache and COVID test were negative. In ED patient does not know the place, person and time and the reason for being in ED. [facility] Medical History Diabetes Dementia Bilateral carotid artery stenosis Dyspnea on exertion Diabetes mellitus, type II Hyperlipidemia Essential hypertension Atherosclerosis of coronary artery of [place] heart without angina pectoris Exertional chest pain Medical History unable to obtain Home Medications ?Medication ?Instructions ?Recorded ?Last Taken ?Type aspirin 81 mg chewable tablet 81 mg PO QHS heart health 01/11/19 01/10/19 History omega-3 fatty acids-fish oil 340 1 ea PO DAILY supplement 01/11/19 01/10/19 History mg-1,000 mg capsule multivitamin-ferrous 1 tab PO DAILY 01/05/20 Unknown History fumarate-folic acid 18 mg-400 mcg tablet (Centrum Complete) hydrochlorothiazide 25 mg tablet 25 mg PO DAILY #90 tabs 04/30/22 Unknown Rx metformin 500 mg tablet 1,000 mg PO BID 05/14/22 Unknown History lisinopril 10 mg tablet See Rx Instructions .Route 03/22/23 Unknown Rx .COMPLEX #90 tabs acetaminophen 500 mg capsule 1,000 mg PO TID PRN pain 08/17/23 Unknown History donepezil 5 mg tablet 5 mg PO QDAY 08/17/23 Unknown History atorvastatin 40 mg tablet 40 mg PO QHS #90 TABLETS 09/20/23 Unknown Rx clopidogrel 75 mg tablet 75 mg PO DAILY #90 TABLETS 09/20/23 Unknown Rx metoprolol tartrate 25 mg tablet 25 mg PO BID #180 TABLETS 09/20/23 Unknown Rx dapagliflozin propanediol 10 mg 10 mg PO DAILY 12/22/23 Unknown History tablet (Farxiga) losartan 50 mg tablet 50 mg PO DAILY 12/22/23 Unknown History Allergy/AdvReac Type Severity Reaction Status Date / Time No Known Allergies Allergy Verified 12/22/23 12:52 Surgical History History of left-sided carotid endarterectomy (2017) History of coronary artery stent placement (01/12/19) Social History Smoking Status: Former smoker how long ago did patient quit smokin + years ago alcohol intake: never substance use type: does not use caffeine: No ROS ROS Narrative 14 system ROS unobtainable as patient has advanced dementia. Review of Systems ROS Unobtainable: due to mental condition and due to mental status Vital Signs Vital Signs Vital Signs: 12/22/23 12:52 12/22/23 15:28 12/22/23 17:00 Temperature 98 F 98.1 F Temperature Source Oral Oral Pulse Rate 71 77 77 Respiratory Rate 16 18 19 H Blood Pressure 122/43 H 128/51 H 134/88 H Blood Pressure Mean 69 76 103 Pulse Ox 96 99 92 Oxygen Delivery Method Room Air Room Air Room Air Weight Weight: 252 lb 4.8 oz Body Mass Index (BMI) 34.2 Physical Exam Narrative General: Alert and awake but disoriented to time, place and person and situation. Does not know the name of president, age and month HEENT: Atraumatic, PERRLA, EOMI, Normocephalic Oral: Oral mucosa dry. No Gingival or Mucosal Lesions/ Ulcerations Neck: Supple, No JVD, Negative Carotid Bruits Chest wall/Lungs: Air entry diminished in bilateral lung bases. No crepitation/rhonchi Cardiovascular: Regular rate, Regular Rhythm, Normal S1, Normal S2, No M/G/R Abdomen: Bowel Sounds Present, Soft, Non Tender, Non-Distended : Cannot tell about dysuria. No renal angle tenderness. No suprapubic tenderness. Extremities: No edema, Capillary Refill Less than 3 Seconds Skin: Multiple abrasions and bruises over bilateral knees, right upper back, scapular area. Bilateral groin radiation rash suggestive of yeast infection. Musculoskeletal: No Tenderness to Palpation of Joints or Extremities Neurological: Cranial nerves II-XII grossly intact, DTR 2+/4. No acute focal neurological deficit. Psych/Mental Status: Flat affect, dementia. Results Lab / Micro Data 12/22/23 15:19 12/22/23 15:19 Labs: Laboratory Results - last 24 hr 12/22/23 15:19: WBC 15.6 H, RBC 4.00 L, Hgb 12.9 L, Hct 39.5 L, MCV 98.8 H, MCH 32.3 H, MCHC 32.7, RDW Std Deviation 45.9 H, RDW Coeff of Genesis 12.7, Plt Count 295, MPV 10.4, Immature Gran % (Auto) 0.600, Neut % (Auto) 68.5, Lymph % (Auto) 19.4, Falls % (Auto) 9.6, Eos % (Auto) 1.3, Baso % (Auto) 0.6, Absolute Neuts (auto) 10.7 H, Absolute Lymphs (auto) 3.02, Nucleated RBC % 0, Sodium 139, Potassium 4.5, Chloride 105, Carbon Dioxide 28.0, Anion Gap 6, BUN 37 H, Creatinine 1.90 H, Estim Creat Clear Calc 34.42, Est GFR (MDRD) Af Amer 43 L, Est GFR (MDRD) Non-Af 36 L, BUN/Creatinine Ratio 19.5, Glucose 173 H, Lactic Acid 3.5 H*, Calcium 9.6, Total Bilirubin 0.50, AST 17, ALT 23, Alkaline Phosphatase 120 H, Total Protein 7.3, Albumin 3.0 L, Globulin 4.3 H, Albumin/Globulin Ratio 0.7 L, Lipase 41 12/22/23 16:25: Urine Color Yellow, Urine Clarity Clear, Urine pH 6.0, Ur Specific [place] 1.015, Urine Protein Negative, Urine Glucose (UA) 1000 H, Urine Ketones Negative, Urine Occult Blood Negative, Urine Nitrite Negative, Urine Bilirubin Negative, Urine Urobilinogen Normal, Ur Leukocyte Esterase Negative, Urine RBC 0 SEEN, Urine WBC 0-5 SEEN, Ur Squamous Epith Cells 0-5 SEEN, Urine Bacteria 0 SEEN, Urine Mucus 0 SEEN Micro: Microbiology 12/22/23 16:25 Mucosa - Nose SARS-CoV-2, Influenza & RSV (PCR) - Final Rhythm Strip Rhythm Strip: Sinus Rhythm Rate: 75 Ectopy: None Imaging Radiology Impression Abdomen/Pelvis CT 12/22/23 16:12 IMPRESSION: Diffuse diverticular changes of the colon without evidence for acute diverticulitis No evidence for small bowel obstruction or other acute abnormality Electronically Signed: Brennan Santos MD at 17:25 EDT , Chest X-Ray 12/22/23 17:00 IMPRESSION: Chronic bibasilar interstitial thickening and ASHD. No acute cardiopulmonary pathology Electronically Signed: Brennan Santos MD at 17:30 EDT , Assessment & Plan Assessment/Plan (1) Gastroenteritis: (2) ABNER (acute kidney injury): PLAN: Plan This 88-year-old gentleman was brought from [facility] for low blood pressure, nausea vomiting diarrhea headache in [facility]. 1. Acute gastroenteritis with severe dehydration possible viral gastroenteritis: Patient is being admitted on [facility] floor. Lactic acid 3.5. No abdominal tenderness or findings suggestive of acute abdomen. CT abdomen with IV contrast reviewed. No acute intraabdominal finding or bowel obstruction. Chronic diverticular changes of colon without diverticulitis. IV fluid normal saline resuscitation at 125 mL/h. Monitor intake and output. Stool for C. difficile, enteric pathogen ordered. Triple PCR for SARS-CoV-2, flu and RSV are negative. Patient in mild leukocytosis. 2. ABNER on CKD stage IIIa: Patient baseline creatinine 1.4 and earlier part of November 2023. Today BUN/creatinine 37/1.9. Patient also got IV contrast therefore risk for STUART. Continue IV fluid normal saline and monitor kidney function. UA shows RBC 0, WBC 0, nitrite and LE negative and benign except glucose 1000, ketones negative. Avoid nephrotoxic medications. 3. CAD status post cardiac stent in December 2018 and bilateral carotid stenosis: Continue medications. Clopidogrel was discontinued during last cardiology visit in July 2023. Moderate to stenosis of right ICA and left ICA. 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 Continue metoprolol and baby aspirin 4. Hypertension, dyslipidemia: Hold antihypertensive medication. Hold atorvastatin. 5. Dementia: Patient on donezepil. Continued 6. DM type II: Hold metformin, dapagliflozin. Accu-Chek before meals and at bedtime with Humalog sliding scale coverage and hypoglycemia protocol. 7. Acute debility with multifocal fall and abrasions bilateral knees and failure to thrive: PT and OT ordered. Patient has advanced dementia and cannot discuss about advanced directive or living will. No family member present in ED. Full code unverified. Microbiology Past 72 Hours 12/22/23 16:25 Mucosa - Nose SARS-CoV-2, Influenza & RSV (PCR) - Final Laboratory Results 12/22/23 15:19: WBC 15.6 H, RBC 4.00 L, Hgb 12.9 L, Hct 39.5 L, MCV 98.8 H, MCH 32.3 H, MCHC 32.7, RDW Std Deviation 45.9 H, RDW Coeff of Genesis 12.7, Plt Count 295, MPV 10.4, Immature Gran % (Auto) 0.600, Neut % (Auto) 68.5, Lymph % (Auto) 19.4, [place] % (Auto) 9.6, Eos % (Auto) 1.3, Baso % (Auto) 0.6, Absolute Neuts (auto) 10.7 H, Absolute Lymphs (auto) 3.02, Nucleated RBC % 0, Sodium 139, Potassium 4.5, Chloride 105, Carbon Dioxide 28.0, Anion Gap 6, BUN 37 H, Creatinine 1.90 H, Estim Creat Clear Calc 34.42, Est GFR (MDRD) Af Amer 43 L, Est GFR (MDRD) Non-Af 36 L, BUN/Creatinine Ratio 19.5, Glucose 173 H, Lactic Acid 3.5 H*, Calcium 9.6, Total Bilirubin 0.50, AST 17, ALT 23, Alkaline Phosphatase 120 H, Total Protein 7.3, Albumin 3.0 L, Globulin 4.3 H, Albumin/Globulin Ratio 0.7 L, Lipase 41 12/22/23 16:25: Urine Color Yellow, Urine Clarity Clear, Urine pH 6.0, Ur Specific [place] 1.015, Urine Protein Negative, Urine Glucose (UA) 1000 H, Urine Ketones Negative, Urine Occult Blood Negative, Urine Nitrite Negative, Urine Bilirubin Negative, Urine Urobilinogen Normal, Ur Leukocyte Esterase Negative, Urine RBC 0 SEEN, Urine WBC 0-5 SEEN, Ur Squamous Epith Cells 0-5 SEEN, Urine Bacteria 0 SEEN, Urine Mucus 0 SEEN 12/22/23 19:40: Lactic Acid Pending Clinical Impression(s) from Imaging Studies Abdomen/Pelvis CT 12/22/23 16:12 IMPRESSION: Diffuse diverticular changes of the colon without evidence for acute diverticulitis No evidence for small bowel obstruction or other acute abnormality Chest X-Ray 12/22/23 17:00 IMPRESSION: Chronic bibasilar interstitial thickening and ASHD. No acute cardiopulmonary pathology Electronically Signed: Brennan Santos MD at 17:30 EDT , Charges/Coding Visit Charges Inpatient E&M: 38931 Init Hosp L3
[2023-12-22 20:38] VITALS: BMI 32.2
[2023-12-22 20:44] VITALS: BP 155/66; PULSE 91; RESP 17; TEMP 36.4; O2SAT 96
[2023-12-22] MEDS: 0.9% Normal Saline (1000mL) 1,000 ML 125 ML IV (20:50)
[2023-12-22 21:08] LABS: Magnesium 2.5 mg/dL (1.6-2.6); Phosphorus 3.7 mg/dL (2.5-4.9)
[2023-12-22 21:50] VITALS: PULSE 87
[2023-12-22] MEDS: Enoxaparin 40 MG/0.4 ML Syringe SC (22:21)
[2023-12-23] VITALS (12 sets, daily range): BP systolic 121–161; BP diastolic 36–63; PULSE 70–94; RESP 16–18; TEMP 36.4–36.9; O2SAT 93–95
[2023-12-23] MEDS: 0.9% Normal Saline (1000mL) 1,000 ML 125 ML IV (05:10)
[2023-12-23 07:21] LABS: Bedside Glucose 165 mg/dL (74-106)
[2023-12-23 07:36] LABS: Absolute Lymphocyte Count 2.62 X10^3/uL (0.83-4.51); Absolute Neutrophil Count 8.2 X10^3/uL (2.0-7.7); Basophil% 0.8 % (0-1); Eosinophil# 0.23 X10^3/uL; Eosinophils% 1.9 % (0-5); Hematocrit 37.3 % (40-54); Hemoglobin 12.6 g/dL (13.0-16.5); Lymphocyte # 2.62 X10^3/ul (0.83-4.51); Lymphocyte % 21.2 % (19-41); Mean Corp Hgb Conc 33.8 g/dL (32-36); Mean Corpuscular Hgb 32.5 pg (27.0-32.0); Mean Corpuscular Volume 96.1 fL (80-94); Mean Platelet Vol. 10.4 fl (6.2-12.0); Monocyte% 8.9 % (0-10); NRBC Flagged by Analyzer 0 % (0-5); Neutrophil # 8.24 X10^3/uL (2.7-7.7); Neutrophil % 66.6 % (47-70); Platelet Count 269 K/mm3 (150-450); RBC Distribution Width CV 12.5 % (11.6-14.6); RBC Distribution Width SD 43.5 fl (35.1-43.9); Red Blood Count 3.88 M/mm3 (4.6-6.2); White Blood Count 12.4 K/mm3 (4.4-11.0)
--- NOTE | 2023-12-23 07:54 | PCM.PN.HOSP ---
Reason for Visit Reason for Visit: Diagnoses Noninfective gastroenteritis and colitis, unspecified (12/22/23) Acute kidney failure, unspecified (12/22/23) Subjective Subjective Patient is an 88-year gentleman resident as an extended care facility who was sent to the ED on account of hypotension. Patient had apparently experienced nausea vomiting and diarrhea prior to being diagnosed with hypotension. Admitted to the regular nursing floor for subsequent management Objective Data Objective Data Vital Signs: Vital Signs Temp Pulse Resp BP Pulse Ox O2 Del Method 97.8 F 92 18 121/46 H 93 Room Air 12/23/23 03:33 12/23/23 07:15 12/23/23 03:33 12/23/23 03:33 12/23/23 03:33 12/23/23 03:33 Oxygen Delivery Method Room Air Weight: 110.9 kg Body Mass Index (BMI) 32.2 Intake & Output: Intake and Output for Last 24 Hours 12/21/23 12/22/23 12/23/23 23:59 23:59 23:59 Intake Total 1000 / 1200 1500 / 1500 Balance 1000 / 1200 1500 / 1500 Lab / Micro Data 12/23/23 07:01 12/23/23 07:01 Labs: Laboratory Results - last 24 hr 12/22/23 15:19: WBC 15.6 H, RBC 4.00 L, Hgb 12.9 L, Hct 39.5 L, MCV 98.8 H, MCH 32.3 H, MCHC 32.7, RDW Std Deviation 45.9 H, RDW Coeff of Genesis 12.7, Plt Count 295, MPV 10.4, Immature Gran % (Auto) 0.600, Neut % (Auto) 68.5, Lymph % (Auto) 19.4, [place] % (Auto) 9.6, Eos % (Auto) 1.3, Baso % (Auto) 0.6, Absolute Neuts (auto) 10.7 H, Absolute Lymphs (auto) 3.02, Nucleated RBC % 0, Sodium 139, Potassium 4.5, Chloride 105, Carbon Dioxide 28.0, Anion Gap 6, BUN 37 H, Creatinine 1.90 H, Estim Creat Clear Calc 34.42, Est GFR (MDRD) Af Amer 43 L, Est GFR (MDRD) Non-Af 36 L, BUN/Creatinine Ratio 19.5, Glucose 173 H, Lactic Acid 3.5 H*, Calcium 9.6, Phosphorus 3.7, Magnesium 2.5, Total Bilirubin 0.50, AST 17, ALT 23, Alkaline Phosphatase 120 H, Total Protein 7.3, Albumin 3.0 L, Globulin 4.3 H, Albumin/Globulin Ratio 0.7 L, Lipase 41 12/22/23 16:25: Urine Color Yellow, Urine Clarity Clear, Urine pH 6.0, Ur Specific [place] 1.015, Urine Protein Negative, Urine Glucose (UA) 1000 H, Urine Ketones Negative, Urine Occult Blood Negative, Urine Nitrite Negative, Urine Bilirubin Negative, Urine Urobilinogen Normal, Ur Leukocyte Esterase Negative, Urine RBC 0 SEEN, Urine WBC 0-5 SEEN, Ur Squamous Epith Cells 0-5 SEEN, Urine Bacteria 0 SEEN, Urine Mucus 0 SEEN 12/22/23 19:40: Lactic Acid 2.0 12/23/23 07:01: WBC 12.4 H, RBC 3.88 L, Hgb 12.6 L, Hct 37.3 L, MCV 96.1 H, MCH 32.5 H, MCHC 33.8, RDW Std Deviation 43.5, RDW Coeff of Genesis 12.5, Plt Count 269, MPV 10.4, Immature Gran % (Auto) 0.600, Neut % (Auto) 66.6, Lymph % (Auto) 21.2, [place] % (Auto) 8.9, Eos % (Auto) 1.9, Baso % (Auto) 0.8, Absolute Neuts (auto) 8.2 H, Absolute Lymphs (auto) 2.62, Nucleated RBC % 0, POC Glucose 165 H Micro: Microbiology 12/22/23 19:45 Stool Stool Lactoferrin - Final 12/22/23 19:45 Stool Clostridioides difficile (PCR) - Final 12/22/23 16:25 Mucosa - Nose SARS-CoV-2, Influenza & RSV (PCR) - Final Radiography Diagnostic Testing: Radiology Impression Abdomen/Pelvis CT 12/22/23 16:12 IMPRESSION: Diffuse diverticular changes of the colon without evidence for acute diverticulitis No evidence for small bowel obstruction or other acute abnormality Electronically Signed: Brennan Santos MD at 17:25 EDT Reading Location ID and State: [facility] / [place] Tel , Service support , Chest X-Ray 12/22/23 17:00 IMPRESSION: Chronic bibasilar interstitial thickening and ASHD. No acute cardiopulmonary pathology Electronically Signed: Brennan Santos MD at 17:30 EDT Reading Location ID and State: [facility] / [place] Tel , Service support , Rhythm Strip Rhythm Strip: Sinus Rhythm Rate: 75 Ectopy: None Physical Exam Narrative GENERAL: cooperative HEENT: Atraumatic; normocephalic EYES; Anicteric, Normal Conjunctiva NECK; supple, normal thyroid, RESPIRATORY: Diminished to auscultation CARDIOVASCULAR: Regular S1 S2, GI: soft, normoactive bowel sounds, : No Renal angle tenderness; EXTREMITIES: No edema, no clubbing, MUSCULOSKELETAL: no muscle wasting NEURO: Awake; no lateralizing signs. SKIN: No Rash PSYCH; Flat affect Assessment & Plan Assessment/Plan (1) Gastroenteritis: (2) ABNER (acute kidney injury): PLAN: Plan Patient is an 88-year gentleman resident as an extended care facility who was sent to the ED on account of hypotension. Patient had apparently experienced nausea vomiting and diarrhea prior to being diagnosed with hypotension. Admitted to the regular nursing floor for subsequent management 1. Acute gastroenteritis ? Treated symptomatically to and enteric pathogen sent for further eval 2. Hypotension ? Secondary to severe dehydration from patient's acute gastroenteritis resuscitated with IV fluids with holding of his antihypertensives 3. Acute kidney injury ? Superimposed on chronic kidney disease stage III. Baseline creatinine 1.4 creatinine on admission was 1.9 monitoring with subsequent BMPs 4. Essential hypertension ? Patient antihypertensives held on admission given his presentation 5. Dyslipidemia ?Patient is on statin therapy, continued at home dose 6. Diabetes mellitus type II -patient's oral hypoglycemics held. Placed on Accu-Cheks a.c. and at bedtime and covered with sliding scale insulin 7. Dementia ? Supportive care as well as donepezil which was continued 8. Class I obesity with BMI of 32.3 ? Complicating care 9. Physical deconditioning ? Requested for PT OT eval and forensic social worker to assist with discharge planning 10. DVT prophylaxis ? On enoxaparin Charges/Coding Visit Charges Inpatient E&M: 22528 Subs Hosp L2
[2023-12-23 08:02] LABS: Anion Gap 7 (5-15); BUN 27 mg/dL (7-18); BUN/Creat Ratio 19.3 RATIO (10-20); Calcium,Total 9.4 mg/dL (8.5-10.1); Chloride 107 mmol/L (98-107); EST Glomerular Filtration Rate 51 mL/min (>60); Est Glom Filt Rate - Afr Amer 61 mL/min (>60); Glucose 166 mg/dL (74-106); Potassium 4.1 mmol/L (3.5-5.1); Sodium Level 139 mmol/L (136-145)
[2023-12-23] MEDS: Metoprolol Tartrate 25 MG Tablet PO ×2 (08:41→21:53)
[2023-12-23] MEDS: Donepezil HCl 5 MG Tablet PO (08:41)
[2023-12-23] MEDS: Menthol/Lanolin/Calamine/Znox 113 GM Tube 1 APPLIC TOPICAL ×2 (08:42→21:53)
[2023-12-23] MEDS: Nystatin Powder 15gm Bottle 1 APPLIC TOPICAL ×2 (08:42→21:58)
[2023-12-23] MEDS: Clopidogrel Bisulfate 75 MG Tablet PO (08:42)
[2023-12-23] MEDS: Insulin Lispro 100 UNIT/ML INSULN.PEN SC ×3 (11:00→21:56)
[2023-12-23 11:30] LABS: Bedside Glucose 267 mg/dL (74-106)
[2023-12-23 13:13] LABS: Magnesium 2.7 mg/dL (1.6-2.6); Phosphorus 0.6 mg/dL (2.5-4.9)
[2023-12-23] MEDS: Potassium Phosphate 40 MM in 0.9% Normal Saline (500mL Bag) 500 ML 62.5 MM IV (14:15)
--- NOTE | 2023-12-23 14:31 | CASEMGMT ---
Addendum entered by Myranda Gutierrez 12/23/23 14:54: SonDavid, returned SW call and reports that the plan is for pt to return to [facility] at d/c. DCA updated. KEI Tejeda Original Note: Social Work- SW called pt to discuss preferences at d/c. Pt reports that son David is POA and makes all decisions for pt. Pt provided contact information for David as [phone]. SW to obtain POA papers from [facility]. SW called David and left a voicemail requesting a return call. MANOHAR advised that status of return to [facility] is pending. KEI Tejeda
--- NOTE | 2023-12-23 14:39 | CASEMGMT ---
Discharge Planning Updates sent to [facility] via [employer]. Asked if pt was skilled or private pay. Also requested a copy of HC POA and Living Will. Yuni Billy DC Planning Asst.
[2023-12-23 16:56] LABS: Bedside Glucose 210 mg/dL (74-106)
[2023-12-23] MEDS: Enoxaparin 40 MG/0.4 ML Syringe SC (21:53)
[2023-12-23] MEDS: Atorvastatin Calcium 40 MG Tablet PO (21:53)
[2023-12-23] MEDS: Na Biphos/Potassium Phosphate PACKET 1 PACKET PO (21:58)
[2023-12-23 22:38] LABS: Bedside Glucose 192 mg/dL (74-106)
[2023-12-24] VITALS (10 sets, daily range): BP systolic 145–156; BP diastolic 57–62; PULSE 64–101; RESP 16–18; TEMP 36.5–37; O2SAT 92–94
[2023-12-24] MEDS: Acetaminophen 500 MG Tablet 1000 MG PO (02:45)
[2023-12-24] MEDS: Insulin Lispro 100 UNIT/ML INSULN.PEN SC ×4 (06:27→22:24)
[2023-12-24 06:46] LABS: Bedside Glucose 193 mg/dL (74-106)
--- NOTE | 2023-12-24 07:30 | PCM.PN.HOSP ---
Reason for Visit Reason for Visit: Diagnoses Noninfective gastroenteritis and colitis, unspecified (12/22/23) Acute kidney failure, unspecified (12/22/23) Subjective Subjective Patient has not had any further episodes of diarrhea. Was seen in consultation by PT recommendation was made for further therapy on discharge. Case management subsequently consulted. Objective Data Objective Data Vital Signs: Vital Signs Temp Pulse Resp BP Pulse Ox O2 Del Method 98.6 F 75 16 145/62 H 94 Room Air 12/24/23 06:22 12/24/23 06:22 12/24/23 06:22 12/24/23 06:22 12/24/23 06:22 12/24/23 06:22 Oxygen Delivery Method Room Air Weight: 110.9 kg Body Mass Index (BMI) 32.2 Intake & Output: Intake and Output for Last 24 Hours 12/22/23 12/23/23 12/24/23 23:59 23:59 23:59 Intake Total 1000 / 1200 4213.3333 / 4413.3333 300 / 300 Balance 1000 / 1200 4213.3333 / 4413.3333 300 / 300 Lab / Micro Data 12/24/23 07:55 12/24/23 07:55 Labs: Laboratory Results - last 24 hr 12/23/23 07:01: WBC 12.4 H, RBC 3.88 L, Hgb 12.6 L, Hct 37.3 L, MCV 96.1 H, MCH 32.5 H, MCHC 33.8, RDW Std Deviation 43.5, RDW Coeff of Genesis 12.5, Plt Count 269, MPV 10.4, Immature Gran % (Auto) 0.600, Neut % (Auto) 66.6, Lymph % (Auto) 21.2, [place] % (Auto) 8.9, Eos % (Auto) 1.9, Baso % (Auto) 0.8, Absolute Neuts (auto) 8.2 H, Absolute Lymphs (auto) 2.62, Nucleated RBC % 0, Sodium 139, Potassium 4.1, Chloride 107, Carbon Dioxide 25.0, Anion Gap 7, BUN 27 H, Creatinine 1.40 H, Estim Creat Clear Calc 46.70, Est GFR (MDRD) Af Amer 61, Est GFR (MDRD) Non-Af 51 L, BUN/Creatinine Ratio 19.3, Glucose 166 H, Calcium 9.4, Phosphorus 0.6 L*, Magnesium 2.7 H 12/23/23 10:57: POC Glucose 267 H 12/23/23 16:22: POC Glucose 210 H 12/23/23 21:56: POC Glucose 192 H 12/24/23 06:26: POC Glucose 193 H Micro: Microbiology 12/22/23 19:45 Stool Stool Lactoferrin - Final 12/22/23 19:45 Stool Enteric Bacteriology - Final 12/22/23 19:45 Stool Clostridioides difficile (PCR) - Final 12/22/23 16:25 Mucosa - Nose SARS-CoV-2, Influenza & RSV (PCR) - Final Rhythm Strip Rhythm Strip: Sinus Rhythm Rate: 75 Ectopy: None Physical Exam Narrative GENERAL: cooperative HEENT: Atraumatic; normocephalic EYES; Anicteric, Normal Conjunctiva NECK; supple, normal thyroid, RESPIRATORY: Diminished to auscultation CARDIOVASCULAR: Regular S1 S2, GI: soft, normoactive bowel sounds, : No Renal angle tenderness; EXTREMITIES: No edema, no clubbing, MUSCULOSKELETAL: no muscle wasting NEURO: Awake; no lateralizing signs. SKIN: No Rash PSYCH; Flat affect Assessment & Plan Assessment/Plan (1) Gastroenteritis: (2) ABNER (acute kidney injury): PLAN: Plan Patient is an 88-year gentleman resident as an extended care facility who was sent to the ED on account of hypotension. Patient had apparently experienced nausea vomiting and diarrhea prior to being diagnosed with hypotension. Admitted to the regular nursing floor for subsequent management 1. Acute gastroenteritis ? Treated symptomatically to and enteric pathogen sent for further eval ? 12/24/2023 acute gastroenteritis resolved 2. Hypotension ? Secondary to severe dehydration from patient's acute gastroenteritis resuscitated with IV fluids with holding of his antihypertensives 3. Acute kidney injury ? Superimposed on chronic kidney disease stage III. Baseline creatinine 1.4 creatinine on admission was 1.9 monitoring with subsequent BMPs 4. Essential hypertension ? Patient antihypertensives held on admission given his presentation 5. Dyslipidemia ?Patient is on statin therapy, continued at home dose 6. Diabetes mellitus type II -patient's oral hypoglycemics held. Placed on Accu-Cheks a.c. and at bedtime and covered with sliding scale insulin 7. Dementia ? Supportive care as well as donepezil which was continued 8. Class I obesity with BMI of 32.3 ? Complicating care 9. Physical deconditioning ? Requested for PT OT eval and marriage and family social worker to assist with discharge planning 10. DVT prophylaxis ? On enoxaparin 11. Hypophosphatemia ? Corrected per protocol Time spent in the patient's overall evaluation,decision-making process, review of diagnostic data, adjustment of management, discussion with other providers, nursing nursing and ancillary staff involved in patient's care documentation, 36 minutes Charges/Coding Visit Charges Inpatient E&M: 75512 Subs Hosp L2
[2023-12-24 08:38] LABS: Absolute Neutrophil Count 6.5 X10^3/uL (2.0-7.7); Basophil# 0.06 X10^3/uL; Basophil% 0.6 % (0-1); Eosinophil# 0.21 X10^3/uL; Eosinophils% 2.1 % (0-5); Hematocrit 34.8 % (40-54); Hemoglobin 11.4 g/dL (13.0-16.5); Lymphocyte % 19.4 % (19-41); Mean Corp Hgb Conc 32.8 g/dL (32-36); Mean Corpuscular Hgb 31.8 pg (27.0-32.0); Mean Corpuscular Volume 96.9 fL (80-94); Mean Platelet Vol. 10.6 fl (6.2-12.0); Monocyte# 1.01 X10^3/uL; Monocyte% 10.3 % (0-10); NRBC Flagged by Analyzer 0 % (0-5); Neutrophil # 6.53 X10^3/uL (2.7-7.7); Neutrophil % 66.9 % (47-70); Platelet Count 254 K/mm3 (150-450); RBC Distribution Width CV 12.2 % (11.6-14.6); RBC Distribution Width SD 43.8 fl (35.1-43.9); Red Blood Count 3.59 M/mm3 (4.6-6.2); White Blood Count 9.8 K/mm3 (4.4-11.0)
[2023-12-24 09:23] LABS: Anion Gap 7 (5-15); BUN 22 mg/dL (7-18); Calcium,Total 8.8 mg/dL (8.5-10.1); Chloride 106 mmol/L (98-107); Creatinine, Serum 1.22 mg/dL (0.70-1.30); EST Glomerular Filtration Rate 59 mL/min (>60); Est Glom Filt Rate - Afr Amer 72 mL/min (>60); Estimated Creatinine Clearance 53.59 ml/min; Glucose 184 mg/dL (74-106); Phosphorus 3.2 mg/dL (2.5-4.9); Potassium 3.9 mmol/L (3.5-5.1); Sodium Level 139 mmol/L (136-145)
--- NOTE | 2023-12-24 10:18 | CASEMGMT ---
Addendum entered by Yuni Billy 12/27/23 09:34: Updates sent to [facility] with note that precert will be submitted for potential admission today. Yuni Billy DC Planning Asst. Addendum entered by Yuni Billy 12/24/23 11:39: Pt will need a snf stay prior to to returning to [place]. [facility] will have open TCC bed on Wednesday. SW updated. Yuni Billy DC Planning Asst. Original Note: Discharge Planning Therapy updates sent to [facility] with note asking if pt is appropriate to return to [place]. Awaiting response. Yuni Billy DC Planning Asst.
[2023-12-24] MEDS: Donepezil HCl 5 MG Tablet PO (11:03)
[2023-12-24] MEDS: Metoprolol Tartrate 25 MG Tablet PO ×2 (11:03→22:19)
[2023-12-24] MEDS: Na Biphos/Potassium Phosphate PACKET 1 PACKET PO ×2 (11:03→22:19)
[2023-12-24] MEDS: Clopidogrel Bisulfate 75 MG Tablet PO (11:03)
[2023-12-24] MEDS: Nystatin Powder 15gm Bottle 1 APPLIC TOPICAL ×2 (11:04→22:19)
[2023-12-24] MEDS: Menthol/Lanolin/Calamine/Znox 113 GM Tube 1 APPLIC TOPICAL ×2 (11:04→22:19)
--- NOTE | 2023-12-24 11:34 | CASEMGMT ---
Social Work- SW called pt son to update on pt therapy recommendations of SNF, as well as to see if pt son can send POA papers. YARELIS left voicemail. KEI Tejeda
--- NOTE | 2023-12-24 11:35 | CASEMGMT ---
Addendum entered by Myranda Gutierrez 12/24/23 11:42: [facility] does not have a bed until Wednesday. SW will submit for precert at that time. KEI Tejeda Original Note: Social Work- [facility] provided updated therapy notes to JAMIE FAUST; [facility] GOVIND is recommending SNF prior to return to [place]. YARELIS called pt son to update. SW left voicemail. SW received a return call from pt son who reports that he is agreeable to pt going skilled prior to transition to [facility] program as planned. SW provided education on process of referral approval and insurance precert. Pt son agreeable. YARELIS inquired of POA. Pt son believed that he provided a copy to dr Massey. There is no [facility] in [facility]. Pt son reports that he will email a copy of POA. YARELIS to follow for additional needs. KEI Tejeda
[2023-12-24 12:04] LABS: Bedside Glucose 243 mg/dL (74-106)
--- NOTE | 2023-12-24 15:27 | CASEMGMT ---
Per SUDHA Whitmore. SW inquired of POA. Pt son believed that he provided a copy to dr Massey. There is no POA in [facility]. Pt son reports that he will email a copy of POA. KEI Ewing
[2023-12-24 16:57] LABS: Bedside Glucose 193 mg/dL (74-106)
[2023-12-24] MEDS: Atorvastatin Calcium 40 MG Tablet PO (22:19)
[2023-12-24] MEDS: Enoxaparin 40 MG/0.4 ML Syringe SC (22:19)
[2023-12-24 23:03] LABS: Bedside Glucose 188 mg/dL (74-106)
[2023-12-25] VITALS (9 sets, daily range): BP systolic 146–173; BP diastolic 59–91; PULSE 65–88; RESP 16–18; TEMP 36.2–36.8; O2SAT 93–98
[2023-12-25 04:48] LABS: Absolute Lymphocyte Count 2.19 X10^3/uL (0.83-4.51); Absolute Neutrophil Count 7.3 X10^3/uL (2.0-7.7); Basophil# 0.05 X10^3/uL; Basophil% 0.5 % (0-1); Eosinophil# 0.19 X10^3/uL; Eosinophils% 1.7 % (0-5); Hematocrit 37.6 % (40-54); Hemoglobin 12.2 g/dL (13.0-16.5); Lymphocyte # 2.19 X10^3/ul (0.83-4.51); Lymphocyte % 19.8 % (19-41); Mean Corp Hgb Conc 32.4 g/dL (32-36); Mean Corpuscular Hgb 31.2 pg (27.0-32.0); Mean Corpuscular Volume 96.2 fL (80-94); Monocyte# 1.25 X10^3/uL; Monocyte% 11.3 % (0-10); NRBC Flagged by Analyzer 0 % (0-5); Neutrophil # 7.28 X10^3/uL (2.7-7.7); Neutrophil % 65.9 % (47-70); Platelet Count 271 K/mm3 (150-450); RBC Distribution Width CV 12.3 % (11.6-14.6); RBC Distribution Width SD 43.1 fl (35.1-43.9); Red Blood Count 3.91 M/mm3 (4.6-6.2); White Blood Count 11.1 K/mm3 (4.4-11.0)
[2023-12-25 05:10] LABS: Anion Gap 6 (5-15); BUN 17 mg/dL (7-18); Chloride 104 mmol/L (98-107); Creatinine, Serum 1.13 mg/dL (0.70-1.30); EST Glomerular Filtration Rate 65 mL/min (>60); Est Glom Filt Rate - Afr Amer 79 mL/min (>60); Estimated Creatinine Clearance 57.86 ml/min; Glucose 190 mg/dL (74-106); Magnesium 1.8 mg/dL (1.6-2.6); Phosphorus 2.8 mg/dL (2.5-4.9); Potassium 4.1 mmol/L (3.5-5.1); Sodium Level 136 mmol/L (136-145)
[2023-12-25] MEDS: Insulin Lispro 100 UNIT/ML INSULN.PEN SC ×4 (06:52→21:28)
[2023-12-25 07:13] LABS: Bedside Glucose 186 mg/dL (74-106)
--- NOTE | 2023-12-25 07:44 | PN.HOSP_ITS ---
Reason for Visit Reason for Visit: Diagnoses Noninfective gastroenteritis and colitis, unspecified (12/22/23) Acute kidney failure, unspecified (12/22/23) Subjective Subjective Patient seen had a relatively uneventful night. Awaiting transfer to a long-term facility pending insurance approval Objective Data Objective Data Vital Signs: Vital Signs Temp Pulse Resp BP Pulse Ox O2 Del Method 98.2 F 65 16 155/85 H 94 Room Air 12/25/23 04:07 12/25/23 06:10 12/25/23 04:07 12/25/23 04:07 12/25/23 04:07 12/25/23 07:33 Oxygen Delivery Method Room Air Weight: 110.9 kg Body Mass Index (BMI) 32.2 Intake & Output: Intake and Output for Last 24 Hours 12/23/23 12/24/23 12/25/23 23:59 23:59 23:59 Intake Total 4213.3333 / 4413.3333 1250 / 1450 400 / 400 Balance 4213.3333 / 4413.3333 1250 / 1450 400 / 400 Lab / Micro Data 12/25/23 04:35 12/25/23 04:35 Labs: Laboratory Results - last 24 hr 12/24/23 07:55: WBC 9.8, RBC 3.59 L, Hgb 11.4 L, Hct 34.8 L, MCV 96.9 H, MCH 31.8, MCHC 32.8, RDW Std Deviation 43.8, RDW Coeff of Genesis 12.2, Plt Count 254, MPV 10.6, Immature Gran % (Auto) 0.700, Neut % (Auto) 66.9, Lymph % (Auto) 19.4, [place] % (Auto) 10.3 H, Eos % (Auto) 2.1, Baso % (Auto) 0.6, Absolute Neuts (auto) 6.5, Absolute Lymphs (auto) 1.90, Nucleated RBC % 0, Sodium 139, Potassium 3.9, Chloride 106, Carbon Dioxide 26.0, Anion Gap 7, BUN 22 H, Creatinine 1.22, Estim Creat Clear Calc 53.59, Est GFR (MDRD) Af Amer 72, Est GFR (MDRD) Non-Af 59 L, BUN/Creatinine Ratio 18.0, Glucose 184 H, Calcium 8.8, Phosphorus 3.2, Magnesium 2.0 12/24/23 11:10: POC Glucose 243 H 12/24/23 16:32: POC Glucose 193 H 12/24/23 22:23: POC Glucose 188 H 12/25/23 04:35: WBC 11.1 H, RBC 3.91 L, Hgb 12.2 L, Hct 37.6 L, MCV 96.2 H, MCH 31.2, MCHC 32.4, RDW Std Deviation 43.1, RDW Coeff of Genesis 12.3, Plt Count 271, MPV 10.0, Immature Gran % (Auto) 0.800, Neut % (Auto) 65.9, Lymph % (Auto) 19.8, [place] % (Auto) 11.3 H, Eos % (Auto) 1.7, Baso % (Auto) 0.5, Absolute Neuts (auto) 7.3, Absolute Lymphs (auto) 2.19, Nucleated RBC % 0, Sodium 136, Potassium 4.1, Chloride 104, Carbon Dioxide 26.0, Anion Gap 6, BUN 17, Creatinine 1.13, Estim Creat Clear Calc 57.86, Est GFR (MDRD) Af Amer 79, Est GFR (MDRD) Non-Af 65, BUN/Creatinine Ratio 15.0, Glucose 190 H, Calcium 9.0, Phosphorus 2.8, Magnesium 1.8 12/25/23 06:51: POC Glucose 186 H Micro: Microbiology 12/23/23 22:25 Sputum, Expectorated/Coughed Gram Stain - Final 12/22/23 19:45 Stool Stool Lactoferrin - Final 12/22/23 19:45 Stool Enteric Bacteriology - Final 12/22/23 19:45 Stool Clostridioides difficile (PCR) - Final 12/22/23 16:25 Mucosa - Nose SARS-CoV-2, Influenza & RSV (PCR) - Final Rhythm Strip Rhythm Strip: Sinus Rhythm Rate: 75 Ectopy: None Physical Exam Narrative GENERAL: cooperative HEENT: Atraumatic; normocephalic EYES; Anicteric, Normal Conjunctiva NECK; supple, normal thyroid, RESPIRATORY: Diminished to auscultation CARDIOVASCULAR: Regular S1 S2, GI: soft, normoactive bowel sounds, : No Renal angle tenderness; EXTREMITIES: No edema, no clubbing, MUSCULOSKELETAL: no muscle wasting NEURO: Awake; no lateralizing signs. SKIN: No Rash PSYCH; Flat affect Assessment & Plan Assessment/Plan (1) Gastroenteritis: (2) ABNER (acute kidney injury): PLAN: Plan Patient is an 88-year gentleman resident as an extended care facility who was sent to the ED on account of hypotension. Patient had apparently experienced nausea vomiting and diarrhea prior to being diagnosed with hypotension. Admitted to the regular nursing floor for subsequent management 1. Acute gastroenteritis ? Treated symptomatically to and enteric pathogen sent for further eval ? 12/24/2023 acute gastroenteritis resolved 2. Hypotension ? Secondary to severe dehydration from patient's acute gastroenteritis resuscitated with IV fluids with holding of his antihypertensives ? 12/25/2023 patient hypotension resolved will resume antihypertensives 3. Acute kidney injury ? Superimposed on chronic kidney disease stage III. Baseline creatinine 1.4 creatinine on admission was 1.9 monitoring with subsequent BMPs 4. Essential hypertension ? Patient antihypertensives held on admission given his presentation ? 12/25/2023; with patient blood pressure have not stabilized plan is to resume antihypertensives 5. Dyslipidemia ?Patient is on statin therapy, continued at home dose 6. Diabetes mellitus type II -patient's oral hypoglycemics held. Placed on Accu-Cheks a.c. and at bedtime and covered with sliding scale insulin ? 12/25/2023; patient blood glucose slightly elevated however given his advanced age aggressive hyperglycemia control should not be the goal 7. Dementia ? Supportive care as well as donepezil which was continued 8. Class I obesity with BMI of 32.3 ? Complicating care 9. Physical deconditioning ? Requested for PT OT eval and high school social studies teacher to assist with discharge planning 10. DVT prophylaxis ? On enoxaparin 11. Hypophosphatemia ? Corrected per protocol Time spent in the patient's overall evaluation,decision-making process, review of diagnostic data, adjustment of management, discussion with other providers, nursing nursing and ancillary staff involved in patient's care documentation, 36 minutes Charges/Coding Visit Charges Inpatient E&M: 72542 Subs Hosp L2
[2023-12-25] MEDS: Na Biphos/Potassium Phosphate PACKET 1 PACKET PO ×2 (07:45→21:17)
[2023-12-25] MEDS: Clopidogrel Bisulfate 75 MG Tablet PO (07:45)
[2023-12-25] MEDS: Metoprolol Tartrate 25 MG Tablet PO ×2 (07:45→21:16)
[2023-12-25] MEDS: Menthol/Lanolin/Calamine/Znox 113 GM Tube 1 APPLIC TOPICAL ×2 (07:45→21:16)
[2023-12-25] MEDS: Donepezil HCl 5 MG Tablet PO (07:45)
[2023-12-25] MEDS: Nystatin Powder 15gm Bottle 1 APPLIC TOPICAL ×2 (07:46→21:16)
[2023-12-25] MEDS: metFORMIN HCl 1,000 MG Tablet 1000 MG PO ×2 (08:54→16:48)
[2023-12-25] MEDS: Empagliflozin 25 MG Tablet PO (08:55)
[2023-12-25] MEDS: Losartan Potassium 50 MG Tablet PO (08:56)
[2023-12-25 12:20] LABS: Bedside Glucose 194 mg/dL (74-106)
[2023-12-25 17:23] LABS: Bedside Glucose 181 mg/dL (74-106)
[2023-12-25] MEDS: Enoxaparin 40 MG/0.4 ML Syringe SC (21:17)
[2023-12-25] MEDS: Atorvastatin Calcium 40 MG Tablet PO (21:17)
[2023-12-25 21:47] LABS: Bedside Glucose 169 mg/dL (74-106)
[2023-12-26] VITALS (7 sets, daily range): BP systolic 119–160; BP diastolic 50–70; PULSE 75–96; RESP 17–18; TEMP 35.9–37.2; O2SAT 93–95
[2023-12-26] MEDS: Losartan Potassium 50 MG Tablet PO (05:32)
[2023-12-26 05:46] LABS: Absolute Lymphocyte Count 2.62 X10^3/uL (0.83-4.51); Absolute Neutrophil Count 8.8 X10^3/uL (2.0-7.7); Basophil# 0.08 X10^3/uL; Basophil% 0.6 % (0-1); Eosinophil# 0.17 X10^3/uL; Eosinophils% 1.3 % (0-5); Hematocrit 40.8 % (40-54); Hemoglobin 13.3 g/dL (13.0-16.5); Lymphocyte # 2.62 X10^3/ul (0.83-4.51); Lymphocyte % 19.8 % (19-41); Mean Corp Hgb Conc 32.6 g/dL (32-36); Mean Corpuscular Hgb 31.4 pg (27.0-32.0); Mean Corpuscular Volume 96.5 fL (80-94); Mean Platelet Vol. 10.3 fl (6.2-12.0); Monocyte# 1.38 X10^3/uL; Monocyte% 10.4 % (0-10); NRBC Flagged by Analyzer 0 % (0-5); Neutrophil # 8.84 X10^3/uL (2.7-7.7); Platelet Count 292 K/mm3 (150-450); RBC Distribution Width CV 12.2 % (11.6-14.6); RBC Distribution Width SD 42.9 fl (35.1-43.9); Red Blood Count 4.23 M/mm3 (4.6-6.2); White Blood Count 13.2 K/mm3 (4.4-11.0)
[2023-12-26 06:14] LABS: Anion Gap 8 (5-15); BUN 19 mg/dL (7-18); Calcium,Total 9.5 mg/dL (8.5-10.1); Chloride 103 mmol/L (98-107); Creatinine, Serum 1.19 mg/dL (0.70-1.30); EST Glomerular Filtration Rate 61 mL/min (>60); Est Glom Filt Rate - Afr Amer 74 mL/min (>60); Estimated Creatinine Clearance 54.94 ml/min; Glucose 167 mg/dL (74-106); Sodium Level 137 mmol/L (136-145)
[2023-12-26] MEDS: Insulin Lispro 100 UNIT/ML INSULN.PEN SC ×4 (06:22→21:02)
--- NOTE | 2023-12-26 07:36 | PN.HOSP_ITS ---
Reason for Visit Reason for Visit: Diagnoses Noninfective gastroenteritis and colitis, unspecified (12/22/23) Acute kidney failure, unspecified (12/22/23) Subjective Subjective Patient seen denies any pain. No diarrhea. Awaiting insurance pre-CERT prior to transfer to shelter facility. WBC count however remains elevated Objective Data Objective Data Vital Signs: Vital Signs Temp Pulse Resp BP Pulse Ox O2 Del Method 98.1 F 84 18 160/59 H 95 Room Air 12/26/23 05:33 12/26/23 05:33 12/26/23 05:33 12/26/23 05:33 12/26/23 05:33 12/26/23 05:33 Oxygen Delivery Method Room Air Weight: 110.9 kg Body Mass Index (BMI) 32.2 Intake & Output: Intake and Output for Last 24 Hours 12/24/23 12/25/23 12/26/23 23:59 23:59 22:59 Intake Total 1250 / 1450 400 / 520 180 / 180 Balance 1250 / 1450 400 / 520 180 / 180 Lab / Micro Data 12/26/23 04:55 12/26/23 04:55 Labs: Laboratory Results - last 24 hr 12/25/23 12:00: POC Glucose 194 H 12/25/23 16:47: POC Glucose 181 H 12/25/23 21:28: POC Glucose 169 H 12/26/23 04:55: WBC 13.2 H, RBC 4.23 L, Hgb 13.3, Hct 40.8, MCV 96.5 H, MCH 31.4, MCHC 32.6, RDW Std Deviation 42.9, RDW Coeff of Genesis 12.2, Plt Count 292, MPV 10.3, Immature Gran % (Auto) 0.900, Neut % (Auto) 67.0, Lymph % (Auto) 19.8, [place] % (Auto) 10.4 H, Eos % (Auto) 1.3, Baso % (Auto) 0.6, Absolute Neuts (auto) 8.8 H, Absolute Lymphs (auto) 2.62, Nucleated RBC % 0, Sodium 137, Potassium 4.0, Chloride 103, Carbon Dioxide 26.0, Anion Gap 8, BUN 19 H, Creatinine 1.19, Estim Creat Clear Calc 54.94, Est GFR (MDRD) Af Amer 74, Est GFR (MDRD) Non-Af 61, BUN/Creatinine Ratio 16.0, Glucose 167 H, Calcium 9.5 Micro: Microbiology 12/22/23 16:25 Blood Culture (Wb) - Anticubital Left Blood Culture - Preliminary No growth in 5 days. 12/23/23 22:25 Sputum, Expectorated/Coughed Gram Stain - Final 12/23/23 22:25 Sputum, Expectorated/Coughed Respiratory Culture - Preliminary Staphylococcus aureus 12/22/23 20:45 Stool Stool Occult Blood (DRU) - Final 12/22/23 19:45 Stool Stool Lactoferrin - Final 12/22/23 19:45 Stool Enteric Bacteriology - Final 12/22/23 19:45 Stool Clostridioides difficile (PCR) - Final 12/22/23 16:25 Mucosa - Nose SARS-CoV-2, Influenza & RSV (PCR) - Final Rhythm Strip Rhythm Strip: Sinus Rhythm Rate: 75 Ectopy: None Physical Exam Narrative GENERAL: cooperative HEENT: Atraumatic; normocephalic EYES; Anicteric, Normal Conjunctiva NECK; supple, normal thyroid, RESPIRATORY: Diminished to auscultation CARDIOVASCULAR: Regular S1 S2, GI: soft, normoactive bowel sounds, : No Renal angle tenderness; EXTREMITIES: No edema, no clubbing, MUSCULOSKELETAL: no muscle wasting NEURO: Awake; no lateralizing signs. SKIN: No Rash PSYCH; Flat affect Assessment & Plan Assessment/Plan (1) Gastroenteritis: (2) ABNER (acute kidney injury): PLAN: Plan Patient is an 88-year gentleman resident as an extended care facility who was sent to the ED on account of hypotension. Patient had apparently experienced nausea vomiting and diarrhea prior to being diagnosed with hypotension. Admitted to the regular nursing floor for subsequent management 1. Acute gastroenteritis ? Treated symptomatically to and enteric pathogen sent for further eval ? 12/24/2023 acute gastroenteritis resolved 2. Hypotension ? Secondary to severe dehydration from patient's acute gastroenteritis resuscitated with IV fluids with holding of his antihypertensives ? 12/25/2023 patient hypotension resolved will resume antihypertensives ? 01/12/2024; blood pressure remained stable 3. Acute kidney injury ? Superimposed on chronic kidney disease stage III. Baseline creatinine 1.4 creatinine on admission was 1.9 monitoring with subsequent BMPs ? 01/12/2024; ABNER resolved 4. Essential hypertension ? Patient antihypertensives held on admission given his presentation ? 12/25/2023; with patient blood pressure have not stabilized plan is to resume antihypertensives 5. Dyslipidemia ?Patient is on statin therapy, continued at home dose 6. Diabetes mellitus type II -patient's oral hypoglycemics held. Placed on Accu-Cheks a.c. and at bedtime and covered with sliding scale insulin ? 12/25/2023; patient blood glucose slightly elevated however given his advanced age aggressive hyperglycemia control should not be the goal 7. Dementia ? Supportive care as well as donepezil which was continued 8. Class I obesity with BMI of 32.3 ? Complicating care 9. Physical deconditioning ? Requested for PT OT eval and public health social worker to assist with discharge planning ? 01/22/2024; awaiting insurance pre-CERT prior to transfer to shelter facility 10. DVT prophylaxis ? On enoxaparin 11. Hypophosphatemia ? Corrected per protocol Time spent in the patient's overall evaluation,decision-making process, review of diagnostic data, adjustment of management, discussion with other providers, nursing nursing and ancillary staff involved in patient's care documentation, 36 minutes Charges/Coding Visit Charges Inpatient E&M: 49610 Subs Hosp L2
[2023-12-26] MEDS: Menthol/Lanolin/Calamine/Znox 113 GM Tube 1 APPLIC TOPICAL ×2 (08:17→21:02)
[2023-12-26] MEDS: Donepezil HCl 5 MG Tablet PO (08:18)
[2023-12-26] MEDS: Metoprolol Tartrate 25 MG Tablet PO ×2 (08:18→21:02)
[2023-12-26] MEDS: Nystatin Powder 15gm Bottle 1 APPLIC TOPICAL ×2 (08:18→21:03)
[2023-12-26] MEDS: metFORMIN HCl 1,000 MG Tablet 1000 MG PO ×2 (08:18→17:10)
[2023-12-26] MEDS: Na Biphos/Potassium Phosphate PACKET 1 PACKET PO ×2 (08:19→21:03)
[2023-12-26] MEDS: Empagliflozin 25 MG Tablet PO (08:19)
[2023-12-26] MEDS: Clopidogrel Bisulfate 75 MG Tablet PO (08:19)
[2023-12-26 08:32] LABS: Bedside Glucose 156 mg/dL (74-106)
[2023-12-26 11:53] LABS: Bedside Glucose 204 mg/dL (74-106)
[2023-12-26] MEDS: Doxycycline 100 MG CAPSULE PO ×2 (12:26→21:02)
[2023-12-26] MEDS: 0.9% Saline Lock 10 ML Syringe IV (14:56)
[2023-12-26 17:47] LABS: Bedside Glucose 232 mg/dL (74-106)
[2023-12-26] MEDS: Atorvastatin Calcium 40 MG Tablet PO (21:02)
[2023-12-26] MEDS: MELATONIN 3 MG TABLET PO (21:03)
[2023-12-26] MEDS: Enoxaparin 40 MG/0.4 ML Syringe SC (21:03)
[2023-12-26 21:26] LABS: Bedside Glucose 211 mg/dL (74-106)
[2023-12-27 03:00] VITALS: BP 134/58; PULSE 76; RESP 20; TEMP 37.2; O2SAT 93
[2023-12-27] MEDS: Insulin Lispro 100 UNIT/ML INSULN.PEN SC ×2 (06:20→11:05)
[2023-12-27 06:41] LABS: Bedside Glucose 176 mg/dL (74-106)
[2023-12-27 06:55] LABS: Absolute Lymphocyte Count 2.84 X10^3/uL (0.83-4.51); Absolute Neutrophil Count 7.5 X10^3/uL (2.0-7.7); Basophil% 0.8 % (0-1); Eosinophil# 0.24 X10^3/uL; Hematocrit 37.1 % (40-54); Hemoglobin 12.4 g/dL (13.0-16.5); Lymphocyte # 2.84 X10^3/ul (0.83-4.51); Lymphocyte % 23.3 % (19-41); Mean Corp Hgb Conc 33.4 g/dL (32-36); Mean Corpuscular Volume 95.6 fL (80-94); Mean Platelet Vol. 10.3 fl (6.2-12.0); Monocyte# 1.38 X10^3/uL; Monocyte% 11.3 % (0-10); NRBC Flagged by Analyzer 0 % (0-5); Neutrophil # 7.47 X10^3/uL (2.7-7.7); Neutrophil % 61.4 % (47-70); Platelet Count 299 K/mm3 (150-450); RBC Distribution Width CV 12.2 % (11.6-14.6); RBC Distribution Width SD 42.5 fl (35.1-43.9); Red Blood Count 3.88 M/mm3 (4.6-6.2); White Blood Count 12.2 K/mm3 (4.4-11.0)
[2023-12-27 07:15] LABS: Anion Gap 8 (5-15); BUN 31 mg/dL (7-18); BUN/Creat Ratio 20.5 RATIO (10-20); Calcium,Total 9.1 mg/dL (8.5-10.1); Chloride 104 mmol/L (98-107); Creatinine, Serum 1.51 mg/dL (0.70-1.30); EST Glomerular Filtration Rate 47 mL/min (>60); Est Glom Filt Rate - Afr Amer 56 mL/min (>60); Glucose 177 mg/dL (74-106); Sodium Level 137 mmol/L (136-145)
--- NOTE | 2023-12-27 07:15 | PN.HOSP_ITS ---
Reason for Visit Reason for Visit: Diagnoses Noninfective gastroenteritis and colitis, unspecified (12/22/23) Acute kidney failure, unspecified (12/22/23) Subjective Subjective Patient grew MRSA in the sputum subsequently placed on doxycycline. Patient kidney function did worsen potential nephrotoxic medications held Objective Data Objective Data Vital Signs: Vital Signs Temp Pulse Resp BP Pulse Ox O2 Del Method 98.9 F 76 20 H 134/58 H 93 Room Air 12/27/23 03:00 12/27/23 03:00 12/27/23 03:00 12/27/23 03:00 12/27/23 03:00 12/27/23 03:00 Oxygen Delivery Method Room Air Weight: 110.9 kg Body Mass Index (BMI) 32.2 Intake & Output: Intake and Output for Last 24 Hours 12/25/23 12/26/23 12/27/23 23:59 22:59 23:59 Intake Total 400 / 520 480 / 630 250 / 250 Balance 400 / 520 480 / 630 250 / 250 Lab / Micro Data 12/27/23 06:27 12/27/23 06:27 Labs: Laboratory Results - last 24 hr 12/26/23 06:22: POC Glucose 156 H 12/26/23 11:34: POC Glucose 204 H 12/26/23 17:09: POC Glucose 232 H 12/26/23 20:45: POC Glucose 211 H 12/27/23 06:18: POC Glucose 176 H 12/27/23 06:27: WBC 12.2 H, RBC 3.88 L, Hgb 12.4 L, Hct 37.1 L, MCV 95.6 H, MCH 32.0, MCHC 33.4, RDW Std Deviation 42.5, RDW Coeff of Genesis 12.2, Plt Count 299, MPV 10.3, Immature Gran % (Auto) 1.200 H, Neut % (Auto) 61.4, Lymph % (Auto) 23.3, [place] % (Auto) 11.3 H, Eos % (Auto) 2.0, Baso % (Auto) 0.8, Absolute Neuts (auto) 7.5, Absolute Lymphs (auto) 2.84, Nucleated RBC % 0, Sodium 137, Potassium 4.0, Chloride 104, Carbon Dioxide 25.0, Anion Gap 8, BUN 31 H, C reatinine 1.51 H, Estim Creat Clear Calc 43.30, Est GFR (MDRD) Af Amer 56 L, Est GFR (MDRD) Non-Af 47 L, BUN/Creatinine Ratio 20.5 H, Glucose 177 H, Calcium 9.1 Micro: Microbiology 12/23/23 22:25 Sputum, Expectorated/Coughed Gram Stain - Final 12/23/23 22:25 Sputum, Expectorated/Coughed Respiratory Culture - Final Meth. resistant Staph. aureus 12/22/23 16:25 Blood Culture (Wb) - Anticubital Left Blood Culture - Preliminary No growth in 5 days. 12/22/23 20:45 Stool Stool Occult Blood (DRU) - Final 12/22/23 19:45 Stool Stool Lactoferrin - Final 12/22/23 19:45 Stool Enteric Bacteriology - Final 12/22/23 19:45 Stool Clostridioides difficile (PCR) - Final 12/22/23 16:25 Mucosa - Nose SARS-CoV-2, Influenza & RSV (PCR) - Final Rhythm Strip Rhythm Strip: Sinus Rhythm Rate: 75 Ectopy: None Physical Exam Narrative GENERAL: cooperative HEENT: Atraumatic; normocephalic EYES; Anicteric, Normal Conjunctiva NECK; supple, normal thyroid, RESPIRATORY: Diminished to auscultation CARDIOVASCULAR: Regular S1 S2, GI: soft, normoactive bowel sounds, : No Renal angle tenderness; EXTREMITIES: No edema, no clubbing, MUSCULOSKELETAL: no muscle wasting NEURO: Awake; no lateralizing signs. SKIN: No Rash PSYCH; Flat affect Assessment & Plan Assessment/Plan (1) Gastroenteritis: (2) ABNER (acute kidney injury): PLAN: Plan Patient is an 88-year gentleman resident as an extended care facility who was sent to the ED on account of hypotension. Patient had apparently experienced nausea vomiting and diarrhea prior to being diagnosed with hypotension. Admitted to the regular nursing floor for subsequent management 1. Acute gastroenteritis ? Treated symptomatically to and enteric pathogen sent for further eval ? 12/24/2023 acute gastroenteritis resolved 2. Hypotension ? Secondary to severe dehydration from patient's acute gastroenteritis resuscitated with IV fluids with holding of his antihypertensives ? 12/25/2023 patient hypotension resolved will resume antihypertensives ? 01/12/2024; blood pressure remained stable 3. Acute kidney injury ? Superimposed on chronic kidney disease stage III. Baseline creatinine 1.4 creatinine on admission was 1.9 monitoring with subsequent BMPs ? 12/25/2023; ABNER resolved ? 12/27/2023 kidney function did worsen again patient started on IV fluid losartan and metformin held 4. Essential hypertension ? Patient antihypertensives held on admission given his presentation ? 12/25/2023; with patient blood pressure have not stabilized plan is to resume antihypertensives 5. Dyslipidemia ?Patient is on statin therapy, continued at home dose 6. Diabetes mellitus type II -patient's oral hypoglycemics held. Placed on Accu-Cheks a.c. and at bedtime and covered with sliding scale insulin ? 12/25/2023; patient blood glucose slightly elevated however given his advanced age aggressive hyperglycemia control should not be the goal 7. Dementia ? Supportive care as well as donepezil which was continued 8. Class I obesity with BMI of 32.3 ? Complicating care 9. Physical deconditioning ? Requested for PT OT eval and nephrology social worker to assist with discharge planning ? 01/22/2024; awaiting insurance pre-CERT prior to transfer to senior care facility 10. DVT prophylaxis ? On enoxaparin 11. Hypophosphatemia ? Corrected per protocol 12. Acute MRSA bronchitis ? Placed on doxycycline Time spent in the patient's overall evaluation,decision-making process, review of diagnostic data, adjustment of management, discussion with other providers, nursing nursing and ancillary staff involved in patient's care documentation, 36 minutes Charges/Coding Visit Charges Inpatient E&M: 44119 Subs Hosp L2
[2023-12-27] MEDS: 0.9% Normal Saline (1000mL) 1,000 ML 100 ML IV (08:36)
[2023-12-27 09:20] VITALS: BP 129/49; PULSE 88; RESP 16; TEMP 37.2; O2SAT 92
[2023-12-27] MEDS: Menthol/Lanolin/Calamine/Znox 113 GM Tube 1 APPLIC TOPICAL (09:27)
[2023-12-27] MEDS: Nystatin Powder 15gm Bottle 1 APPLIC TOPICAL (09:27)
[2023-12-27 09:28] VITALS: PULSE 88
[2023-12-27] MEDS: Empagliflozin 25 MG Tablet PO (09:28)
[2023-12-27] MEDS: Clopidogrel Bisulfate 75 MG Tablet PO (09:28)
[2023-12-27] MEDS: Donepezil HCl 5 MG Tablet PO (09:28)
[2023-12-27] MEDS: Doxycycline 100 MG CAPSULE PO (09:28)
[2023-12-27] MEDS: Metoprolol Tartrate 25 MG Tablet PO (09:28)
[2023-12-27] MEDS: Na Biphos/Potassium Phosphate PACKET 1 PACKET PO (09:29)
--- NOTE | 2023-12-27 11:06 | PCM.TXEXTCAR ---
Diet Diet Order/Speech Therapy: 12/23/23 08:55 Diet: Regular - General Routine Orders/Code Status Routine Lab Work: BMP (On 12/30/2023) Code Status: Full Code Wound(s) Left knee: Wound Type: Abrasion Left knee and side of knee: Wound Type: scabs Right upper arm: Wound Type: Skin Tear Left forearm: Wound Type: Skin Tear Right side of face: Wound Type: mole right upper back: Wound Type: Abrasion Therapies Physical Therapy: Eval and Treat Occupational Therapy: Eval and Treat Problem/Diagnosis (1) Gastroenteritis: Status: Acute Code(s): K52.9 - Noninfective gastroenteritis and colitis, unspecified (2) ABNER (acute kidney injury): Status: Acute Code(s): N17.9 - Acute kidney failure, unspecified Plan Patient is an 88-year gentleman resident as an extended care facility who was sent to the ED on account of hypotension. Patient had apparently experienced nausea vomiting and diarrhea prior to being diagnosed with hypotension. Admitted to the regular nursing floor for subsequent management 1. Acute gastroenteritis ? Treated symptomatically to and enteric pathogen sent for further eval ? 12/24/2023 acute gastroenteritis resolved 2. Hypotension ? Secondary to severe dehydration from patient's acute gastroenteritis resuscitated with IV fluids with holding of his antihypertensives ? 12/25/2023 patient hypotension resolved will resume antihypertensives ? 01/12/2024; blood pressure remained stable 3. Acute kidney injury ? Superimposed on chronic kidney disease stage III. Baseline creatinine 1.4 creatinine on admission was 1.9 monitoring with subsequent BMPs ? 12/25/2023; ABNER resolved ? 12/27/2023 kidney function did worsen again patient started on IV fluid losartan and metformin held 4. Essential hypertension ? Patient antihypertensives held on admission given his presentation ? 12/25/2023; with patient blood pressure have not stabilized plan is to resume antihypertensives 5. Dyslipidemia ?Patient is on statin therapy, continued at home dose 6. Diabetes mellitus type II -patient's oral hypoglycemics held. Placed on Accu-Cheks a.c. and at bedtime and covered with sliding scale insulin ? 12/25/2023; patient blood glucose slightly elevated however given his advanced age aggressive hyperglycemia control should not be the goal 7. Dementia ? Supportive care as well as donepezil which was continued 8. Class I obesity with BMI of 32.3 ? Complicating care 9. Physical deconditioning ? Requested for PT OT eval and clinical social work aide to assist with discharge planning ? 01/22/2024; awaiting insurance pre-CERT prior to transfer to senior living facility 10. DVT prophylaxis ? On enoxaparin 11. Hypophosphatemia ? Corrected per protocol 12. Acute MRSA bronchitis ? Placed on doxycycline Time spent in the patient's overall evaluation,decision-making process, review of diagnostic data, adjustment of management, discussion with other providers, nursing nursing and ancillary staff involved in patient's care documentation, 36 minutes Allergies/Procedures Done in Hospital Allergies No Known Allergies Allergy (Verified 12/22/23 12:52) Type of Care/Length of Stay Estimated LOS: Convalescent Care Less Than 30 days Type of Care Needed: Skilled Rehab Potential: Fair Prognosis: Fair Additional Orders/Day of Discharge Day of Discharge: 12/27/23 Discharge Plan Admission Admit Date/Time: 12/22/23 19:34 Attending Provider: Jame Ruiz Primary Care Provider: Ariel Keys Consulting Providers: Narayan Hubbard Discharge Orders/Prescriptions Prescriptions: New doxycycline monohydrate 100 mg Capsule 100 mg PO BID Qty: 14 0RF potassium, sodium phosphates 280-160-250 mg Powder In Packet 1 packet PO BID Qty: 60 0RF melatonin 3 mg Tablet 3 mg PO QHS PRN PRN (Reason: Insomnia) Qty: 0 0RF loperamide 2 mg Capsule 4 mg PO Q6H PRN PRN (Reason: Diarrhea/Loose Stools) Qty: 0 0RF insulin lispro [Humalog KwikPen Insulin] 100 unit/mL Insulin Pen See Protocol subcut ACHS Qty: 0 0RF Protocol: 1. Sliding Scale Insulin Low Dosing Condition: 150-224 mg/dl = 1 unit Condition: 225-299 mg/dl = 2 units Condition: 300-374 mg/dl = 3 units Condition: 375-449 mg/dl = 4 units Condition: Greater than 449 call physician Protocol Text: Suggested for: - Patients on Total Daily Insulin Dose of 15-27 units - Thin, elderly, renal patients LOW DOSING ALGORITHM Continued metformin 500 mg tablet 1,000 mg PO BID donepezil 5 mg tablet 5 mg PO QDAY acetaminophen 500 mg capsule 1,000 mg PO TID PRN (Reason: pain) losartan 50 mg tablet 50 mg PO DAILY dapagliflozin propanediol [Farxiga] 10 mg tablet 10 mg PO DAILY metoprolol tartrate 25 mg tablet 25 mg PO BID Qty: 180 3RF clopidogrel 75 mg tablet 75 mg PO DAILY Qty: 90 3RF atorvastatin 40 mg tablet 40 mg PO QHS Qty: 90 3RF Referrals / Follow Up: Ariel Keys MD [Primary Care Provider] - Disposition Disposition (needs filled in before D/C Order can be placed): Senior Care Facility
--- NOTE | 2023-12-27 11:12 | DS.PCM_ITS ---
Providers Date of Admission: 12/22/23 Date of Discharge: 12/27/23 Primary Care Physician: Dr. Ariel Keys MD Reason For Visit: DIARRHEA HYPOTENSION RESOLVED Diagnosis Discharge Diagnosis (1) Gastroenteritis: Status: Acute Code(s): K52.9 - Noninfective gastroenteritis and colitis, unspecified (2) ABNER (acute kidney injury): Status: Acute Code(s): N17.9 - Acute kidney failure, unspecified Plan Patient is an 88-year gentleman resident as an extended care facility who was sent to the ED on account of hypotension. Patient had apparently experienced nausea vomiting and diarrhea prior to being diagnosed with hypotension. Admitted to the regular nursing floor for subsequent management 1. Acute gastroenteritis ? Treated symptomatically to and enteric pathogen sent for further eval ? 12/24/2023 acute gastroenteritis resolved 2. Hypotension ? Secondary to severe dehydration from patient's acute gastroenteritis resuscitated with IV fluids with holding of his antihypertensives ? 12/25/2023 patient hypotension resolved will resume antihypertensives ? 01/12/2024; blood pressure remained stable 3. Acute kidney injury ? Superimposed on chronic kidney disease stage III. Baseline creatinine 1.4 creatinine on admission was 1.9 monitoring with subsequent BMPs ? 12/25/2023; ABNER resolved ? 12/27/2023 kidney function did worsen again patient started on IV fluid losartan and metformin held 4. Essential hypertension ? Patient antihypertensives held on admission given his presentation ? 12/25/2023; with patient blood pressure have not stabilized plan is to resume antihypertensives 5. Dyslipidemia ?Patient is on statin therapy, continued at home dose 6. Diabetes mellitus type II -patient's oral hypoglycemics held. Placed on Accu-Cheks a.c. and at bedtime and covered with sliding scale insulin ? 12/25/2023; patient blood glucose slightly elevated however given his advanced age aggressive hyperglycemia control should not be the goal 7. Dementia ? Supportive care as well as donepezil which was continued 8. Class I obesity with BMI of 32.3 ? Complicating care 9. Physical deconditioning ? Requested for PT OT eval and social economist to assist with discharge planning ? 01/22/2024; awaiting insurance pre-CERT prior to [facility] to [facility] 10. DVT prophylaxis ? On enoxaparin 11. Hypophosphatemia ? Corrected per protocol 12. Acute MRSA bronchitis ? Placed on doxycycline Time spent in the patient's overall evaluation,decision-making process, review of diagnostic data, adjustment of management, discussion with other providers, nursing nursing and ancillary staff involved in patient's care documentation, 36 minutes Medications at Discharge Home Medications metformin 500 mg tablet 1,000 mg PO BID 05/14/22 acetaminophen 500 mg capsule 1,000 mg PO TID PRN pain 08/17/23 donepezil 5 mg tablet 5 mg PO QDAY 08/17/23 atorvastatin 40 mg tablet 40 mg PO QHS heart #90 TABLETS 09/20/23 clopidogrel 75 mg tablet 75 mg PO DAILY blood thinner #90 TABLETS 09/20/23 metoprolol tartrate 25 mg tablet 25 mg PO BID #180 TABLETS 09/20/23 dapagliflozin propanediol 10 mg tablet (Farxiga) 10 mg PO DAILY 12/22/23 losartan 50 mg tablet 50 mg PO DAILY 12/22/23 doxycycline monohydrate 100 mg capsule 100 mg PO BID #14 caps 12/27/23 insulin lispro 100 unit/mL subcutaneous pen (Humalog KwikPen (U-100) Insulin) See Protocol subcut ACHS #0 mL 12/27/23 loperamide 2 mg capsule 4 mg (2 x 2 mg) PO Q6H PRN PRN Diarrhea/Loose Stools #0 caps 12/27/23 melatonin 3 mg tablet 3 mg PO QHS PRN PRN Insomnia #0 tabs 12/27/23 potassium, sodium phosphates 280 mg-160 mg-250 mg oral powder packet 1 packet PO BID #60 ea 12/27/23 Physical Exam Narrative GENERAL: cooperative HEENT: Atraumatic; normocephalic EYES; Anicteric, Normal Conjunctiva NECK; supple, normal thyroid, RESPIRATORY: Diminished to auscultation CARDIOVASCULAR: Regular S1 S2, GI: soft, normoactive bowel sounds, : No Renal angle tenderness; EXTREMITIES: No edema, no clubbing, MUSCULOSKELETAL: no muscle wasting NEURO: Awake; no lateralizing signs. SKIN: No Rash PSYCH; Flat affect Weight / BMI Weight Weight: 110.9 kg Body Mass Index (BMI) 32.2 ABG / Lab / Microbiology Data 12/27/23 06:27 12/27/23 06:27 Laboratory: Laboratory Results - last 24 hr 12/26/23 11:34: POC Glucose 204 H 12/26/23 17:09: POC Glucose 232 H 12/26/23 20:45: POC Glucose 211 H 12/27/23 06:18: POC Glucose 176 H 12/27/23 06:27: WBC 12.2 H, RBC 3.88 L, Hgb 12.4 L, Hct 37.1 L, MCV 95.6 H, MCH 32.0, MCHC 33.4, RDW Std Deviation 42.5, RDW Coeff of Genesis 12.2, Plt Count 299, MPV 10.3, Immature Gran % (Auto) 1.200 H, Neut % (Auto) 61.4, Lymph % (Auto) 23.3, Callahan % (Auto) 11.3 H, Eos % (Auto) 2.0, Baso % (Auto) 0.8, Absolute Neuts (auto) 7.5, Absolute Lymphs (auto) 2.84, Nucleated RBC % 0, Sodium 137, Potassium 4.0, Chloride 104, Carbon Dioxide 25.0, Anion Gap 8, BUN 31 H, C reatinine 1.51 H, Estim Creat Clear Calc 43.30, Est GFR (MDRD) Af Amer 56 L, Est GFR (MDRD) Non-Af 47 L, BUN/Creatinine Ratio 20.5 H, Glucose 177 H, Calcium 9.1 Microbiology: Microbiology 12/23/23 22:25 Sputum, Expectorated/Coughed Gram Stain - Final 12/23/23 22:25 Sputum, Expectorated/Coughed Respiratory Culture - Final Meth. resistant Staph. aureus 12/22/23 16:25 Blood Culture (Wb) - Anticubital Left Blood Culture - Preliminary No growth in 5 days. 12/22/23 20:45 Stool Stool Occult Blood (DRU) - Final 12/22/23 19:45 Stool Stool Lactoferrin - Final 12/22/23 19:45 Stool Enteric Bacteriology - Final 12/22/23 19:45 Stool Clostridioides difficile (PCR) - Final 12/22/23 16:25 Mucosa - Nose SARS-CoV-2, Influenza & RSV (PCR) - Final D/C Instructions Discharge Diet: No restrictions Discharge Activity: Return to Normal Activity Call your doctor if you observe: Fever of 101 or Higher, Shortness of breath, Fainting spells and Chest pain Meaningful Use Info Meaningful Use Meaningful Use Diagnoses (Choose all that apply): None applicable Ischemic Stroke Statin Dosing Therapy Reference: STATIN DOSE THERAPY REFERENCE: * Patients > 75 years receive moderate or high dose statin therapy. * Patients 75 years or YOUNGER should receive HIGH intensity statin dose unless contraindicated. You will be required to document reason for non-treatment if statin daily dose does not meet guidelines. HIGH DOSE STATIN THERAPY DAILY Atorvastatin > than or = to 40 mg Rosuvastatin > than or = to 20 mg Amlodipine + Atorvastatin > than or = to 2.5/40 mg Ezetimibe + Simvastatin 10/80 mg Simvastatin 80mg Discharge Plan Admission Admit Date/Time: 12/22/23 19:34 Attending Provider: Jame Ruiz Primary Care Provider: Ariel Keys Consulting Providers: Narayan Hubbard Discharge Orders/Prescriptions Prescriptions: New doxycycline monohydrate 100 mg Capsule 100 mg PO BID Qty: 14 0RF potassium, sodium phosphates 280-160-250 mg Powder In Packet 1 packet PO BID Qty: 60 0RF melatonin 3 mg Tablet 3 mg PO QHS PRN PRN (Reason: Insomnia) Qty: 0 0RF loperamide 2 mg Capsule 4 mg PO Q6H PRN PRN (Reason: Diarrhea/Loose Stools) Qty: 0 0RF insulin lispro [Humalog KwikPen Insulin] 100 unit/mL Insulin Pen See Protocol subcut ACHS Qty: 0 0RF Protocol: 1. Sliding Scale Insulin Low Dosing Condition: 150-224 mg/dl = 1 unit Condition: 225-299 mg/dl = 2 units Condition: 300-374 mg/dl = 3 units Condition: 375-449 mg/dl = 4 units Condition: Greater than 449 call physician Protocol Text: Suggested for: - Patients on Total Daily Insulin Dose of 15-27 units - Thin, elderly, renal patients LOW DOSING ALGORITHM Continued metformin 500 mg tablet 1,000 mg PO BID donepezil 5 mg tablet 5 mg PO QDAY acetaminophen 500 mg capsule 1,000 mg PO TID PRN (Reason: pain) losartan 50 mg tablet 50 mg PO DAILY dapagliflozin propanediol [Farxiga] 10 mg tablet 10 mg PO DAILY metoprolol tartrate 25 mg tablet 25 mg PO BID Qty: 180 3RF clopidogrel 75 mg tablet 75 mg PO DAILY Qty: 90 3RF atorvastatin 40 mg tablet 40 mg PO QHS Qty: 90 3RF Referrals / Follow Up: Keys,Ariel, MD [Primary Care Provider] - Disposition Disposition (needs filled in before D/C Order can be placed): Residential Facility Charges/Coding Visit Charges Inpatient E&M: 96541 Disch Hosp >30min
[2023-12-27 11:26] LABS: Bedside Glucose 202 mg/dL (74-106)
--- NOTE | 2023-12-27 11:26 | CASEMGMT ---
Social Work Precert has been obtained.? Physician updated and pt is ready for discharge today.? 7000 convalescent form completed in [facility]. DCA and pt son notified of discharge. Disposition: [facility], skilled level of care under convalescent stay. KEI Tejeda
--- NOTE | 2023-12-27 11:41 | CASEMGMT ---
Discharge Planning Discharge orders, signed med list, and transport time sent to [facility] via [facility]. Physicians will transport patient by cot at 12:30p. Nursing and SW updated. VM left for pts son (David). Copy of HC POA sent in snf packet. Yuni Billy DC Planning Asst.
--- NOTE | 2023-12-27 12:02 | NURSING ---
Attempted to contact son, who is POA, but was unable to reach by telephone x2.
== END 2023-12-27 13:22 | DRG 641 ==
LOC: ED 15:52 → MS3 20:10
PROVIDERS: Admitting Provider Internal Medicine; Emergency Provider Emergency Medicine; PCP Family Medicine; Referring Provider Emergency Medicine; Visit Provider Internal Medicine
DX: E86.0 Dehydration (principal); N17.9 Acute kidney failure, unspecified; R62.7 Adult failure to thrive; E11.22 Type 2 diabetes mellitus with diabetic chronic kidney disease; F03.90 Unspecified dementia, unspecified severity, without behavioral disturbance, psychotic disturbance, mood disturbance, and anxiety; N18.31 Chronic kidney disease, stage 3a; I65.23 Occlusion and stenosis of bilateral carotid arteries; I12.9 Hypertensive chronic kidney disease with stage 1 through stage 4 chronic kidney disease, or unspecified chronic kidney disease; Z68.32 Body mass index [BMI] 32.0-32.9, adult; E11.65 Type 2 diabetes mellitus with hyperglycemia; E78.5 Hyperlipidemia, unspecified; I25.10 Atherosclerotic heart disease of native coronary artery without angina pectoris; K57.30 Diverticulosis of large intestine without perforation or abscess without bleeding; S80.211A Abrasion, right knee, initial encounter; J20.9 Acute bronchitis, unspecified; W19.XXXA Unspecified fall, initial encounter; A08.4 Viral intestinal infection, unspecified; E66.811 Obesity, class 1; Z79.84 Long term (current) use of oral hypoglycemic drugs; Z87.891 Personal history of nicotine dependence; Z11.52 Encounter for screening for COVID-19; Z79.82 Long term (current) use of aspirin; Z95.5 Presence of coronary angioplasty implant and graft
CPT/HCPCS: 36415; 71046; 74177; 80048; 80053; 81001; 82274; 82962; 83605; 83630; 83690; 83735; 84100; 85025; 87040; 87070; 87077; 87177; 87186; 87205; 87209; 87493; 87506; 87631; 93005; 94668; 97110; 97116; 97162; 97166; 97530; 97535; 99285; Q9967; A4216

== ENCOUNTER → 2024-01-31 05:00 | Outpatient (REF) | payer MEDICARE, SELFPAY ==
[2023-01-27 09:11] VITALS: BMI 34.5
[2024-01-31 08:57] LABS: Absolute Lymphocyte Count 2.28 X10^3/uL (0.83-4.51); Absolute Neutrophil Count 5.9 X10^3/uL (2.0-7.7); Basophil# 0.07 X10^3/uL; Basophil% 0.7 % (0-1); Eosinophil# 0.26 X10^3/uL; Eosinophils% 2.8 % (0-5); Hematocrit 39.4 % (40-54); Hemoglobin 12.9 g/dL (13.0-16.5); Lymphocyte # 2.28 X10^3/ul (0.83-4.51); Lymphocyte % 24.1 % (19-41); Mean Corp Hgb Conc 32.7 g/dL (32-36); Mean Corpuscular Hgb 31.5 pg (27.0-32.0); Mean Corpuscular Volume 96.1 fL (80-94); Mean Platelet Vol. 10.7 fl (6.2-12.0); Monocyte# 0.88 X10^3/uL; Monocyte% 9.3 % (0-10); NRBC Flagged by Analyzer 0 % (0-5); Neutrophil # 5.89 X10^3/uL (2.7-7.7); Neutrophil % 62.4 % (47-70); Platelet Count 277 K/mm3 (150-450); White Blood Count 9.5 K/mm3 (4.4-11.0)
[2024-01-31 09:07] LABS: Anion Gap 5 (5-15); BUN 22 mg/dL (7-18); BUN/Creat Ratio 17.6 RATIO (10-20); Calcium,Total 9.7 mg/dL (8.5-10.1); Chloride 104 mmol/L (98-107); Creatinine, Serum 1.25 mg/dL (0.70-1.30); EST Glomerular Filtration Rate 58 mL/min (>60); Est Glom Filt Rate - Afr Amer 70 mL/min (>60); Glucose 138 mg/dL (74-106); Potassium 4.6 mmol/L (3.5-5.1); Sodium Level 138 mmol/L (136-145)
== END ==
LOC: OLS.WHLTSB 05:00
PROVIDERS: PCP Family Medicine; Visit Provider Internal Medicine
DX: E11.9 Type 2 diabetes mellitus without complications (principal)
CPT/HCPCS: 36415; 80048; 85025

== ENCOUNTER → 2024-03-06 | Outpatient (REF) | payer MEDICARE, SELFPAY ==
[2023-01-27 09:11] VITALS: BMI 34.5
[2024-03-06 08:51] LABS: Absolute Lymphocyte Count 3.88 X10^3/uL (0.83-4.51); Absolute Neutrophil Count 7.8 X10^3/uL (2.0-7.7); Basophil% 0.7 % (0-1); Eosinophil# 0.36 X10^3/uL; Eosinophils% 2.6 % (0-5); Hematocrit 41.3 % (40-54); Lymphocyte # 3.88 X10^3/ul (0.83-4.51); Lymphocyte % 28.3 % (19-41); Mean Corp Hgb Conc 31.5 g/dL (32-36); Mean Corpuscular Volume 98.3 fL (80-94); Mean Platelet Vol. 11.8 fl (6.2-12.0); Monocyte# 1.46 X10^3/uL; Monocyte% 10.6 % (0-10); NRBC Flagged by Analyzer 0 % (0-5); Neutrophil # 7.84 X10^3/uL (2.7-7.7); Neutrophil % 57.3 % (47-70); Platelet Count 230 K/mm3 (150-450); RBC Distribution Width CV 14.3 % (11.6-14.6); RBC Distribution Width SD 51.8 fl (35.1-43.9); White Blood Count 13.7 K/mm3 (4.4-11.0)
[2024-03-06 09:03] LABS: Anion Gap 7 (5-15); BUN 26 mg/dL (7-18); BUN/Creat Ratio 19.1 RATIO (10-20); Calcium,Total 9.6 mg/dL (8.5-10.1); Chloride 104 mmol/L (98-107); Creatinine, Serum 1.36 mg/dL (0.70-1.30); EST Glomerular Filtration Rate 52 mL/min (>60); Est Glom Filt Rate - Afr Amer 63 mL/min (>60); Glucose 141 mg/dL (74-106); Potassium 4.1 mmol/L (3.5-5.1); Sodium Level 139 mmol/L (136-145)
== END ==
LOC: OLS.WHLTSB 07:10
PROVIDERS: PCP Family Medicine; Visit Provider Internal Medicine
DX: E11.9 Type 2 diabetes mellitus without complications (principal)
CPT/HCPCS: 36415; 80048; 85025

== ENCOUNTER → 2024-03-20 04:00 | Outpatient (REF) | payer MEDICARE, SELFPAY ==
[2023-01-27 09:11] VITALS: BMI 34.5
[2024-03-20 08:07] LABS: Absolute Neutrophil Count 4.8 X10^3/uL (2.0-7.7); Basophil# 0.09 X10^3/uL; Eosinophil# 0.32 X10^3/uL; Eosinophils% 3.6 % (0-5); Hematocrit 39.2 % (40-54); Hemoglobin 12.7 g/dL (13.0-16.5); Lymphocyte % 30.1 % (19-41); Mean Corp Hgb Conc 32.4 g/dL (32-36); Mean Corpuscular Hgb 31.4 pg (27.0-32.0); Mean Platelet Vol. 11.3 fl (6.2-12.0); Monocyte# 1.02 X10^3/uL; Monocyte% 11.4 % (0-10); NRBC Flagged by Analyzer 0 % (0-5); Neutrophil # 4.78 X10^3/uL (2.7-7.7); Neutrophil % 53.2 % (47-70); Platelet Count 215 K/mm3 (150-450); RBC Distribution Width CV 14.2 % (11.6-14.6); RBC Distribution Width SD 51.2 fl (35.1-43.9); Red Blood Count 4.04 M/mm3 (4.6-6.2)
[2024-03-20 09:20] LABS: ALB/GLOB Ratio 0.7 RATIO (0.9-2.4); AST(SGOT) 23 U/L (15-37); Alanine Aminotransfer ALT/SGPT 20 U/L (16-61); Albumin, Serum 3.2 g/dL (3.2-5.0); Alkaline Phosphatase 95 U/L (45-117); Anion Gap 6 (5-15); BUN 30 mg/dL (7-18); BUN/Creat Ratio 22.7 RATIO (10-20); Calcium,Total 9.4 mg/dL (8.5-10.1); Chloride 106 mmol/L (98-107); Creatinine, Serum 1.32 mg/dL (0.70-1.30); EST Glomerular Filtration Rate 54 mL/min (>60); Est Glom Filt Rate - Afr Amer 66 mL/min (>60); Globulin 4.5 g/dL (2.2-4.2); Glucose 116 mg/dL (74-106); PSA,Total - Annual Screen 7.17 ng/mL (0.00-4.00); Potassium 4.3 mmol/L (3.5-5.1); Protein, Total 7.7 g/dL (6.4-8.2); Sodium Level 140 mmol/L (136-145)
[2024-03-21 07:56] LABS: Color, Urine Yellow (Yellow); Glucose, Dipstick 1000 mg/dl (Normal); Ketone-Dipstick Negative (Negative); Leukocyte Esterase-Dipstick 100 /ul (Negative); Nitrite-Dipstick Negative (Negative); Occult Blood-Urine 10 /ul (Negative); Protein-Dipstick 15 mg/dl (Negative); Urine Bilirubin Dipstick Negative (Negative); Urine Clarity Clear (Clear); Urine Urobilinogen Normal (Normal)
== END ==
LOC: OLS.WHLTSB 04:00
PROVIDERS: PCP Family Medicine; Referring Provider Internal Medicine; Visit Provider Internal Medicine
DX: R30.0 Dysuria (principal); B37.42 Candidal balanitis; R19.7 Diarrhea, unspecified; G47.00 Insomnia, unspecified; E11.22 Type 2 diabetes mellitus with diabetic chronic kidney disease; Z23 Encounter for immunization
CPT/HCPCS: 36415; 80053; 81002; 84153; 85025; 87086; 87088; G0103

== ENCOUNTER → 2024-03-28 05:00 | Outpatient (REF) | payer MEDICARE, SELFPAY ==
[2023-01-27 09:11] VITALS: BMI 34.5
[2024-03-28 09:16] LABS: AST(SGOT) 28 U/L (15-37); Alanine Aminotransfer ALT/SGPT 21 U/L (16-61); Alkaline Phosphatase 83 U/L (45-117); Bilirubin, Direct 0.15 mg/dL (0.00-0.30); Globulin 3.7 g/dL (2.2-4.2); Protein, Total 6.7 g/dL (6.4-8.2)
[2024-03-28 09:58] LABS: Vitamin B12 323 pg/mL (211-911); Vitamin D,25 Hydroxy 31.8 ng/mL
== END ==
LOC: OLS.WHLTSB 05:00
PROVIDERS: PCP Family Medicine; Visit Provider Internal Medicine
DX: E56.9 Vitamin deficiency, unspecified (principal); E11.22 Type 2 diabetes mellitus with diabetic chronic kidney disease; N18.9 Chronic kidney disease, unspecified; G47.00 Insomnia, unspecified
CPT/HCPCS: 36415; 80076; 82306; 82607; 84443

== ENCOUNTER → 2024-04-03 05:00 | Outpatient (REF) | payer MEDICARE, SELFPAY ==
[2023-01-27 09:11] VITALS: BMI 34.5
[2024-04-03 08:50] LABS: Absolute Lymphocyte Count 2.38 X10^3/uL (0.83-4.51); Absolute Neutrophil Count 3.2 X10^3/uL (2.0-7.7); Basophil# 0.07 X10^3/uL; Eosinophil# 0.18 X10^3/uL; Eosinophils% 2.5 % (0-5); Hematocrit 34.6 % (40-54); Hemoglobin 11.2 g/dL (13.0-16.5); Lymphocyte # 2.38 X10^3/ul (0.83-4.51); Lymphocyte % 33.2 % (19-41); Mean Corp Hgb Conc 32.4 g/dL (32-36); Mean Corpuscular Hgb 31.6 pg (27.0-32.0); Mean Corpuscular Volume 97.7 fL (80-94); Mean Platelet Vol. 11.5 fl (6.2-12.0); Monocyte# 1.25 X10^3/uL; Monocyte% 17.5 % (0-10); NRBC Flagged by Analyzer 0 % (0-5); Neutrophil # 3.23 X10^3/uL (2.7-7.7); Neutrophil % 45.1 % (47-70); Platelet Count 181 K/mm3 (150-450); RBC Distribution Width CV 14.6 % (11.6-14.6); RBC Distribution Width SD 53.3 fl (35.1-43.9); Red Blood Count 3.54 M/mm3 (4.6-6.2); White Blood Count 7.2 K/mm3 (4.4-11.0)
[2024-04-03 09:09] LABS: Anion Gap 6 (5-15); BUN 27 mg/dL (7-18); BUN/Creat Ratio 18.6 RATIO (10-20); Calcium,Total 9.3 mg/dL (8.5-10.1); Chloride 106 mmol/L (98-107); Creatinine, Serum 1.45 mg/dL (0.70-1.30); EST Glomerular Filtration Rate 49 mL/min (>60); Est Glom Filt Rate - Afr Amer 59 mL/min (>60); Glucose 132 mg/dL (74-106); Potassium 4.2 mmol/L (3.5-5.1); Sodium Level 139 mmol/L (136-145)
== END ==
LOC: OLS.WHLTSB 05:00
PROVIDERS: PCP Family Medicine; Visit Provider Internal Medicine
DX: E11.22 Type 2 diabetes mellitus with diabetic chronic kidney disease; G47.00 Insomnia, unspecified; Z23 Encounter for immunization; Z74.1 Need for assistance with personal care
CPT/HCPCS: 36415; 80048; 85025

== ENCOUNTER 2024-04-07 14:48 | Emergency (ER) | payer MEDICARE, SELFPAY ==
[2023-01-27 09:11] VITALS: BMI 34.5
[2024-04-07] VITALS (7 sets, daily range): BP systolic 142–178; BP diastolic 60–81; PULSE 78–97; RESP 16–18; TEMP 36.6–36.7; O2SAT 95–98; BMI 32.5
--- NOTE | 2024-04-07 15:16 | CT_ITS ---
EXAM: CT Head Without Intravenous Contrast CLINICAL INDICATION: TECHNIQUE: Axial computed tomography images of the head/brain without intravenous contrast. This CT exam was performed using one or more of the following dose reduction techniques: automated exposure control, adjustment of the mA and/or kV according to patient size, and/or use of iterative reconstruction technique. COMPARISON: No relevant prior studies available. FINDINGS: BRAIN AND EXTRA-AXIAL SPACES: The cerebral and cerebellar sulci are prominent consistent with brain atrophy. Areas of decreased attenuation in the deep cerebral white matter are consistent with small vessel ischemic/degenerative changes. No acute intracranial hemorrhage, midline shift or mass effect. If symptoms persist, further evaluation with MRI is recommended. BONES/JOINTS: Unremarkable. No acute fracture. SOFT TISSUES: Unremarkable. SINUSES: Mucosal thickening of the maxillary sinuses, bilaterally. MASTOID AIR CELLS: Unremarkable as visualized. No mastoid effusion. CT/Brain/Head without Contrast IMPRESSION: 1. Generalized brain atrophy. 2. Small vessel ischemic/degenerative changes. 3. No acute intracranial hemorrhage, midline shift or mass effect. If symptoms persist, further evaluation with MRI is recommended. Reading Location[facility]
--- NOTE | 2024-04-07 15:16 | CT_ITS ---
EXAM: CT Cervical Spine Without Intravenous Contrast CLINICAL INDICATION: TECHNIQUE: Axial computed tomography images of the cervical spine without intravenous contrast. This CT exam was performed using one or more of the following dose reduction techniques: automated exposure control, adjustment of the mA and/or kV according to patient size, and/or use of iterative reconstruction technique. COMPARISON: No relevant prior studies available. FINDINGS: VERTEBRAE: Multilevel anterior spurring of C3-C6. Multilevel facet arthropathy of C3-C7. No acute fracture. DISCS/SPINAL CANAL/NEURAL FORAMINA: See above. SOFT TISSUES: Unremarkable. CT/Spine Cervical without Contras IMPRESSION: No acute fracture. Reading Location[facility]
--- NOTE | 2024-04-07 15:17 | RAD_ITS ---
EXAM: XR Lumbosacral Spine, 2 or 3 Views CLINICAL INDICATION: TECHNIQUE: Frontal and lateral views of the lumbar spine and sacrum. COMPARISON: No relevant prior studies available. FINDINGS: VERTEBRAE: Degenerative facet arthropathy throughout the lumbar spine, most prominent in the lower lumbar spine. Normal alignment. No acute fracture. SACRUM/COCCYX: Unremarkable as visualized. No acute fracture. DISC SPACES: Degenerative disc disease throughout the lumbar spine. SOFT TISSUES: Unremarkable. VASCULATURE: Scattered calcified atherosclerotic disease of aorta. RAD/Lumbar Spine 2 or 3 Views IMPRESSION: 1. No acute fracture. 2. Degenerative changes lumbar spine as described. Reading Location: [facility]
--- NOTE | 2024-04-07 15:21 | ED.VIS.FALL ---
HPI HPI - Fall History of Present Illness Chief Complaint: Fall Informant: patient and SNF Occured/Mechanism Occurred: Today Mechanism/Context: Yes same level fall and Yes cannot recall fall Pain/Injury Pain Location: head Quality of Pain: Aching Worsened by: Nothing Relieved by: Nothing Associated Symptoms Associated Symptoms: Negative for Parasthesias or Weakness Narrative Narrative: [facility]. Patient has a history of dementia and is a poor informant. Patient was found in the bathroom. Patient has an abrasion to his nose and forehead. Patient denies any paresthesias or weakness. Patient does not think he had a loss of consciousness. Patient denies any neck or back pain. Patient describes his pain as aching. [facility] Medical History Diabetes Dementia Bilateral carotid artery stenosis Dyspnea on exertion Diabetes mellitus, type II Hyperlipidemia Essential hypertension Atherosclerosis of coronary artery of [place] heart without angina pectoris Exertional chest pain Home Medications ?Medication ?Instructions ?Recorded ?Last Taken ?Type metformin 500 mg tablet 1,000 mg PO BID 05/14/22 Unknown History acetaminophen 500 mg capsule 1,000 mg PO TID PRN pain 08/17/23 Unknown History donepezil 5 mg tablet 5 mg PO QDAY 08/17/23 Unknown History atorvastatin 40 mg tablet 40 mg PO QHS heart #90 TABLETS 09/20/23 Unknown Rx clopidogrel 75 mg tablet 75 mg PO DAILY blood thinner #90 09/20/23 Unknown Rx TABLETS metoprolol tartrate 25 mg tablet 25 mg PO BID #180 TABLETS 09/20/23 Unknown Rx dapagliflozin propanediol 10 mg 10 mg PO DAILY 12/22/23 Unknown History tablet (Farxiga) losartan 50 mg tablet 50 mg PO DAILY 12/22/23 Unknown History doxycycline monohydrate 100 mg 100 mg PO BID #14 caps 12/27/23 Unknown Rx capsule insulin lispro 100 unit/mL See Protocol subcut ACHS #0 mL 12/27/23 Unknown Rx subcutaneous pen (Humalog KwikPen (U-100) Insulin) loperamide 2 mg capsule 4 mg (2 x 2 mg) PO Q6H PRN PRN 12/27/23 Unknown Rx Diarrhea/Loose Stools #0 caps melatonin 3 mg tablet 3 mg PO QHS PRN PRN Insomnia #0 12/27/23 Unknown Rx tabs potassium, sodium phosphates 280 1 packet PO BID #60 ea 12/27/23 Unknown Rx mg-160 mg-250 mg oral powder packet Allergy/AdvReac Type Severity Reaction Status Date / Time No Known Allergies Allergy Verified 12/22/23 12:52 Surgical History History of left-sided carotid endarterectomy (2017) History of coronary artery stent placement (01/12/19) Social History Smoking Status: Former smoker how long ago did patient quit smokin + years ago alcohol intake: never substance use type: does not use caffeine: No ROS ROS ED Constitutional Constitutional ED: Denies chills or fever(s) Eyes Eyes: Denies blurry vision or change in vision ENT ENT ED: Reports sore throat; Denies rhinorrhea Cardiovascular Cardiovascular: Denies chest pain or palpitations Respiratory/Chest Respiratory/Chest: Denies cough or dyspnea Gastrointestinal Gastrointestinal: Denies nausea or vomiting Genitourinary Genitourinary ED: Denies dysuria or hematuria Musculoskeletal Musculoskeletal: Denies back pain or neck pain Integumentary Denies abscess or rash Neurologic Neurologic: Reports headache(s); Denies weakness Allergic/Immunologic Allergic/Immunologic ED: Denies mouth swelling or urticaria EXAM Physical Exam Const Vital Signs: 04/07/24 14:49 Temperature 97.9 F Temperature Source Oral Pulse Rate 81 Respiratory Rate 18 Blood Pressure 178/81 H Blood Pressure Mean 113 Pulse Ox 95 Oxygen Delivery Method Room Air Positive well nourished and well developed General Appearance ED: well developed and NAD HEENT Reports normocephalic HEENT Narrative: There is a superficial abrasion over the left forehead and across the bridge of the nose. There is also an abrasion over the occipital scalp. There is no active bleeding. There are no foreign bodies noted. There is no bony crepitance or step-off noted. Neck full ROM and supple Chest Wall palpation of chest normal Resp normal respiratory effort and clear to auscultation bilaterally Cardio regular rate and regular rhythm GI non-tender and non-distended Palpation: soft Neuro CN's II-XII intact bilaterally, moves all extremities, no focal motor deficits and no sensory deficits noted Sensorium / Orientation: alert Motor Exam: strength 5/5 throughout Psych mental status grossly normal MDM MDM MDM Narrative Medical decision making narrative: Differential diagnosis includes concussion, intracranial bleeding, closed head injury, cervical spine fracture, lumbar compression fracture, and muscle strain. CT scan of the brain will be obtained to assess for intracranial bleeding. CT scan of the cervical spine will be obtained to assess for cervical spine fracture. X-rays of lumbar spine will be obtained to assess for lumbar compression fracture. Radiography Diagnostic Testing: X-rays of the lumbar spine were obtained. There are 2 views. On my independent interpretation, there is no acute fracture or spondylolisthesis noted. There are some degenerative changes noted. Radiologist also interpreted the x-rays and agrees. CT scan of the cervical spine was obtained. There is no acute fracture or spondylolisthesis. There is no soft tissue swelling. This was interpreted by the radiologist and was also independently reviewed by myself. CT scan of the brain was obtained. There is no acute intracranial abnormality. This was interpreted by the radiologist and was also independently reviewed by myself. Discharge Plan Triage Chief Complaint: Fall ED Provider: Tra Roy Dx/Rx/DC Orders Clinical Impression: Closed head injury, Facial abrasion, Fall Instructions: ED Head Injury (Adult) Prescriptions: No Action metformin 500 mg tablet 1,000 mg PO BID donepezil 5 mg tablet 5 mg PO QDAY acetaminophen 500 mg capsule 1,000 mg PO TID PRN (Reason: pain) losartan 50 mg tablet 50 mg PO DAILY dapagliflozin propanediol [Farxiga] 10 mg tablet 10 mg PO DAILY doxycycline monohydrate 100 mg Capsule 100 mg PO BID Qty: 14 0RF potassium, sodium phosphates 280-160-250 mg Powder In Packet 1 packet PO BID Qty: 60 0RF melatonin 3 mg Tablet 3 mg PO QHS PRN PRN (Reason: Insomnia) Qty: 0 0RF loperamide 2 mg Capsule 4 mg PO Q6H PRN PRN (Reason: Diarrhea/Loose Stools) Qty: 0 0RF insulin lispro [Humalog KwikPen Insulin] 100 unit/mL Insulin Pen See Protocol subcut ACHS Qty: 0 0RF Protocol: 1. Sliding Scale Insulin Low Dosing Condition: 150-224 mg/dl = 1 unit Condition: 225-299 mg/dl = 2 units Condition: 300-374 mg/dl = 3 units Condition: 375-449 mg/dl = 4 units Condition: Greater than 449 call physician Protocol Text: Suggested for: - Patients on Total Daily Insulin Dose of 15-27 units - Thin, elderly, renal patients LOW DOSING ALGORITHM metoprolol tartrate 25 mg tablet 25 mg PO BID Qty: 180 3RF clopidogrel 75 mg tablet 75 mg PO DAILY Qty: 90 3RF atorvastatin 40 mg tablet 40 mg PO QHS Qty: 90 3RF Primary Care Provider: Tj Maurice Referrals: Tj Maurice MD [Primary Care Provider] - 5-7 Days Print Language: Yi Disposition Disposition: Custodial Facility Discharge Location: [facility]
[2024-04-07] MEDS: Diphth,Pertuss(Acell),Tet Vac 0.5 ML Vial IM (15:43)
[2024-04-07] MEDS: Acetaminophen 500 MG Tablet 1000 MG PO (15:43)
--- NOTE | 2024-04-07 17:29 | ED.RN ---
PT IS FROM [facility] C/O FALL THAT WAS UNWITNESSED. PT HAS HEAD CONTUSION, ABRASIONS TO BOTH ARMS WITH SKIN TEARS THAT THE FACILITY DRESSED. PT CONTENT SHOWING NO APPARENT DISTRESS. TYLENOL GIVEN AND WAITING ON CT/XRAY RESULTS.
== END 2024-04-07 23:33 | disposition skilled nursing facility (03) ==
PROVIDERS: Emergency Provider Emergency Medicine; PCP Internal Medicine; Visit Provider Emergency Medicine
DX: S00.01XA Abrasion of scalp, initial encounter (principal); F03.90 Unspecified dementia, unspecified severity, without behavioral disturbance, psychotic disturbance, mood disturbance, and anxiety; E11.9 Type 2 diabetes mellitus without complications; Z79.4 Long term (current) use of insulin; S00.31XA Abrasion of nose, initial encounter; S00.81XA Abrasion of other part of head, initial encounter; W18.30XA Fall on same level, unspecified, initial encounter; I25.10 Atherosclerotic heart disease of native coronary artery without angina pectoris; I10 Essential (primary) hypertension; Z79.02 Long term (current) use of antithrombotics/antiplatelets; Z79.84 Long term (current) use of oral hypoglycemic drugs; Z79.899 Other long term (current) drug therapy; Z87.891 Personal history of nicotine dependence
CPT/HCPCS: 70450; 72100; 72125; 90715; 99284; A4216

== ENCOUNTER → 2024-04-24 | Outpatient (CLI) | payer MEDICARE, SELFPAY ==
[2023-01-27 09:11] VITALS: BMI 34.5
--- NOTE | 2024-04-24 08:43 | MRI_ITS ---
PROCEDURE: MRI pelvis without IV contrast. REASON FOR EXAM: ELEVATED PSA, HEMATURIA,,,NO CONTRAST PER MD TECHNIQUE: Multiplanar, multisequence MRI of the prostate was performed without intravenous gadolinium-based contrast. Axial, coronal, and sagittal high-resolution T2-weighted images, axial T1-weighted images, and diffusion-weighted images with high B value were performed. CONTRAST: None COMPARISON: None. FINDINGS: Note that the exam is severely motion degraded, with some sequences being nearly nondiagnostic. Exam is further limited by the lack of IV contrast, requiring the use of an alternative PI-RADS algorithm. Additionally, exam is limited by the absence of a large [id number] T1 sequence without fat saturation, specifically limiting sensitivity for marrow replacing bony lesions particularly in the absence of IV contrast. Prostate dimensions roughly 3.8 x 5.0 x 4.3 cm with estimated volume 44.5 mL although this should be considered a best estimate given the margins of the gland are difficult to discern due to the severity of motion artifact. Peripheral Zone: Background changes of presumed prostatitis. Additional lesions as below: *Lesion 1: Right anterior peripheral zone mid gland to apex, 1.7 cm (series 9, image 20). *T2 score: Difficult to characterize given limitations, at least 3. *DWI score: 5. *DCE: Not applicable. *Overall PI-RADS score: PI-RADS 5 *Extracapsular extension: Severely limited sensitivity due to the extensive motion artifact. No definite extracapsular extension allowing for limitations, however there is capsular abutment greater than 1 cm which can be associated with microscopic extracapsular extension. *Lesion 2: Right posteromedial peripheral zone base to midgland, 1.6 cm (series 9 images 18-20). *T2 score: 5. Small areas *DWI score: Demonstrates marked restricted diffusion, technically DWI score 5. *DCE: Not applicable. *Overall PI-RADS score: Borderline and difficult to categorize given limitations; felt best considered PI-RADS 4. *Extracapsular extension: Severely limited sensitivity due to extensive motion artifacts. No definite extracapsular extension allowing for limitations however there is capsular abutment greater than 1 cm which can be associated with microscopic extracapsular extension. Note that this includes immediate abutment of the anterior rectum, base of the right seminal vesicle, and region of the right neurovascular bundle without definite invasion of these structures however early involvement can not be excluded. Transitional Zone: Severely limited evaluation due to motion. Favor PI-RADS 2 findings. Seminal vesicles: Grossly unremarkable allowing for limitations. Neurovascular bundles: As above. Lymph nodes: Grossly unremarkable allowing for limitations. Bladder: Underdistended and suboptimally evaluated, grossly unremarkable allowing for limitations. Bone marrow: Grossly unremarkable allowing for limitations. Other: Diverticulosis. Presumed paralabral cyst along the left acetabulum. Trace to small right hip joint effusion, presumably degenerative. Fat containing bilateral inguinal hernias. MRI/Pelvis (Routine) IMPRESSION: 1. Severely limited and borderline nondiagnostic noncontrast exam mostly due to motion artifact. Note also that the absence of IV contrast requires the use of an alternative PI-RADS algorithm. 2. 1.7 cm PI-RADS 5 lesion in the right anterior peripheral zone mid gland to a pex (lesion 1). 3. 1.6 cm lesion in the right posterior medial peripheral zone base to mid glan d is difficult to categorize given limitations, felt the best considered PI-RADS 4 (lesion 2). 4. Limited sensitivity for extracapsular extension given severe limitations, wi thout definite extracapsular extension identified, however there is capsular abutment greater than 1 cm by both lesions which can be associated with early/microscopic extracapsular extension. Note that this includes immediate abutment of the anterior rectum, b ase of the right seminal vesicle, and region of the right neurovascular bundle without definite invasion of these structures ho wever early involvement can not be excluded. Consider a repeat exam with optimized motion control for improved sensitivity. 5. No gross pelvic lymphadenopathy. 6. Additional description as above. Reading Location: [facility]
== END | disposition home or self-care (01) ==
LOC: MRI 08:40
PROVIDERS: PCP Internal Medicine; Referring Provider Internal Medicine; Visit Provider Internal Medicine
DX: R97.20 Elevated prostate specific antigen [PSA] (principal); R31.9 Hematuria, unspecified
CPT/HCPCS: 72195

== ENCOUNTER → 2024-05-15 | Outpatient (REF) | payer MEDICARE, SELFPAY ==
[2023-01-27 09:11] VITALS: BMI 34.5
[2024-05-15 08:59] LABS: Absolute Lymphocyte Count 2.82 X10^3/uL (0.83-4.51); Absolute Neutrophil Count 4.7 X10^3/uL (2.0-7.7); Basophil% 1.1 % (0-1); Eosinophil# 0.38 X10^3/uL; Eosinophils% 4.2 % (0-5); Lymphocyte # 2.82 X10^3/ul (0.83-4.51); Mean Corp Hgb Conc 32.4 g/dL (32-36); Mean Corpuscular Hgb 31.1 pg (27.0-32.0); Mean Corpuscular Volume 95.9 fL (80-94); Mean Platelet Vol. 11.5 fl (6.2-12.0); Monocyte# 1.06 X10^3/uL; Monocyte% 11.7 % (0-10); NRBC Flagged by Analyzer 0 % (0-5); Neutrophil # 4.65 X10^3/uL (2.7-7.7); Neutrophil % 51.1 % (47-70); Platelet Count 196 K/mm3 (150-450); RBC Distribution Width SD 49.4 fl (35.1-43.9); Red Blood Count 3.86 M/mm3 (4.6-6.2); White Blood Count 9.1 K/mm3 (4.4-11.0)
[2024-05-15 14:35] LABS: Anion Gap 12 (5-15); BUN 28 mg/dL (4-19); BUN/Creat Ratio 24.6 RATIO (10-20); Calcium,Total 9.3 mg/dL (7.6-11.0); Carbon Dioxide 24.2 mmol/L (21.0-32.0); Chloride 104 mmol/L (98-108); Creatinine, Serum 1.13 mg/dL (0.70-1.20); EST Glomerular Filtration Rate 62 (>60); Glucose 129 mg/dL (70-99); Potassium 3.9 mmol/L (3.3-5.1); Sodium Level 141 mmol/L (133-145)
== END ==
LOC: OLS.WHLCAR 05:00
PROVIDERS: PCP Internal Medicine; Visit Provider Internal Medicine
DX: E11.22 Type 2 diabetes mellitus with diabetic chronic kidney disease (principal); N18.9 Chronic kidney disease, unspecified
CPT/HCPCS: 36415; 80048; 85025

== ENCOUNTER → 2024-05-29 | Outpatient (REF) | payer MEDICARE, SELFPAY ==
[2023-01-27 09:11] VITALS: BMI 34.5
[2024-05-29 09:34] LABS: Absolute Lymphocyte Count 3.03 X10^3/uL (0.83-4.51); Absolute Neutrophil Count 3.2 X10^3/uL (2.0-7.7); Basophil# 0.07 X10^3/uL; Basophil% 0.9 % (0-1); Eosinophil# 0.31 X10^3/uL; Eosinophils% 4.1 % (0-5); Hematocrit 37.5 % (40-54); Lymphocyte # 3.03 X10^3/ul (0.83-4.51); Lymphocyte % 40.3 % (19-41); Mean Corpuscular Hgb 31.1 pg (27.0-32.0); Mean Corpuscular Volume 97.2 fL (80-94); Mean Platelet Vol. 11.2 fl (6.2-12.0); Monocyte# 0.84 X10^3/uL; Monocyte% 11.2 % (0-10); NRBC Flagged by Analyzer 0 % (0-5); Neutrophil # 3.21 X10^3/uL (2.7-7.7); Neutrophil % 42.7 % (47-70); Platelet Count 192 K/mm3 (150-450); RBC Distribution Width CV 14.2 % (11.6-14.6); RBC Distribution Width SD 50.6 fl (35.1-43.9); Red Blood Count 3.86 M/mm3 (4.6-6.2); White Blood Count 7.5 K/mm3 (4.4-11.0)
[2024-05-29 09:50] LABS: Anion Gap 11 (5-15); BUN 18 mg/dL (4-19); BUN/Creat Ratio 17.3 RATIO (10-20); Carbon Dioxide 24.9 mmol/L (21.0-32.0); Chloride 103 mmol/L (98-108); Creatinine, Serum 1.02 mg/dL (0.70-1.20); EST Glomerular Filtration Rate 70 (>60); Glucose 99 mg/dL (70-99); Potassium 4.2 mmol/L (3.3-5.1); Sodium Level 139 mmol/L (133-145)
== END ==
LOC: OLS.WHLCAR 04:00
PROVIDERS: PCP Internal Medicine; Referring Provider Internal Medicine; Visit Provider Internal Medicine
DX: E11.22 Type 2 diabetes mellitus with diabetic chronic kidney disease (principal); N18.9 Chronic kidney disease, unspecified
CPT/HCPCS: 36415; 80048; 85025

== ENCOUNTER → 2024-06-05 | Outpatient (REF) | payer MEDICARE, SELFPAY ==
[2023-01-27 09:11] VITALS: BMI 34.5
[2024-06-05 08:48] LABS: Absolute Lymphocyte Count 3.54 X10^3/uL (0.83-4.51); Absolute Neutrophil Count 3.8 X10^3/uL (2.0-7.7); Basophil% 1.1 % (0-1); Eosinophils% 4.5 % (0-5); Lymphocyte # 3.54 X10^3/ul (0.83-4.51); Lymphocyte % 39.7 % (19-41); Mean Corp Hgb Conc 32.4 g/dL (32-36); Mean Corpuscular Hgb 31.4 pg (27.0-32.0); Mean Corpuscular Volume 96.9 fL (80-94); Mean Platelet Vol. 11.1 fl (6.2-12.0); Monocyte# 0.98 X10^3/uL; NRBC Flagged by Analyzer 0 % (0-5); Neutrophil # 3.81 X10^3/uL (2.7-7.7); Neutrophil % 42.8 % (47-70); Platelet Count 212 K/mm3 (150-450); RBC Distribution Width CV 14.4 % (11.6-14.6); RBC Distribution Width SD 50.8 fl (35.1-43.9); Red Blood Count 3.82 M/mm3 (4.6-6.2); White Blood Count 8.9 K/mm3 (4.4-11.0)
[2024-06-05 09:07] LABS: Anion Gap 10 (5-15); BUN 20 mg/dL (4-19); BUN/Creat Ratio 17.7 RATIO (10-20); Calcium,Total 9.2 mg/dL (7.6-11.0); Carbon Dioxide 24.9 mmol/L (21.0-32.0); Chloride 103 mmol/L (98-108); EST Glomerular Filtration Rate 64 (>60); Glucose 105 mg/dL (70-99); Potassium 4.2 mmol/L (3.3-5.1); Sodium Level 139 mmol/L (133-145)
== END ==
LOC: OLS.WHLCAR 05:00
PROVIDERS: PCP Internal Medicine; Visit Provider Internal Medicine
DX: E11.22 Type 2 diabetes mellitus with diabetic chronic kidney disease (principal); N18.9 Chronic kidney disease, unspecified
CPT/HCPCS: 36415; 80048; 85025

== ENCOUNTER → 2024-06-19 | Outpatient (REF) | payer MEDICARE, SELFPAY ==
[2023-01-27 09:11] VITALS: BMI 34.5
[2024-06-19 09:13] LABS: Absolute Lymphocyte Count 3.35 X10^3/uL (0.83-4.51); Absolute Neutrophil Count 3.4 X10^3/uL (2.0-7.7); Basophil# 0.08 X10^3/uL; Eosinophil# 0.28 X10^3/uL; Eosinophils% 3.5 % (0-5); Hematocrit 35.2 % (40-54); Hemoglobin 11.7 g/dL (13.0-16.5); Lymphocyte # 3.35 X10^3/ul (0.83-4.51); Lymphocyte % 41.5 % (19-41); Mean Corp Hgb Conc 33.2 g/dL (32-36); Mean Corpuscular Volume 96.2 fL (80-94); Mean Platelet Vol. 11.1 fl (6.2-12.0); Monocyte# 0.96 X10^3/uL; Monocyte% 11.9 % (0-10); NRBC Flagged by Analyzer 0 % (0-5); Neutrophil # 3.36 X10^3/uL (2.7-7.7); Neutrophil % 41.5 % (47-70); Platelet Count 212 K/mm3 (150-450); RBC Distribution Width CV 14.1 % (11.6-14.6); RBC Distribution Width SD 49.8 fl (35.1-43.9); Red Blood Count 3.66 M/mm3 (4.6-6.2); White Blood Count 8.1 K/mm3 (4.4-11.0)
[2024-06-19 10:01] LABS: BUN 21 mg/dL (4-19); BUN/Creat Ratio 19.3 RATIO (10-20); Calcium,Total 9.3 mg/dL (7.6-11.0); Carbon Dioxide 24.2 mmol/L (21.0-32.0); Chloride 105 mmol/L (98-108); Creatinine, Serum 1.09 mg/dL (0.70-1.20); EST Glomerular Filtration Rate 65 (>60); Glucose 110 mg/dL (70-99); Potassium 4.3 mmol/L (3.3-5.1); Sodium Level 141 mmol/L (133-145)
[2024-06-19 10:02] LABS: Anion Gap 12 (5-15)
== END ==
LOC: OLS.WHLCAR 04:00
PROVIDERS: PCP Internal Medicine; Referring Provider Internal Medicine; Visit Provider Internal Medicine
DX: E11.22 Type 2 diabetes mellitus with diabetic chronic kidney disease (principal); N18.9 Chronic kidney disease, unspecified
CPT/HCPCS: 36415; 80048; 85025

== ENCOUNTER → 2024-06-26 | Outpatient (REF) | payer MEDICARE, SELFPAY ==
[2023-01-27 09:11] VITALS: BMI 34.5
[2024-06-26 08:42] LABS: Absolute Lymphocyte Count 3.22 X10^3/uL (0.83-4.51); Absolute Neutrophil Count 5.6 X10^3/uL (2.0-7.7); Basophil# 0.08 X10^3/uL; Basophil% 0.8 % (0-1); Eosinophil# 0.32 X10^3/uL; Eosinophils% 3.1 % (0-5); Hematocrit 34.9 % (40-54); Hemoglobin 11.7 g/dL (13.0-16.5); Lymphocyte # 3.22 X10^3/ul (0.83-4.51); Lymphocyte % 30.8 % (19-41); Mean Corp Hgb Conc 33.5 g/dL (32-36); Mean Corpuscular Hgb 31.7 pg (27.0-32.0); Mean Corpuscular Volume 94.6 fL (80-94); Mean Platelet Vol. 11.2 fl (6.2-12.0); Monocyte# 1.19 X10^3/uL; Monocyte% 11.4 % (0-10); NRBC Flagged by Analyzer 0 % (0-5); Neutrophil # 5.55 X10^3/uL (2.7-7.7); Neutrophil % 53.1 % (47-70); Platelet Count 215 K/mm3 (150-450); RBC Distribution Width SD 48.4 fl (35.1-43.9); Red Blood Count 3.69 M/mm3 (4.6-6.2); White Blood Count 10.4 K/mm3 (4.4-11.0)
[2024-06-26 09:01] LABS: BUN 20 mg/dL (4-19); Creatinine, Serum 0.92 mg/dL (0.70-1.20); Glucose 109 mg/dL (70-99)
[2024-06-26 09:02] LABS: Anion Gap 10 (5-15); BUN/Creat Ratio 21.6 RATIO (10-20); Calcium,Total 9.3 mg/dL (7.6-11.0); Carbon Dioxide 25.1 mmol/L (21.0-32.0); Chloride 103 mmol/L (98-108); EST Glomerular Filtration Rate 80 (>60); Potassium 4.2 mmol/L (3.3-5.1); Sodium Level 139 mmol/L (133-145)
== END ==
LOC: OLS.WHLCAR 05:00
PROVIDERS: PCP Internal Medicine; Visit Provider Internal Medicine
DX: E11.22 Type 2 diabetes mellitus with diabetic chronic kidney disease (principal); R19.7 Diarrhea, unspecified; F03.90 Unspecified dementia, unspecified severity, without behavioral disturbance, psychotic disturbance, mood disturbance, and anxiety; M62.561 Muscle wasting and atrophy, not elsewhere classified, right lower leg; S09.90XD Unspecified injury of head, subsequent encounter
CPT/HCPCS: 36415; 80048; 85025